=== PATIENT | male | born 1940 | race Caucasian/White ===

== ENCOUNTER → 2021-06-07 11:21 | Outpatient (CLI) | payer OTHER, SELFPAY ==
--- NOTE | ~2021-06-07 | XR_ITS ---
XR_[id number]_CR DATE: 06/07/2021 12:20 INDICATION: Fall. Right rib injury, pain TECHNIQUE: PA chest. 3 views of the right ribs. COMPARISON: 01/05/2019 PA and lateral chest FINDINGS: There is postoperative change from cervical as well as lumbar spinal fusion. There is diffuse osteopenia. No right rib fracture or bone destruction is evident. Old healed left lateral seventh and eighth rib fracture deformities are noted incidentally. Degenerative spurring and dextroscoliosis of the thoracic and lumbar spine. There is interposition of right colon between the diaphragm and the liver. IMPRESSION: Osteopenia; no apparent right rib fracture is noted Status post surgical cervical and lumbar spinal fusion Degenerative changes of the thoracic and lumbar spine Reviewed, dictated and finalized at [facility]. Reviewed, dictated and finalized at location A.
== END ==
PROVIDERS: PCP Family Medicine Adolescent Medicine; Visit Provider Family Medicine Adolescent Medicine
DX: R07.81 Pleurodynia (principal); M47.815 Spondylosis without myelopathy or radiculopathy, thoracolumbar region; Z98.1 Arthrodesis status
CPT/HCPCS: 71101

== ENCOUNTER → 2021-07-03 16:08 | Outpatient (CLI) | payer OTHER, SELFPAY ==
--- NOTE | ~2021-07-03 | XR_ITS ---
XR chest 2V DATE: 07/03/2021 16:55 INDICATION: Cough, rib pain TECHNIQUE: 2 views COMPARISON: 01/05/2019 PA and lateral chest FINDINGS: Multiple old left rib fracture deformities are again noted, present on 01/05/2019. Bilateral hyperinflation and relative flattening the diaphragm, consistent with COPD. No pulmonary infiltrate or consolidation, pleural effusion or pulmonary vascular congestion or pneumo thorax. Normal heart size. No hilar or mediastinal enlargement. Degenerative spurring of the thoracic spine. Diffuse osteopenia. IMPRESSION: Bilateral hyperinflation consistent with COPD Reviewed, dictated and finalized at location A.
--- NOTE | ~2021-07-03 | XR_ITS ---
XR foot RT min 3V DATE: 07/03/2021 16:55 INDICATION: Right foot injury, swelling TECHNIQUE: 4 views COMPARISON: None FINDINGS: There is a 3.7 mm long radiopaque foreign body measuring less than a millimeter maximal wid th, situated at the dorsal aspect of the soft tissues between the second and third metatarsophalangea l joints. There is diffuse osteopenia. There is osteoarthritis at the first metatarsophalangeal joint. There is osteoarthritic change at the first tarsometatarsal joint. There is minimal plantar calcaneal enthesopathy. No fracture, dislocation, periosteal reaction or bone destruction is detected. IMPRESSION: Diffuse osteopenia Radiopaque foreign body Osteoarthritis Reviewed, dictated and finalized at location A.
== END ==
PROVIDERS: PCP Family Medicine Adolescent Medicine; Visit Provider Physician Assistant
DX: S90.851A Superficial foreign body, right foot, initial encounter (principal); X58.XXXA Exposure to other specified factors, initial encounter; R91.8 Other nonspecific abnormal finding of lung field; M19.071 Primary osteoarthritis, right ankle and foot; M85.871 Other specified disorders of bone density and structure, right ankle and foot
CPT/HCPCS: 71046; 73630

== ENCOUNTER 2021-08-20 19:06 | Emergency (ER) | payer OTHER, SELFPAY ==
--- NOTE | ~2021-08-20 | XR_ITS ---
EXAMINATION: XR ribs LT 2V w CXR 2V DATE: 08/20/2021 22:23 INDICATION: Left rib pain. TECHNIQUE: Frontal and lateral views of the chest and 2 views on 3 radiographs of the left ribs were obtained. COMPARISON: Chest 2 views 07/03/2021, chest CT 01/05/2018 FINDINGS: CHEST TWO VIEWS: There is mild scarring at the lung apices. There are airspace opacities in the mid a nd lower lung zones with a basilar predominance. No pleural effusion or pneumothorax. The heart size is normal. There are changes of anterior fusion procedure in cervical spine. There are changes of pos terior fusion procedure in lumbar spine. LEFT RIBS: There are multiple old healed left rib fractures. There is an acute fracture of left seven th rib. IMPRESSION: 1. Acute fracture of left seventh rib. 2. Airspace opacities in the mid and lower lung zones, consistent with atelectasis versus pneumonia. Reviewed, dictated and finalized at location A. [employer] IMPRESSION: 1. Acute fracture of left seventh rib. 2. Airspace opacities in the mid and lower lung zones, consistent with atelecta sis versus pneumonia.
[2021-08-20 19:22] VITALS: BP 111/65; PULSE 98; RESP 16; TEMP 36.3; O2SAT 98
[2021-08-20 22:04] VITALS: BP 120/83; PULSE 76; RESP 18; O2SAT 96
[2021-08-20] MEDS: HYDROcodone/acetaminophen (*CRX) 5-325 MG TABLET 1 TAB PO (22:05)
--- NOTE | 2021-08-20 22:09 | PC.NURSE ---
Patient taken to xray via stretcher.
--- NOTE | 2021-08-20 22:22 | ED.GENADULT ---
HPI - General Adult General Chief complaint: Fall Stated complaint: fall with rib pain Time Seen by Provider: 08/20/21 21:46 History of Present Illness HPI narrative: Patient 80-year-old gentleman who presents the emergency department with chief complaint of left-sided rib pain. The patient reports that he was on the toilet and slid off the toilet and struck the left side of his chest wall against the bathtub. Patient reports no loss of consciousness reports he is on blood thinners had no head injury reports no back pain abdominal pain. Patient states the pain is worse with inspiration and worse with movement. Related Data Home Medications Medication Instructions Recorded Confirmed apixaban 5 mg tablet 5 mg PO BID 05/17/21 05/17/21 calcium carbonate 600 mg-vitamin 1 tablet PO BID 05/17/21 05/17/21 D3 20 mcg (800 unit) tablet donepezil 10 mg tablet 10 mg PO DAILY tablet 05/17/21 05/17/21 dutasteride 0.5 mg capsule 0.5 mg PO DAILY 05/17/21 05/17/21 gabapentin 100 mg capsule 100 mg PO QID cap 05/17/21 05/17/21 multivitamin 1 tablet PO DAILY 05/17/21 05/17/21 tamsulosin 0.4 mg capsule 0.4 mg PO DAILY 05/17/21 05/17/21 Allergies Allergy/AdvReac Type Severity Reaction Status Date / Time doxycycline Allergy Mild rash Verified 08/20/21 19:25 Review of Systems Review of Systems: A 10 system review of systems was completed on the patient and is negative except for what is stated in the HPI. Nursing and ancillary documentation was reviewed. [facility] Social History Social History Smoking status: Never smoker Alcohol intake: never Exam Narrative: GENERAL: Well-appearing, well-nourished, and in no acute distress. HEAD: Normocephalic, atraumatic. EYES: PERRLA and EOMI. ENT: Nares clear, no rhinorrhea or epistaxis. Mucous membranes moist. NECK: Supple. CHEST: Clear to auscultation. No respiratory distress. Tenderness to palpation on the left chest wall HEART: Regular rate and rhythm. No murmur heard. Normal peripheral pulses. ABDOMEN: Soft, nontender, nondistended, normal active bowel sounds. EXTREMITIES: Normal range of motion. No edema. SKIN: Warm, dry, no rash. NEURO: No focal deficits. Alert and oriented x3. PSYCH: Normal mood and affect. Course Course Emergency Course: Chest x-ray shows evidence of a rib fracture on the left side, no pneumothorax no pulmonary contusion Vital Signs Vital signs: Vital Signs Temperature 36.3 C L 08/20/21 19:22 Pulse Rate 98 08/20/21 19:22 Respiratory Rate 16 08/20/21 19:22 Blood Pressure 111/65 08/20/21 19:22 Pulse Oximetry 98 08/20/21 19:22 Temperature 36.3 C L 08/20/21 19:22 Pulse Rate 76 08/20/21 22:04 Respiratory Rate 18 08/20/21 22:04 Blood Pressure 120/83 08/20/21 22:04 Pulse Oximetry 96 08/20/21 22:04 Medical Decision Making Vital Signs Vital Signs: Vital Signs Temperature 36.3 C L 08/20/21 19:22 Pulse Rate 98 08/20/21 19:22 Respiratory Rate 16 08/20/21 19:22 Blood Pressure 111/65 08/20/21 19:22 Pulse Oximetry 98 08/20/21 19:22 Temperature 36.3 C L 08/20/21 19:22 Pulse Rate 76 08/20/21 22:04 Respiratory Rate 18 08/20/21 22:04 Blood Pressure 120/83 08/20/21 22:04 Pulse Oximetry 96 08/20/21 22:04 Discharge Plan Discharge Clinical Impression: Fracture of rib Qualifiers: Encounter type: initial encounter Rib fracture type: single rib Fracture type: closed Laterality: left Qualified Code(s): S22.32XA - Fracture of one rib, left side, initial encounter for closed fracture Patient Disposition: Home, Self-Care Condition: Stable Instructions: Antibiotic Form, Rib Fracture (ED), How to Use an Incentive Spirometer (ED) Prescriptions: New hydrocodone-acetaminophen 5-325 mg tablet 1 tablet PO Q6H PRN (Reason: pain) 3 Days Qty: 12 RF: 0 No Action dutasteride 0.5 mg capsule 0.5 mg PO DAILY RF: 0 tamsulosi
[2021-08-20 23:17] VITALS: BP 120/88; PULSE 76; RESP 17; O2SAT 94
== END 2021-08-20 23:22 | disposition home or self-care (01) ==
PROVIDERS: Emergency Provider Emergency Medicine; PCP Family Medicine Adolescent Medicine
DX: S22.32XA Fracture of one rib, left side, initial encounter for closed fracture (principal); W18.12XA Fall from or off toilet with subsequent striking against object, initial encounter
CPT/HCPCS: 71046; 71100; 99283; A9270

== ENCOUNTER → 2022-07-18 14:44 | Outpatient (CLI) | payer OTHER, SELFPAY ==
--- NOTE | ~2022-07-18 | DEXA_ITS ---
Bone Density Report Name: BARBIE GARCIA Age: 81 Sex: Male Ethnicity: White Date of : 1940 Indication: osteopenia; height loss; seizure disorder; Referring Provider: ZACH BROOKE Study: Bone densitometry was performed. Exam Date: July 18, 2022 Accession number: [id number] Bone Density: Region BMD T-score Z-score Classification AP Spine (L1, L2) 1.513 4.2 5.4 Normal Femoral Neck (Left) 0.620 -2.3 -0.6 Osteopenia Total Hip (Left) 0.850 -1.2 0.0 Osteopenia Femoral Neck (Right) 0.641 -2.1 -0.5 Osteopenia Total Hip (Right) 0.766 -1.8 -0.6 Osteopenia Total Hip Mean 0.808 -1.5 -0.3 Osteopenia World Health Organization criteria for BMD impression classify patients as: Normal (T-score at or above -1.0), Osteopenia (T-score between -1.0 and -2.5), or Osteoporosis (T-score at or below -2.5). 10-year Fracture Risk(1): Major Osteoporotic Fracture 10% Hip Fracture 4.6% Reported Risk Factors: [place] (), Neck BMD=0.620, BMI=25.0 (1) FRAX(R) Version 3.08. Fracture probability calculated for an untreated patient. Fracture probability may be lower if the patient has received treatment. Previous Exams: Region Exam Age BMD T-score BMD Change BMD Change Date g/cm2 vs Baseline vs Previous AP Spine(L1, L2) 07/18/2022 81 1.513 4.2 -0.033* -0.033* 11/03/2010 69 1.546 4.5 Total Hip(Left) 07/18/2022 81 0.850 -1.2 -0.010 -0.010 11/03/2010 69 0.860 -1.1 Total Hip(Right) 07/18/2022 81 0.766 -1.8 -0.068* -0.068* 11/03/2010 69 0.834 -1.3 *Denotes significance at 95% confidence level, LSC for AP Spine = 0.022 g/cm2, LSC for Total Hip = 0.027 g/cm2 Clinical Information Provided by Patient: Has used the following medications: Vitamin D, Calcium Has the following medical conditions: Any Seizure Disorders Patient maximum height was 70 No regular weight bearing exercise Drinks caffeinated beverages Impression: The patient has low bone mass, based on the Left Femoral Neck T-score. The patient has an estimated ten-year risk of hip fracture of 4.6% and an estimated ten-year risk of major fracture of 10%, based on the WHO FRAX algorithm. The BMD for the AP Spine(L1, L2) decreased, changing by -0.033 since the last DXA exam. The BMD for the Total Hip(Right) decreased, changing by -0.068 since the last DXA exam. Discussion: BONE DENSITY IS LOW AT ONE OR MORE SKELETAL SITES. THE JAMES
== END ==
PROVIDERS: PCP Family Medicine Adolescent Medicine; Visit Provider Physician Assistant
DX: M81.0 Age-related osteoporosis without current pathological fracture (principal); M85.852 Other specified disorders of bone density and structure, left thigh; M85.851 Other specified disorders of bone density and structure, right thigh
CPT/HCPCS: 77080

== ENCOUNTER 2022-07-27 01:50 | Inpatient (IN) | payer OTHER, SELFPAY ==
[2022-07-27] VITALS (52 sets, daily range): BP systolic 94–142; BP diastolic 55–84; PULSE 65–116; RESP 12–26; TEMP 36.1–36.8; O2SAT 87–100; BMI 20.9
--- NOTE | ~2022-07-27 | CT_ITS ---
EXAMINATION: CTA chest PE protocol DATE: 07/27/2022 05:49 INDICATION: Dyspnea TECHNIQUE: Computed tomography angiography (CTA) of the chest was performed with 100 mL Omnipaque-350 intravenous contrast timed to evaluate the pulmonary arteries. Coronal maximum intensity projection 3D-reconstructions were created by the technologist. Automated exposure control and iterative reconst ruction technique were employed. Exam dose: 580.17 mGy-cm total exam DLP. COMPARISON: 07/27/2022 AP chest 01/05/2018 CT pulmonary scan (examination reported extensive bilateral pulmonary emboli) FINDINGS: There is diagnostic contrast enhancement of the pulmonary arteries and no evidence of pulmo nary embolism. The ascending aorta measures up to approximately 4.3 cm diameter, the mid arch 2.7 cm diameter. No th oracic aortic dissection. Cardiomegaly. Coronary artery calcifications. Trace pericardial fluid. Posterior right apical and upper lobe discoid scarring. Prominent right lower lobe basilar discoid at electasis or scarring. There is prominent stricture of the left mainstem bronchus, which is nearly completely occluded, with prominent left lower lobe atelectasis and consolidation, left upper lobe infiltrate and atelectasis. There is left hilar and subcarinal lymph node prominence. No superior mediastinal, right paratracheal or hilar or axillary lymphadenopathy is noted. The adrenal glands and included upper abdominal structures are unremarkable. Status post anterior and interbody surgical spinal fusion. Status post posterior lumbar spine surgica l fusion. There are extensive degenerative changes of the cervical, thoracic and lumbar spine. 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 Bronchoscopic correlation and bio psy should be considered Left hilar and subcarinal lymphadenopathy No evidence of pulmonary embolism Ascending aortic ectasia (4.3 cm diameter) Reviewed, dictated and finalized at [facility]. Reviewed, dictated and finalized at location A. RUCTOR EXTENSION WORK IMPRESSION: Severe stricture/near occlusion of the left mainstem bronchus with associated left lung infiltrate/atelectasis, particularly affecting the left l ower lobe. Bronchoscopic correlation and biopsy should be considered Left hilar and subcarinal lymphadenopathy No evidence of pulmonary embolism Ascending aortic ectasia (4.3 cm diameter)
--- NOTE | ~2022-07-27 | XR_ITS ---
EXAMINATION: XR chest 1V DATE: 07/27/2022 02:37 INDICATION: COVID positive. Hypoxia. TECHNIQUE: frontal view of the chest was obtained. COMPARISON: Chest radiograph dated 08/20/2021 FINDINGS: Mild biapical pleural-parenchymal scarring. Improved aeration at the right lung base. Opacities in th e left lower lung zone. No pleural effusion or pneumothorax. The cardiomediastinal silhouette is norm al. Anterior plate and screw fixation for cervical anterior spinal fusion. Again seen are a few bilat eral anterior lower rib fractures. IMPRESSION: 1. Opacities in the left lower lung zone concerning for pneumonia versus less likely asymmetric pulmo nary edema or atelectasis. Reviewed, dictated and finalized at location A. VATION MANAGER IMPRESSION: 1. Opacities in the left lower lung zone concerning for pneumonia versus less l ikely asymmetric pulmonary edema or atelectasis.
--- NOTE | ~2022-07-27 | CT_ITS ---
EXAMINATION: CT cervical spine wo con DATE: 07/27/2022 02:24 INDICATION: Fall, head injury. Dementia. TECHNIQUE: Computed tomography (CT) of the cervical spine was performed without intravenous contrast. Automated exposure control and iterative reconstruction technique were employed. Exam dose: 141.81 mGy-cm total exam DLP. COMPARISON: None FINDINGS: C1 and C2 are normally aligned and the odontoid process appears intact. There is some promi nent cystic change of the odontoid process. Status post anterior and interbody spinal fusion at C3-C5. Severe degenerative disc disease at C5-6, C6-7. There is fusion at C7-T1 intervertebral disc spaces a nd severe degenerative disc disease at T1-T2. Degenerative change of the apophyseal joints of the cervical spine.. IMPRESSION: No recent fracture, dislocation, locked facet Status post anterior cervical spine fusion at C3-C5 Severe degenerative changes Reviewed, dictated and finalized at [facility]. Reviewed, dictated and finalized at location A. UNT UNDERWRITER
--- NOTE | ~2022-07-27 | CT_ITS ---
EXAMINATION: CT brain wo con DATE: 07/27/2022 02:23 INDICATION: Patient fell in wheelchair and struck head. History of dementia. TECHNIQUE: Computed tomography (CT) of the head was performed without intravenous contrast. The mA wa s adjusted according to patient size. Iterative reconstruction technique was employed. Exam dose: 68 1.00 mGy-cm total exam DLP. COMPARISON: 01/05/2018 CT brain FINDINGS: Probably calcified left frontal meningioma is again noted. Otherwise no intracranial mass l esion or hemorrhage or cerebrovascular accident is noted. No midline shift or mass effect effect. No subdural or epidural hematoma. There is moderately prominent central and cortical cerebral and cerebellar atrophy. No skull fracture or bone destruction is noted. The left mastoid air cells are clear. There is extensive fusion of the right mastoid air cells. There is complete opacification of the right maxillary sinus, prominent mucoperiosteal thickening and fluid level left maxillary sinus. There is severe opacification of the ethmoid air cells bilaterally and complete opacification of the right frontal sinus and fluid levels in the left frontal sinus. Mo derately prominent sphenoid sinus mucoperiosteal thickening. IMPRESSION: No skull fracture or acute intracranial finding Chronic ossified left frontal meningioma Moderately prominent central and cortical cerebral and cerebellar atrophy Extensive paranasal sinus disease, right mastoid effusions Reviewed, dictated and finalized at [facility]. Reviewed, dictated and finalized at location A. ING MACHINE OPERATOR
--- NOTE | ~2022-07-27 | XR_ITS ---
XR chest 1V portable 07/31/2022 09:11 Indication: Pneumonia Procedure: AP portable chest Comparison: Comparison to multiple prior studies sequentially, with oldest reviewed study dated 09/2020. Findings: Heart size normal. Persistent airspace disease left lung base which appears chronic. There is right upper lobe scarring. There are chronic healed left rib fractures. No significant effusion or pneumothorax. Impression: 1: Persistent chronic left basilar infiltrates, which may represent atelectasis/scarring versus atypi slade pneumonia.. Reviewed, dictated and finalized at location A. ET SWAGING MACHINE OPERATOR Impression: 1: Persistent chronic left basilar infiltrates, which may represent atelectasis /scarring versus atypical pneumonia..
--- NOTE | ~2022-07-27 | XR_ITS ---
EXAMINATION: XR chest 1V portable DATE: 07/30/2022 05:41 INDICATION: Atelectasis. TECHNIQUE: A single frontal view of the chest was obtained. COMPARISON: Chest single view 07/27/2022, chest CT 07/27/2022 FINDINGS: There are airspace opacities at left lung base. No pleural effusion or pneumothorax. The he art size is normal. Calcified left hilar lymph nodes are consistent with old granulomatous disease. T here are old healed left rib fractures. IMPRESSION: 1. Persistent airspace opacities at left lung base, consistent with pneumonia versus atelectasis. Reviewed, dictated and finalized at location A. GER ESTATE IMPRESSION: 1. Persistent airspace opacities at left lung base, consistent with pneumonia v ersus atelectasis.
--- NOTE | ~2022-07-27 | XR_ITS ---
EXAMINATION: XR hip BI 2V w AP pelvis DATE: 07/27/2022 02:36 INDICATION: Fall with dementia. TECHNIQUE: Anteroposterior view of the pelvis and anteroposterior and frog leg lateral views of the l eft hip and anteroposterior and frog-leg lateral views of the right hip and were obtained. COMPARISON: 09/26/2015 FINDINGS: Old healed fracture deformity left inferior pubic ramus. No acute fractures identified. Mild lumbar d extrocurvature and 2 mm right lateral listhesis of L4 on L5. L4-L5 posterior spinal fusion with bilat eral vertical plate and pedicle screw fixation. Chronic bone graft harvest site at the left posterior iliac spine. Severe lumbar spondylosis. Mild to moderate bilateral hip and sacroiliac osteoarthritis . Postoperative change of bilateral inguinal hernia repairs. IMPRESSION: 1. Old healed left inferior pubic ramus fracture. No acute osseous abnormality. Reviewed, dictated and finalized at location A. R OPERATOR
--- NOTE | ~2022-07-27 | XR_ITS ---
XR chest 1V portable 08/04/2022 06:15 Indication: Atelectasis. Procedure: AP portable chest Comparison: Comparison to multiple prior studies sequentially, with oldest reviewed study dated 08/02 and 07/27/2022. Findings: Heart size normal. There are left perihilar and basilar infiltrates with progression of the perihilar opacities. No significant effusion. No pneumothorax. Impression: 1: Progression of left perihilar infiltrates with stable left basilar opacities. Differential diagnos is includes pneumonia and/or atelectasis/scarring. Reviewed, dictated and finalized at location A. AL TREATMENT INVESTIGATOR Impression: 1: Progression of left perihilar infiltrates with stable left basilar opacities . Differential diagnosis includes pneumonia and/or atelectasis/scarring.
--- NOTE | 2022-07-27 02:27 | ED.FALL ---
HPI - Fall General Chief Complaint: Fall <YOUNG Alejandre Last Filed: 07/27/22 04:28> Stated Complaint: COVID+ FELL OUT OF W/C <YOUNG Alejandre Last Filed: 07/27/22 04:28> Time Seen by Provider: 07/27/22 04:18 <YOUNG Alejandre Last Filed: 07/27/22 04:28> Source: patient, EMS and old records reviewed <YOUNG Alejandre Last Filed: 07/27/22 04:28> Mode of arrival: EMS <YOUNG Alejandre Last Filed: 07/27/22 04:28> Limitations: dementia <YOUNG Alejandre Last Filed: 07/27/22 04:28> History of Present Illness HPI Narrative: Patient is a 81 y/o male who presents to the ED via EMS with c/o fall. Patient has a history of dementia and is alert and oriented x1 at baseline. He lives at home with his . Patient reportedly fell face first out of his wheelchair today. No LOC. Patient sustained a small skin abrasion to the top of his head. Bleeding controlled by the time of my evaluation. Patient denies any further areas of pain. Denies chest pain, shortness of breath. He is unable to tell me further how the fall occurred. Per EMS, they were diagnosed with COVID-19 1 week ago. Per EMS, patient's oxygenation was 88% on RA upon arrival. He was placed on 2L NC, given a nebulizer Tx en route, as well as SoluMedrol 125mgIV. Patient does not wear oxygen at home. Patient is wheelchair-bound at baseline. <YOUNG Alejandre Last Filed: 07/27/22 04:28> Related Data Home Medications: Home Medications Medication Instructions Recorded Confirmed calcium carbonate 600 mg-vitamin 1 tablet PO BID 05/17/21 05/03/22 D3 20 mcg (800 unit) tablet multivitamin 1 tablet PO DAILY 05/17/21 05/03/22 <YOUNG Alejandre Last Filed: 07/27/22 04:28> Allergies/Adverse Reactions: Allergies Allergy/AdvReac Type Severity Reaction Status Date / Time doxycycline Allergy Mild rash Verified 05/17/22 14:18 <Tonia Shin PA-C - Last Filed: 07/27/22 04:28> Review of Systems Review of Systems: ROS unobtainable: Yes unobtainable due to mental status <Tonia Shin PA-C - Last Filed: 07/27/22 04:28> [facility] Past Medical History Medical History: Medical History Atherosclerotic heart disease of [place] coronary artery without angina pectoris Chronic renal failure, stage 3a Epilepsy, unspecified, not intractable, without status epilepticus Erectile dysfunction Factor V Leiden HTN (hypertension) Thoracic aortic aneurysm <Tonia Shin PA-C - Last Filed: 07/27/22 04:28> Surgical History Surgical History: Surgical History History of fusion of cervical spine History of inguinal hernia repair, bilateral History of lumbar discectomy <Tonia Shin PA-C - Last Filed: 07/27/22 04:28> Family History Family History: Family History Mother Diabetes mellitus Heart disease Sibling Diabetes mellitus Father Dementia <Tonia Shin PA-C - Last Filed: 07/27/22 04:28> Social History Social History: Social History Smoking status: Never smoker Second hand tobacco smoke exposure: No Alcohol intake: never Substance use: never Substance use type: does not use Gender identity (if verbalized by the patient): Male Sexual Orientation (if Verbalized by the Patient): Straight or Heterosexual Spiritual care concerns: No <Tonia Shin PA-C - Last Filed: 07/27/22 04:28> Exam Narrative: GENERAL: Elderly, thin, frail, non-toxic, in no acute distress. HEAD: Normocephalic. Small skin abrasion to L superior scalp, no active bleeding. No deeper laceration. NECK: Supple. No adenopathy, no masses. No appreciable midli
--- NOTE | 2022-07-27 02:53 | ECG_ITS ---
Measurements Intervals [place] Rate: 91 P: 69 MA: 159 QRS: -40 QRSD: 90 T: 63 QT: 334 QTc: 412 Interpretive Statements SINUS RHYTHM ATRIAL TRIPLET AND ATRIAL PREMATURE COMPLEX LEFT AXIS DEVIATION ANTERIOR INFARCT, AGE INDETERMINATE BORDERLINE ST-T WAVE ABNORMALITY- HIGH LATERAL LEADS BASELINE ARTIFACT- I, II, III, AVR, AVL, AVF, V1-V6 ABNORMAL ECG NO PREVIOUS ECG AVAILABLE FOR COMPARISON Electronically Signed On 07-27-2022 9:45:35 TERRAZZO INSTALLER by Avtar Echevarria D.O.
[2022-07-27 03:53] LABS: Basophils Absolute Auto 0.1 K/mm3 (0.0-0.1); Basophils Percent Auto 0.3 % (0.2-1.2); Hematocrit 42.9 % (42.0-52.0); Hemoglobin 14.4 g/dL (14.0-18.0); Immature Granulocyte Absolute 0.14 K/mm3 (0.00-0.031); Immature Granulocyte Percent A 0.7 % (0-0.5); Mean Corpuscular HGB Conc 33.6 g/dl (32-36); Mean Corpuscular Volume 89.4 fl (80-100); Mean Platelet Volume 9.6 fl (7.4-10.4); Monocytes Absolute Auto 0.4 K/mm3 (0.1-0.6); Neutrophils Absolute Auto 19.1 K/mm3 (1.3-6.7); Neutrophils Percent Auto 95.5 % (45.5-73.1); Platelet Count Result 349 k/mm3 (150-375); Red Cell Distribution Width 12.5 % (11.5-14.5)
[2022-07-27 04:02] LABS: Alanine Aminotransferase 26 U/L (6-50); Albumin Level 3.5 g/dL (3.5-5.1); Alkaline Phosphatase 119 U/L (38-126); Anion Gap 8 mmol/L (8-16); Aspartate Amino Transferase 30 U/L (17-59); Bilirubin,Total 0.5 mg/dL (0.2-1.3); Blood Urea Nitrogen 16 mg/dL (9-20); Calcium 8.8 mg/dL (8.4-10.2); Carbon Dioxide 25 mmol/L (22-30); Chloride 105 mmol/L (98-107); Estimated Glomerular Filt Rate > 60; Glucose 208 mg/dL (65-110); Potassium 3.7 mmol/L (3.4-5.0); Sodium 138 mmol/L (137-145)
[2022-07-27 04:03] LABS: INR 1.7; Prothrombin Time 19.6 Seconds (11.1-14.7)
[2022-07-27 04:04] LABS: Partial Thromboplastin Time 44.3 SECONDS (22.3-36.8)
[2022-07-27 04:13] LABS: Lymphocytes Percent Auto 1.5 % (18.3-44.2)
[2022-07-27 04:14] LABS: NT Pro B Type Natriuretic Pept 331 pg/mL (5-100); Troponin I < 0.012 ng/mL (0.000-0.034)
[2022-07-27] MEDS: SODIUM CHLORIDE 0.9% IV 1,000 ML 999 ML IV CONT (04:36)
[2022-07-27 04:45] LABS: Influenza A QL RT-PCR Negative (Negative); Influenza B QL RT-PCR Negative (Negative); SARS-CoV-2 RNA PCR Positive
[2022-07-27 05:07] LABS: Lactic Acid Reflex 1.1 mmol/L (0.7-2.0)
[2022-07-27 05:08] LABS: Add Urine Microscopic? YES; Appearance Urine Turbid (Clear); Bilirubin Urine 1+ (Negative); Blood Urine 2+ (Negative); Color Urine Brown (Yellow); Glucose Urine UA Negative (Negative); Ketones Urine 1+ mg/dL (Negative); Leukocyte Esterase Ur Trace LEU/UL (Negative); Nitrate Urine Negative (Negative); Protein Urine 2+ mg/dL (Negative); Specific Grav Ur 1.015 (1.001-1.035); Urobilinogen Urine 0.2 mg/dL (<2.0); pH Urine >=9.0 (5.0-9.0)
[2022-07-27 05:13] LABS: Bacteria Urine Trace /hpf; Mucus Urine Heavy /lpf; RBC Urine >75 /hpf (0-2); WBC Urine 31-50 /hpf
[2022-07-27 05:24] LABS: Alveolar/Arterial O2 Gradient 46.7 mmHg; Base Excess ABG -0.4 mEq/l (+/-2.0); Fractional Inspired Oxygen 30 %; HCO3 ABG 23.8 mEq/l (22.0-26.0); Methemoglobin ABG 0.4 %THb (0-1.5); Oxygen Content ABG 19.2 %vol (16.0-22.0); Oxygen Saturation ABG 98.5 % (95.0-100.0); Oxyhemoglobin 96.7 % THb (90.0-100.0); PCO2 ABG 37.5 mmHg (35.0-45.0); PO2 ABG 123.1 mmHg (80.0-100.0); Reduced Hemoglobin 1.9 %THb (0-5.0)
[2022-07-27 05:28] LABS: Device NON-REBREATHER MASK; Modified Allen's Test Pass; Site Drawn RIGHT RADIAL
--- NOTE | 2022-07-27 06:41 | PM.IMHP ---
H&P: HPI History of Present Illness Date/Time: 07/27/22 06:41 Chief Complaint: Fell out of his wheelchair and hit his head Narrative: 81-year-old male with past medical history of dementia, BPH, seizure disorder abdominal aortic aneurysm, factor 5 laden and bolus pemphigoid was brought in from home due to falling out of his wheelchair and hitting his head. According to nursing report the patient was diagnosed with COVID 6 days ago. His is at home currently with COVID. The patient is oriented to self only at baseline and is unable to provide history and has such history of physical is obtained from ER records. EMS reported that the patient was found to be 88% on room air he was placed on 2 L nasal cannula shortly after arriving to the ER the patient's oxygen saturations dropped progressively until he ended up on 6 L nasal cannula. He was still dropping his oxygen saturations they tried to place patient on high-flow but he was a mouth breather. Subsequently the patient was placed on a non-rebreather. Patient falls asleep in his eyes roll back in his head any does have snoring with intermittent bouts of apnea. Subsequently ABG was performed the patient had no evidence of CO2 retention. Patient had marked leukocytosis but was afebrile. Imaging ruled out any obvious fractures. CT of the head demonstrated no acute process. However given severe hypoxia patient received CT of the chest PE protocol despite being on Eliquis due to history of hypercoagulable state with factor 5 laden and concurrent COVID infection. CTA demonstrated left mainstem bronchus compression possibly due to neoplastic mass. Left base atelectasis with probable aspiration or postobstructive pneumonia. Possible findings consistent with previous operative changes in the left hilar region. Review of Systems Review of Systems: 12 systems were reviewed with pertinent positives and negatives per HPI. Except as documented in the HPI, all other systems were reviewed and are negative. Review of systems was nearly impossible due to the patient's history of dementia. [facility] Past Medical History Medical History (Updated 07/27/22 @ 09:10 by Jessika Joy DO) Atherosclerotic heart disease of [place] coronary artery without angina pectoris BPH (benign prostatic hyperplasia) Chronic renal failure, stage 3a Dementia Erectile dysfunction Factor V Leiden HTN (hypertension) Osteoporosis Peripheral neuropathy Pulmonary embolism with acute cor pulmonale (12/2017) He was transferred to tertiary care for thrombectomy with echo at that time demonstrated severe pulmonary hypertension and positive Adame sign Seizure disorder Thoracic aortic aneurysm Urge incontinence of urine Surgical History Surgical History History of fusion of cervical spine History of inguinal hernia repair, bilateral History of lumbar discectomy Family History Family History Mother Diabetes mellitus Heart disease Sibling Diabetes mellitus Father Dementia Social History Social History (Updated 07/27/22 @ 09:01 by Jessika Joy DO) Social History: Patient has been for 62 years. He used to smoke in the distant past. Does not drink alcohol. He lives at home with his . He is wheelchair bound. Smoking status: Never smoker Second hand tobacco smoke exposure: No Alcohol intake: never Substance use: never Substance use type: does not use Lack of Transportation: No Lack of Food: Never True Current Housing: I Have Housing Concerned About Future Housing: No Difficulty Paying Gas/Electric Bills: No Difficulty Paying for Meds: No Currently Unemployed: No Education: High School Diploma/GED Difficulty w/ Childcare or Family Care: No Gender identity (if verbalized by the patient): Male Sexual Orientation (if Verbalized by the Patient): Straight or
[2022-07-27] MEDS: SODIUM CHLORIDE 0.9% IV 1,000 ML 80 ML IV CONT (06:47)
--- NOTE | 2022-07-27 10:08 | PC.NURSE ---
Patient care report called to ANDREA Middleton. All questions answered at this time.
--- NOTE | 2022-07-27 11:41 | PCSTNOTE ---
Please refer to the Bedside Swallow Evaluation in the EMR. Please note, silent aspiration cannot be ruled out at bedside.
[2022-07-27] MEDS: levETIRAcetam 500MG/NACL 100ML 500 MG/100 ML BAG 400 MG IVPB (11:44)
[2022-07-27] MEDS: REMDESIVIR 200 MG/NS 250 ML 200 MG/250 ML BAG 250 MG IVPB (13:26)
[2022-07-27] MEDS: ALBUTEROL SULFATE NEB 2.5 MG/3 ML INH 5 MG INHALATION ×2 (14:01→21:00)
[2022-07-27] MEDS: IPRATROPIUM BR 0.02% INH SOLN 0.5 MG/2.5 ML VIAL INHALATION ×2 (14:01→21:05)
--- NOTE | 2022-07-27 14:21 | ADMGEN ---
This patient, Juan Manuel Vargas, was admitted to IMU Room 232-01 on 07/27/22 at 1020. Patient/family oriented to hospital policies and general routines including ID bracelet, bed and alarms, visiting hours, pain management, procedures, bathroom and other care routines, personal items, smoking policy, room service/diet, and visiting hours. Information on how to activate the Rapid Response Team has been discussed. Patient/Family are encouraged to report perceived risks to care and to ask questions if they do not understand what they are told or what they should do.
--- NOTE | 2022-07-27 14:59 | PM.IMPN ---
Progress Note: A&P Assessment and Plan (1) Acute respiratory failure with hypoxia: Code(s): J96.01 - Acute respiratory failure with hypoxia Status: Acute Assessment and Plan: 07/27/2022 interval history: patient remains hypoxic with COVID started on dexamethasone and remdesivir, will continue to monitor, will have PT OT evaluate the patient and further recommendation to follow. (2) COVID-19: Code(s): U07.1 - COVID-19 Status: Acute (3) Aspiration pneumonia: Code(s): J69.0 - Pneumonitis due to inhalation of food and vomit Status: Acute (4) Bronchial obstruction: Code(s): J98.09 - Other diseases of bronchus, not elsewhere classified Status: Acute (5) Chronic renal failure, stage 3a: Code(s): N18.31 - Chronic kidney disease, stage 3a Status: Chronic (6) Factor V Leiden: Code(s): D68.51 - Activated protein C resistance Status: Chronic (7) BPH (benign prostatic hyperplasia): Code(s): N40.0 - Benign prostatic hyperplasia without lower urinary tract symptoms Status: Acute Plan Severe acute hypoxic respiratory failure likely due to COVID and concomitant compression of left mainstem bronchus with associated postobstructive versus aspiration pneumonia. On exam patient has thick yellow mucus in his posterior oropharynx in coding is soft palate, patient has a weak cough and will not likely built to provide sputum specimen. He has received Decadron and Remdesivir for COVID. Will also place patient on broad-spectrum antibiotic coverage with cefepime and vancomycin. Pulmonology has been consulted for recommendations see the patient may benefit from bronchoscopy to evaluate bronchus compression. Will start the patient on scheduled nebulizer treatments with albuterol and Atrovent. CT and states possible enterocolitis but the patient is sound having any GI symptoms. 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 Patient has BPH. Will resume home prostate medications when med arcus available for review. Patient would benefit from swallow eval given possibility of aspiration. Will leave NPO except for meds until after speech therapy evaluate the patient. Patient was seen and examined in the ER. Patient's condition is critical overall prognosis is poor patient has borderline low blood pressures. Will provide 1 more L fluid bolus. Will continue broad-spectrum antibiotic coverage. Blood cultures and urine cultures pending. Given the patient's history of seizure disorder will switch Keppra to IV while he is seriously ill. As I am not convinced the patient swallowed pills without increased aspiration. Subjective Date/time seen: 07/27/22 14:59 Severe acute hypoxic respiratory failure likely due to COVID and concomitant compression of left mainstem bronchus with associated postobstructive versus aspiration pneumonia. On exam patient has thick yellow mucus in his posterior oropharynx in coding is soft palate, patient has a weak cough and will not likely built to provide sputum specimen. He has received Decadron and Remdesivir for COVID. Will also place patient on broad-spectrum antibiotic coverage with cefepime and vancomycin. Pulmonology has been consulted for recommendations see the patient may benefit from bronchoscopy to evaluate bronchus compression. Will start the patient on scheduled nebulizer treatments with albuterol and Atrovent. CT and states possible enterocolitis but the patient is sound having any GI symptoms. 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 Patient has BPH. Will resume home prostate medications when med arcus available for review. Patient would benefit from swallow eval given possibility of aspiration. Will leave NPO except for meds until after speech therapy niko
[2022-07-27] MEDS: GABAPENTIN 100 MG CAPSULE 200 MG PO (18:15)
[2022-07-27] MEDS: APIXABAN 5 MG TABLET PO (18:16)
[2022-07-27] MEDS: OXYBUTYNIN CHLORIDE 5 MG TABLET PO (18:23)
[2022-07-27] MEDS: levETIRAcetam 500 MG TABLET 1000 MG BY MOUTH (22:36)
[2022-07-28] VITALS (13 sets, daily range): BP systolic 96–126; BP diastolic 54–77; PULSE 66–88; RESP 16–20; TEMP 36.3–36.5; O2SAT 94–98
--- NOTE | 2022-07-28 01:39 | PCRCNOTE ---
initially charted against wrong time.
[2022-07-28] MEDS: ALBUTEROL SULFATE NEB 2.5 MG/3 ML INH 5 MG INHALATION ×3 (02:13→14:49)
[2022-07-28] MEDS: IPRATROPIUM BR 0.02% INH SOLN 0.5 MG/2.5 ML VIAL INHALATION ×3 (02:14→14:49)
[2022-07-28] MEDS: SODIUM CHLORIDE 0.9% IV 1,000 ML 80 ML IV CONT ×2 (04:27→16:44)
[2022-07-28 04:40] LABS: Basophils Percent Auto 0.1 % (0.2-1.2); Hematocrit 36.3 % (42.0-52.0); Hemoglobin 12.2 g/dL (14.0-18.0); Immature Granulocyte Absolute 0.15 K/mm3 (0.00-0.031); Immature Granulocyte Percent A 0.7 % (0-0.5); Lymphocytes Absolute Auto 0.96 K/mm3 (0.9-3.2); Lymphocytes Percent Auto 4.3 % (18.3-44.2); Mean Corpuscular HGB Conc 33.6 g/dl (32-36); Mean Corpuscular Hemoglobin 29.7 pg (26-34); Mean Corpuscular Volume 88.3 fl (80-100); Mean Platelet Volume 9.6 fl (7.4-10.4); Monocytes Percent Auto 4.3 % (2.6-8.5); Neutrophils Absolute Auto 20.1 K/mm3 (1.3-6.7); Neutrophils Percent Auto 90.6 % (45.5-73.1); Platelet Count Result 329 k/mm3 (150-375); Red Blood Count 4.11 M/mm3 (4.6-6.20); Red Cell Distribution Width 12.5 % (11.5-14.5); White Blood Count 22.2 K/mm3 (4.5-10.0)
[2022-07-28 04:47] LABS: INR 1.7; Prothrombin Time 19.2 Seconds (11.1-14.7)
[2022-07-28 05:02] LABS: Alanine Aminotransferase 24 U/L (6-50); Albumin Level 2.7 g/dL (3.5-5.1); Alkaline Phosphatase 104 U/L (38-126); Anion Gap 3 mmol/L (8-16); Aspartate Amino Transferase 31 U/L (17-59); Bilirubin,Total 0.2 mg/dL (0.2-1.3); Blood Urea Nitrogen 19 mg/dL (9-20); Calcium 8.5 mg/dL (8.4-10.2); Carbon Dioxide 27 mmol/L (22-30); Chloride 109 mmol/L (98-107); Estimated CRCL calculation 38 ml/min; Estimated Glomerular Filt Rate > 60; Glucose 124 mg/dL (65-110); Lactate Dehydrogenase 164 U/L (120-246); Magnesium 2.2 mg/dL (1.6-2.3); Phosphorus 3.2 mg/dL (2.5-4.5); Potassium 4.2 mmol/L (3.4-5.0); Sodium 139 mmol/L (137-145)
[2022-07-28 05:16] LABS: D Dimer 0.76 ug/mL (<0.48)
[2022-07-28 05:23] LABS: CRP 12.3 mg/dL (<1.0)
[2022-07-28 05:38] LABS: Thyroid Stimulating Hormone Reflex 0.407 uIU/mL (0.465-4.68)
[2022-07-28 06:20] LABS: Free T4 Free Thyroxine Reflex 2.21 ng/dL (0.78-2.19)
[2022-07-28] MEDS: DUTASTERIDE 0.5 MG CAPSULE PO (09:28)
[2022-07-28] MEDS: MULTIVITAMINS /C LUTEIN (CENTRUM SILVER) TABLET *BKC 1 TAB PO (09:28)
[2022-07-28] MEDS: GABAPENTIN 100 MG CAPSULE 200 MG PO ×2 (09:28→16:43)
[2022-07-28] MEDS: DONEPEZIL HCL 10 MG TABLET PO (09:28)
[2022-07-28] MEDS: CALCIUM CARBONATE (OSCAL) 500 MG TABLET PO (09:28)
[2022-07-28] MEDS: APIXABAN 5 MG TABLET PO ×2 (09:28→16:43)
[2022-07-28] MEDS: TAMSULOSIN HCL 0.4 MG CAPSULE PO (09:28)
[2022-07-28] MEDS: OXYBUTYNIN CHLORIDE 5 MG TABLET PO ×2 (09:29→16:43)
[2022-07-28] MEDS: levETIRAcetam 500 MG TABLET BY MOUTH (09:29)
--- NOTE | 2022-07-28 11:19 | PC.NURSE ---
Report given to ANDREA Santos with 3 med-surg at 1112. All questions answered and plan of care reviewed. Patient to transfer to 3 med-surg room 332.
[2022-07-28] MEDS: REMDESIVIR 100 MG/NS 250 ML 100 MG/250 ML BAG 250 MG IVPB (11:25)
--- NOTE | 2022-07-28 12:00 | PC.NURSE ---
This patient, Juan Manuel Vargas, was received from [imu] on 07/28/22 at 1145. Patient/family oriented to unit policies and routines. report from Nicky Swan
--- NOTE | 2022-07-28 12:41 | PM.IMPN ---
Progress Note: A&P Assessment and Plan (1) Acute respiratory failure with hypoxia: Code(s): J96.01 - Acute respiratory failure with hypoxia Status: Acute Assessment and Plan: 07/28/2022 interval history: upon arrival?patient was hypoxic with COVID and was requiring high flow N/C, was started on dexamethasone 2/10 and remdesivir 2/5, today patient is feeling much better and stats doing better, will continue to monitor,? will have PT OT evaluate the patient and further recommendation to follow. patient will benefit going to rehab. (2) COVID-19: Code(s): U07.1 - COVID-19 Status: Acute (3) Aspiration pneumonia: Code(s): J69.0 - Pneumonitis due to inhalation of food and vomit Status: Acute (4) Bronchial obstruction: Code(s): J98.09 - Other diseases of bronchus, not elsewhere classified Status: Acute (5) Chronic renal failure, stage 3a: Code(s): N18.31 - Chronic kidney disease, stage 3a Status: Chronic (6) Factor V Leiden: Code(s): D68.51 - Activated protein C resistance Status: Chronic (7) BPH (benign prostatic hyperplasia): Code(s): N40.0 - Benign prostatic hyperplasia without lower urinary tract symptoms Status: Acute Plan Severe acute hypoxic respiratory failure likely due to COVID and concomitant compression of left mainstem bronchus with associated postobstructive versus aspiration pneumonia. On exam patient has thick yellow mucus in his posterior oropharynx in coding is soft palate, patient has a weak cough and will not likely built to provide sputum specimen. He has received Decadron and Remdesivir for COVID. Will also place patient on broad-spectrum antibiotic coverage with cefepime and vancomycin. Pulmonology has been consulted for recommendations see the patient may benefit from bronchoscopy to evaluate bronchus compression. Will start the patient on scheduled nebulizer treatments with albuterol and Atrovent. CT and states possible enterocolitis but the patient is sound having any GI symptoms. 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 Patient has BPH. Will resume home prostate medications when med arcus available for review. Patient would benefit from swallow eval given possibility of aspiration. Will leave NPO except for meds until after speech therapy evaluate the patient. Patient was seen and examined in the ER. Patient's condition is critical overall prognosis is poor patient has borderline low blood pressures. Will provide 1 more L fluid bolus. Will continue broad-spectrum antibiotic coverage. Blood cultures and urine cultures pending. Given the patient's history of seizure disorder will switch Keppra to IV while he is seriously ill. As I am not convinced the patient swallowed pills without increased aspiration. Subjective Date/time seen: 07/28/22 12:41 07/28/2022 interval history: upon arrival?patient was hypoxic with COVID and was requiring high flow N/C, was started on dexamethasone 2/10 and remdesivir 2/5, today patient is feeling much better and stats doing better, will continue to monitor,? will have PT OT evaluate the patient and further recommendation to follow. patient will benefit going to rehab. Review of Systems Review of Systems: per HPI Exam Narrative: elderly frail Patient is comfortable, NAD HEENT: eyes are clear and none icteric LUNGS: normal respiratory effort ABD: not distended Lower extremities: no edema SKIN: nonjaundiced Neuro: grossly intact. Objective Data Vital Signs Vital Signs: Vital Signs - 24 hr 07/27/22 13:58 07/27/22 13:58 07/27/22 14:08 Temperature Pulse Rate 78 79 Respiratory Rate 22 H 22 H Blood Pressure Pulse Oximetry 97 Oxygen Delivery Room Air Oxygen Flow Rate 07/27/22 14:00 07/27/22 16:00 07/27/22 16:00 Temperature 97.3 F L Pulse Rate 77 71
[2022-07-28] MEDS: levETIRAcetam 500 MG TABLET 1000 MG BY MOUTH (20:48)
[2022-07-29] VITALS (13 sets, daily range): BP systolic 101–136; BP diastolic 63–80; PULSE 73–108; RESP 16–20; TEMP 35.8–36.6; O2SAT 91–96
[2022-07-29 07:28] LABS: INR 1.6; Prothrombin Time 18.9 Seconds (11.1-14.7)
[2022-07-29 07:31] LABS: Alanine Aminotransferase 32 U/L (6-50); Estimated CRCL calculation 49 ml/min; Estimated Glomerular Filt Rate > 60
[2022-07-29] MEDS: GABAPENTIN 100 MG CAPSULE 200 MG PO ×2 (08:12→17:55)
[2022-07-29] MEDS: OXYBUTYNIN CHLORIDE 5 MG TABLET PO ×2 (08:12→17:12)
[2022-07-29] MEDS: MULTIVITAMINS /C LUTEIN (CENTRUM SILVER) TABLET *BKC 1 TAB PO (08:12)
[2022-07-29] MEDS: APIXABAN 5 MG TABLET PO ×2 (08:12→17:12)
[2022-07-29] MEDS: levETIRAcetam 500 MG TABLET BY MOUTH (08:13)
[2022-07-29] MEDS: TAMSULOSIN HCL 0.4 MG CAPSULE PO (08:13)
[2022-07-29] MEDS: CALCIUM CARBONATE (OSCAL) 500 MG TABLET PO (08:13)
[2022-07-29] MEDS: DONEPEZIL HCL 10 MG TABLET PO (08:13)
[2022-07-29] MEDS: DUTASTERIDE 0.5 MG CAPSULE PO (08:14)
[2022-07-29] MEDS: IPRATROPIUM BR 0.02% INH SOLN 0.5 MG/2.5 ML VIAL INHALATION ×3 (08:18→21:32)
[2022-07-29] MEDS: ALBUTEROL SULFATE NEB 2.5 MG/3 ML INH 5 MG INHALATION ×3 (08:18→21:32)
[2022-07-29] MEDS: REMDESIVIR 100 MG/NS 250 ML 100 MG/250 ML BAG 250 MG IVPB (09:30)
[2022-07-29 11:58] LABS: Vancomycin Trough 10.9 ug/mL (10.0-20.0)
--- NOTE | 2022-07-29 13:20 | PM.IMPN ---
Progress Note: A&P Assessment and Plan (1) Acute respiratory failure with hypoxia: Code(s): J96.01 - Acute respiratory failure with hypoxia Status: Acute Assessment and Plan: 07/29/2022 interval history: upon arrival?patient was hypoxic with COVID and was requiring high flow N/C, was started on dexamethasone 11/09 and remdesivir /, today patient is feeling much better and stats doing better, patient is on room air, will continue to monitor,? will have PT OT evaluate the patient and further recommendation to follow. patient is a wheelchair-bound (2) COVID-19: Code(s): U07.1 - COVID-19 Status: Acute (3) Aspiration pneumonia: Code(s): J69.0 - Pneumonitis due to inhalation of food and vomit Status: Acute (4) Bronchial obstruction: Code(s): J98.09 - Other diseases of bronchus, not elsewhere classified Status: Acute (5) Chronic renal failure, stage 3a: Code(s): N18.31 - Chronic kidney disease, stage 3a Status: Chronic (6) Factor V Leiden: Code(s): D68.51 - Activated protein C resistance Status: Chronic (7) BPH (benign prostatic hyperplasia): Code(s): N40.0 - Benign prostatic hyperplasia without lower urinary tract symptoms Status: Acute Plan Severe acute hypoxic respiratory failure likely due to COVID and concomitant compression of left mainstem bronchus with associated postobstructive versus aspiration pneumonia. On exam patient has thick yellow mucus in his posterior oropharynx in coding is soft palate, patient has a weak cough and will not likely built to provide sputum specimen. He has received Decadron and Remdesivir for COVID. Will also place patient on broad-spectrum antibiotic coverage with cefepime and vancomycin. Pulmonology has been consulted for recommendations see the patient may benefit from bronchoscopy to evaluate bronchus compression. Will start the patient on scheduled nebulizer treatments with albuterol and Atrovent. CT and states possible enterocolitis but the patient is sound having any GI symptoms. 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 Patient has BPH. Will resume home prostate medications when med arcus available for review. Patient would benefit from swallow eval given possibility of aspiration. Will leave NPO except for meds until after speech therapy evaluate the patient. Patient was seen and examined in the ER. Patient's condition is critical overall prognosis is poor patient has borderline low blood pressures. Will provide 1 more L fluid bolus. Will continue broad-spectrum antibiotic coverage. Blood cultures and urine cultures pending. Given the patient's history of seizure disorder will switch Keppra to IV while he is seriously ill. As I am not convinced the patient swallowed pills without increased aspiration. Subjective Date/time seen: 07/29/22 13:20 07/29/2022 interval history: upon arrival?patient was hypoxic with COVID and was requiring high flow N/C, was started on dexamethasone 11/09 and remdesivir 11/04, today patient is feeling much better and stats doing better, patient is on room air, will continue to monitor,? will have PT OT evaluate the patient and further recommendation to follow. patient is a wheelchair-bound Exam Narrative: elderly frail Patient is comfortable, NAD HEENT: eyes are clear and none icteric LUNGS: normal respiratory effort ABD: not distended Lower extremities: no edema SKIN: nonjaundiced Neuro: grossly intact. Objective Data Vital Signs Vital Signs: Vital Signs - 24 hr 07/28/22 14:49 07/28/22 15:05 07/28/22 16:00 Temperature Pulse Rate 74 77 88 Respiratory Rate 18 18 Blood Pressure Pulse Oximetry Oxygen Delivery Oxygen Flow Rate 07/28/22 16:00 07/28/22 16:00 07/28/22 20:00 Temperature 97.3 F L Pulse Rate 72 Respiratory Rate 18 Blood
--- NOTE | 2022-07-29 16:46 | PM.CNPUL ---
Assessment and Plan Assessment and plan (1) COVID-19: Code(s): U07.1 - COVID-19 Status: Acute (2) Acute respiratory failure with hypoxia: Code(s): J96.01 - Acute respiratory failure with hypoxia Status: Acute Assessment and Plan: 81-year-old man with a history of dementia, Hospitalized with hypoxemia left lower lobe infiltrate/ atelectasis with volume loss on the left probably due to left mainstem bronchus mucous plugging versus tumor. Respiratory status has improved as patient is currently on just room air. On physical exam he continues to have a decreased breath sounds at left base posteriorly. We will continue with current antibiotic regimen at this point and repeat chest x-ray in a.m.. Added incentive spirometry. Regarding recent COVID 19 positive testing at home, the chest CT showed unilateral infiltrate which is not consistent with COVID-19 infection. furthermore, the positive COVID test was more than 7 days ago and the patient's respiratory status has improved. I have discontinued remdesivir and IV dexamethasone. Will consider bronchoscopy if left lung atelectasis persists. (3) Bronchial obstruction: Code(s): J98.09 - Other diseases of bronchus, not elsewhere classified Status: Acute (4) Aspiration pneumonia: Code(s): J69.0 - Pneumonitis due to inhalation of food and vomit Status: Acute (5) Epilepsy, unspecified, not intractable, without status epilepticus: Code(s): G40.909 - Epilepsy, unspecified, not intractable, without status epilepticus Status: Chronic (6) Factor V Leiden: Code(s): D68.51 - Activated protein C resistance Status: Chronic (7) Dementia: Code(s): F03.90 - Unspecified dementia, unspecified severity, without behavioral disturbance, psychotic disturbance, mood disturbance, and anxiety Status: Chronic History of Present Illness History of Present Illness Consult date: 07/29/22 Chief complaint: COVID 19/Acute Respiratory Failure w Hypoxia/L Richard Narrative: this 81-year-old man was brought into the hospital after he fell at home. He has got history of dementia, seizure disorder, abdominal aortic aneurysm, factor 5 laden,. The patient lives at home. Reportedly approximately 7 days prior to this admission he and his tested positive for COVID-19 infection. After he fell at home, he was brought into the emergency room by EMS who found him to be hypoxemic. Workup with a chest CT showed left lung infiltrate/ atelectasis especially of the left lower lobe with evidence of volume loss on the left most likely related to left mainstem occluding lesion question mucus plugging versus malignancy. In addition there was mild hilar and mediastinal lymphadenopathy. On admission the WBC was elevated and the patient has been treated with antibiotics, cefepime and vancomycin. In addition he has been on treatment with remdesivir and dexamethasone for COVID-19 pneumonia. Over the last 2 days the patient's respiratory status has improved. Currently the patient is on room air. Upon questioning the patient denied having any respiratory symptoms. His WBC remains elevated but patient is on IV dexamethasone. Review of Systems Review of Systems: ROS unobtainable: Yes unobtainable due to medical condition PMFSH Past Medical History Medical History (Updated 07/27/22 @ 09:10 by Jessika Joy, DO) Atherosclerotic heart disease of [place] coronary artery without angina pectoris BPH (benign prostatic hyperplasia) Chronic renal failure, stage 3a Dementia Erectile dysfunction Factor V Leiden HTN (hypertension) Osteoporosis Peripheral neuropathy Pulmonary embolism with acute cor pulmonale (12/2017) He was transferred to tertiary care for thrombectomy with echo at that time demonstrated severe pulmonary hypertension and positive Adame sign Seizure disorder Thoracic aortic aneurysm Urge incontinence of urine Surgical History S
[2022-07-29] MEDS: levETIRAcetam 500 MG TABLET 1000 MG BY MOUTH (20:41)
[2022-07-30] VITALS (12 sets, daily range): BP systolic 109–140; BP diastolic 65–94; PULSE 50–100; RESP 16–20; TEMP 35.7–36.9; O2SAT 90–100
[2022-07-30] MEDS: ALBUTEROL SULFATE NEB 2.5 MG/3 ML INH 5 MG INHALATION ×3 (02:03→14:01)
[2022-07-30] MEDS: IPRATROPIUM BR 0.02% INH SOLN 0.5 MG/2.5 ML VIAL INHALATION ×3 (02:03→14:01)
[2022-07-30 07:37] LABS: Hematocrit 40.1 % (42.0-52.0); Hemoglobin 13.3 g/dL (14.0-18.0); Mean Corpuscular HGB Conc 33.2 g/dl (32-36); Mean Corpuscular Hemoglobin 29.4 pg (26-34); Mean Corpuscular Volume 88.7 fl (80-100); Mean Platelet Volume 9.4 fl (7.4-10.4); Platelet Count Result 357 k/mm3 (150-375); Red Blood Count 4.52 M/mm3 (4.6-6.20); Red Cell Distribution Width 12.7 % (11.5-14.5); White Blood Count 12.6 K/mm3 (4.5-10.0)
[2022-07-30 07:51] LABS: INR 1.8; Prothrombin Time 20.6 Seconds (11.1-14.7)
[2022-07-30 08:17] LABS: Alanine Aminotransferase 34 U/L (6-50); Albumin Level 2.9 g/dL (3.5-5.1); Alkaline Phosphatase 88 U/L (38-126); Anion Gap 5 mmol/L (8-16); Aspartate Amino Transferase 54 U/L (17-59); Bilirubin,Total 0.3 mg/dL (0.2-1.3); Blood Urea Nitrogen 13 mg/dL (9-20); Calcium 8.5 mg/dL (8.4-10.2); Carbon Dioxide 26 mmol/L (22-30); Chloride 108 mmol/L (98-107); Estimated CRCL calculation 51 ml/min; Estimated Glomerular Filt Rate > 60; Glucose 101 mg/dL (65-110); Magnesium 2.2 mg/dL (1.6-2.3); Potassium 3.8 mmol/L (3.4-5.0); Sodium 139 mmol/L (137-145)
[2022-07-30] MEDS: levETIRAcetam 500 MG TABLET BY MOUTH (08:27)
[2022-07-30] MEDS: TAMSULOSIN HCL 0.4 MG CAPSULE PO (08:27)
[2022-07-30] MEDS: APIXABAN 5 MG TABLET PO ×2 (08:28→17:05)
[2022-07-30] MEDS: OXYBUTYNIN CHLORIDE 5 MG TABLET PO ×2 (08:28→17:04)
[2022-07-30] MEDS: DONEPEZIL HCL 10 MG TABLET PO (08:28)
[2022-07-30] MEDS: GABAPENTIN 100 MG CAPSULE 200 MG PO ×2 (08:28→17:04)
[2022-07-30] MEDS: CALCIUM CARBONATE (OSCAL) 500 MG TABLET PO (08:28)
[2022-07-30] MEDS: DUTASTERIDE 0.5 MG CAPSULE PO (08:28)
[2022-07-30] MEDS: MULTIVITAMINS /C LUTEIN (CENTRUM SILVER) TABLET *BKC 1 TAB PO (08:28)
--- NOTE | 2022-07-30 11:22 | PM.PNPUL ---
Progress Note: A&P Assessment and Plan (1) Acute respiratory failure with hypoxia: Code(s): J96.01 - Acute respiratory failure with hypoxia Status: Acute Assessment and Plan: Respiratory status stable and essentially unchanged over the last 24 hours. The patient remaining on room air but chest x-ray done today still showed left lung atelectasis. White cell count trending down on current antibiotic regimen. Remdesivir and IV dexamethasone were discontinued. Plan; continue with current regimen for now; add incentive spirometry. Will repeat chest x-ray in couple of days. if left lung atelectasis persists will proceed with bronchoscopy. (2) COVID-19: Code(s): U07.1 - COVID-19 Status: Acute (3) Factor V Leiden: Code(s): D68.51 - Activated protein C resistance Status: Chronic (4) Dementia: Code(s): F03.90 - Unspecified dementia, unspecified severity, without behavioral disturbance, psychotic disturbance, mood disturbance, and anxiety Status: Chronic Subjective Date/time seen: 07/30/22 11:22 patient has no new respiratory symptoms. Remains on room air. Review of Systems Review of Systems: ROS unobtainable: Yes unobtainable due to medical condition Exam Narrative: GENERAL APPEARANCE: Well developed, well nourished, Awake cooperative and in no respiratory distress while breathing ambient air. SKIN: Inspection of the skin reveals no rashes, ulcerations or petechiae. HEENT: Sclerae anicteric and conjunctivae pink and moist. Extraocular movements were intact and pupils were equal, round. Dry oral mucosa CHEST: Normal AP diameter and normal contour without any kyphoscoliosis. LUNGS: decreased breath sounds at left base posteriorly, no wheezing CARDIAC: There was a regular rate and rhythm without any murmurs. LYMPH NODES: No lymphadenopathy was appreciated in the neck. EXTREMITIES: No cyanosis, clubbing or edema. NEUROLOGIC: awake cooperative moving or extremities. Objective Data Vital Signs Vital Signs: Vital Signs - 24 hr 07/29/22 12:00 07/29/22 12:00 07/29/22 15:27 Temperature 36.1 C L Pulse Rate 108 H 76 Respiratory Rate 18 Blood Pressure 136/80 Pulse Oximetry 94 Oxygen Delivery Room Air 07/29/22 15:48 07/29/22 16:00 07/29/22 13:59 Temperature 36.5 C Pulse Rate 85 92 84 Respiratory Rate 20 20 Blood Pressure 132/69 Pulse Oximetry 94 Oxygen Delivery 07/29/22 14:08 07/29/22 14:08 07/29/22 20:00 Temperature Pulse Rate 86 92 Respiratory Rate 18 20 Blood Pressure Pulse Oximetry 94 94 Oxygen Delivery Room Air Room Air 07/29/22 20:00 07/29/22 21:33 07/29/22 21:33 Temperature 36.5 C Pulse Rate 78 83 83 Respiratory Rate 18 16 18 Blood Pressure 119/63 Pulse Oximetry 95 93 Oxygen Delivery Room Air 07/30/22 00:00 07/30/22 02:05 07/30/22 02:15 Temperature 36.9 C Pulse Rate 91 85 87 Respiratory Rate 18 18 16 Blood Pressure 122/66 Pulse Oximetry 93 Oxygen Delivery 07/29/22 20:00 07/30/22 00:00 07/30/22 04:00 Temperature Pulse Rate 98 87 66 Respiratory Rate Blood Pressure Pulse Oximetry Oxygen Delivery 07/30/22 04:00 07/30/22 09:14 07/30/22 08:00 Temperature 36.4 C L Pulse Rate 50 L 87 65 Respiratory Rate 20 Blood Pressure 131/86 Pulse Oximetry 90 94 Oxygen Delivery Room Air 07/30/22 08:00 Temperature Pulse Rate Respiratory Rate Blood Pressure Pulse Oximetry 93 Oxygen Delivery Room Air Intake/Output Intake/Output: Intake & Output 07/27/22 07/28/22 07/29/22 07/30/22 23:59 23:59 23:59 23:59 Intake Total 3490 2720 3052 300 Output Total 5030 687 9836 600 Balance 2440 2045 2 -300 Meds/Results Medications: Active Medications Generic Name Dose Route Start Last Admin Trade Name Freq PRN Reason Stop Dose Admin Albuterol 5 mg 07/27/22 08:00 07/30/22 09:13 Albuterol Sulfate Neb 2.5 Mg/3 Ml Inh INHALATION 5 mg Q
--- NOTE | 2022-07-30 17:12 | PM.IMPN ---
Progress Note: A&P Assessment and Plan (1) Acute respiratory failure with hypoxia: Code(s): J96.01 - Acute respiratory failure with hypoxia Status: Acute Assessment and Plan: 07/30/2022 interval history: upon arrival?patient was hypoxic with COVID and was requiring high flow N/C, was started on dexamethasone 12/10 and remdesivir /, today patient is feeling much better and stats doing better, patient is on room air, patient was seen by pulmonology and stopped remdesivir and dexamethasone, will continue to monitor,? may discharge patient home tomorrow, will have PT OT evaluate the patient and further recommendation to follow. patient is a wheelchair-bound (2) COVID-19: Code(s): U07.1 - COVID-19 Status: Acute (3) Aspiration pneumonia: Code(s): J69.0 - Pneumonitis due to inhalation of food and vomit Status: Acute (4) Bronchial obstruction: Code(s): J98.09 - Other diseases of bronchus, not elsewhere classified Status: Acute (5) Chronic renal failure, stage 3a: Code(s): N18.31 - Chronic kidney disease, stage 3a Status: Chronic (6) Factor V Leiden: Code(s): D68.51 - Activated protein C resistance Status: Chronic (7) BPH (benign prostatic hyperplasia): Code(s): N40.0 - Benign prostatic hyperplasia without lower urinary tract symptoms Status: Acute Plan Severe acute hypoxic respiratory failure likely due to COVID and concomitant compression of left mainstem bronchus with associated postobstructive versus aspiration pneumonia. On exam patient has thick yellow mucus in his posterior oropharynx in coding is soft palate, patient has a weak cough and will not likely built to provide sputum specimen. He has received Decadron and Remdesivir for COVID. Will also place patient on broad-spectrum antibiotic coverage with cefepime and vancomycin. Pulmonology has been consulted for recommendations see the patient may benefit from bronchoscopy to evaluate bronchus compression. Will start the patient on scheduled nebulizer treatments with albuterol and Atrovent. CT and states possible enterocolitis but the patient is sound having any GI symptoms. 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 Patient has BPH. Will resume home prostate medications when med arcus available for review. Patient would benefit from swallow eval given possibility of aspiration. Will leave NPO except for meds until after speech therapy evaluate the patient. Patient was seen and examined in the ER. Patient's condition is critical overall prognosis is poor patient has borderline low blood pressures. Will provide 1 more L fluid bolus. Will continue broad-spectrum antibiotic coverage. Blood cultures and urine cultures pending. Given the patient's history of seizure disorder will switch Keppra to IV while he is seriously ill. As I am not convinced the patient swallowed pills without increased aspiration. Subjective Date/time seen: 07/30/22 17:12 07/30/2022 interval history: upon arrival?patient was hypoxic with COVID and was requiring high flow N/C, was started on dexamethasone 12/10 and remdesivir 12/05, today patient is feeling much better and stats doing better, patient is on room air, patient was seen by pulmonology and stopped remdesivir and dexamethasone, will continue to monitor,? may discharge patient home tomorrow, will have PT OT evaluate the patient and further recommendation to follow. patient is a wheelchair-bound Exam Narrative: elderly frail Patient is comfortable, NAD HEENT: eyes are clear and none icteric LUNGS: normal respiratory effort ABD: not distended Lower extremities: no edema SKIN: nonjaundiced Neuro: grossly intact. Objective Data Vital Signs Vital Signs: Vital Signs - 24 hr 07/29/22 20:00 07/29/22 20:00 07/29/22 21:33 Temperature 97.7 F Pulse Rate 9
[2022-07-30] MEDS: levETIRAcetam 500 MG TABLET 1000 MG BY MOUTH (20:47)
--- NOTE | 2022-07-30 23:05 | PCRCNOTE ---
Window of time for administration has passed. See next scheduled administration.
[2022-07-30 23:55] LABS: Vancomycin Trough 17.8 ug/mL (10.0-20.0)
[2022-07-31] VITALS (13 sets, daily range): BP systolic 94–129; BP diastolic 57–72; PULSE 79–104; RESP 14–20; TEMP 36–36.6; O2SAT 90–91
[2022-07-31] MEDS: IPRATROPIUM BR 0.02% INH SOLN 0.5 MG/2.5 ML VIAL INHALATION ×2 (04:28→12:55)
[2022-07-31] MEDS: ALBUTEROL SULFATE NEB 2.5 MG/3 ML INH 5 MG INHALATION ×2 (04:28→12:55)
[2022-07-31 06:11] LABS: Hematocrit 40.2 % (42.0-52.0); Hemoglobin 13.4 g/dL (14.0-18.0); Mean Corpuscular HGB Conc 33.3 g/dl (32-36); Mean Corpuscular Volume 89.9 fl (80-100); Mean Platelet Volume 9.6 fl (7.4-10.4); Platelet Count Result 346 k/mm3 (150-375); Red Blood Count 4.47 M/mm3 (4.6-6.20); Red Cell Distribution Width 12.6 % (11.5-14.5); White Blood Count 20.5 K/mm3 (4.5-10.0)
[2022-07-31 06:21] LABS: INR 1.7; Prothrombin Time 19.6 Seconds (11.1-14.7)
[2022-07-31 06:23] LABS: Alanine Aminotransferase 41 U/L (6-50); Albumin Level 2.8 g/dL (3.5-5.1); Alkaline Phosphatase 84 U/L (38-126); Anion Gap 3 mmol/L (8-16); Aspartate Amino Transferase 43 U/L (17-59); Bilirubin,Total 0.5 mg/dL (0.2-1.3); Blood Urea Nitrogen 17 mg/dL (9-20); Calcium 8.2 mg/dL (8.4-10.2); Carbon Dioxide 24 mmol/L (22-30); Chloride 104 mmol/L (98-107); Estimated CRCL calculation 45 ml/min; Estimated Glomerular Filt Rate > 60; Glucose 130 mg/dL (65-110); Magnesium 2.1 mg/dL (1.6-2.3); Sodium 131 mmol/L (137-145)
[2022-07-31] MEDS: GABAPENTIN 100 MG CAPSULE 200 MG PO ×2 (08:26→16:16)
[2022-07-31] MEDS: TAMSULOSIN HCL 0.4 MG CAPSULE PO (08:26)
[2022-07-31] MEDS: DONEPEZIL HCL 10 MG TABLET PO (08:26)
[2022-07-31] MEDS: OXYBUTYNIN CHLORIDE 5 MG TABLET PO ×2 (08:26→16:16)
[2022-07-31] MEDS: CALCIUM CARBONATE (OSCAL) 500 MG TABLET PO (08:26)
[2022-07-31] MEDS: APIXABAN 5 MG TABLET PO ×2 (08:26→16:16)
[2022-07-31] MEDS: levETIRAcetam 500 MG TABLET BY MOUTH (08:26)
[2022-07-31] MEDS: DUTASTERIDE 0.5 MG CAPSULE PO (08:26)
[2022-07-31] MEDS: MULTIVITAMINS /C LUTEIN (CENTRUM SILVER) TABLET *BKC 1 TAB PO (08:26)
[2022-07-31 09:52] LABS: SARS-CoV-2 RNA PCR Positive
--- NOTE | 2022-07-31 11:00 | PCRCNOTE ---
Window of time for administration has passed. See next scheduled administration.
--- NOTE | 2022-07-31 17:06 | PM.PNPUL ---
Progress Note: A&P Assessment and Plan (1) Acute respiratory failure with hypoxia: Code(s): J96.01 - Acute respiratory failure with hypoxia Status: Acute Assessment and Plan: Respiratory status stable and essentially unchanged over the last 24 hours. The patient remaining on room air but chest x-ray done today still showed left lung atelectasis. WBC over 20 K today while patient is off antibiotics. Need to treat Klebsiella ESBL in the urine at this point as this may be the cause of leukocytosis. patient is still PCR positive for COVID-19 infection. Regarding persistent left lung atelectasis, he will need bronchoscopy with possible bronchial biopsy of left mainstem occluding mass once he is PCR negative for COVID-19 infection and off the direct anticoagulant for at least 24 hours. Case was discussed with Dr. Hand the hospitalist regarding positive urine culture for Klebsiella ESBL and the plan for further workup for left lung atelectasis. continue with incentive spirometry. (2) COVID-19: Code(s): U07.1 - COVID-19 Status: Acute (3) Factor V Leiden: Code(s): D68.51 - Activated protein C resistance Status: Chronic (4) Dementia: Code(s): F03.90 - Unspecified dementia, unspecified severity, without behavioral disturbance, psychotic disturbance, mood disturbance, and anxiety Status: Chronic Subjective Date/time seen: 07/31/22 17:06 patient has no new respiratory symptoms. He remains on room air. White cell count over 20,000 again while patient is off antibiotics. underwent PCR test for COVID which was again positive. Chest x-ray also done today showed no significant change. Patient growing Klebsiella ESBL from urine. Review of Systems Review of Systems: ROS unobtainable: Yes unobtainable due to medical condition Exam Narrative: GENERAL APPEARANCE: Well developed, well nourished, Awake cooperative and in no respiratory distress while breathing ambient air. SKIN: Inspection of the skin reveals no rashes, ulcerations or petechiae. HEENT: Sclerae anicteric and conjunctivae pink and moist. Extraocular movements were intact and pupils were equal, round. Dry oral mucosa CHEST: Normal AP diameter and normal contour without any kyphoscoliosis. LUNGS: decreased breath sounds at left base posteriorly, no wheezing CARDIAC: There was a regular rate and rhythm without any murmurs. LYMPH NODES: No lymphadenopathy was appreciated in the neck. EXTREMITIES: No cyanosis, clubbing or edema. NEUROLOGIC: awake cooperative moving or extremities. Objective Data Vital Signs Vital Signs: Vital Signs - 24 hr 07/30/22 20:00 07/30/22 20:47 07/30/22 23:39 Temperature 36.4 C L 36.6 C Pulse Rate 95 100 Respiratory Rate 18 20 Blood Pressure 140/94 H 138/74 Pulse Oximetry 92 90 Oxygen Delivery Room Air 07/31/22 00:00 07/30/22 20:00 07/31/22 04:00 Temperature Pulse Rate 98 80 81 Respiratory Rate Blood Pressure Pulse Oximetry Oxygen Delivery 07/31/22 04:29 07/31/22 04:43 07/31/22 04:00 Temperature 36.6 C Pulse Rate 80 79 104 H Respiratory Rate 16 16 20 Blood Pressure 94/58 L Pulse Oximetry 91 Oxygen Delivery 07/31/22 08:55 07/31/22 08:55 07/31/22 10:32 Temperature 36.3 C L Pulse Rate 82 79 86 Respiratory Rate 16 18 Blood Pressure 107/61 Pulse Oximetry 91 91 Oxygen Delivery Room Air 07/31/22 12:00 07/31/22 12:45 07/31/22 12:45 Temperature Pulse Rate 101 H 89 89 Respiratory Rate 16 Blood Pressure Pulse Oximetry 91 Oxygen Delivery Room Air 07/31/22 14:25 07/31/22 16:00 Temperature 36.1 C L Pulse Rate 92 92 Respiratory Rate 18 Blood Pressure 102/65 Pulse Oximetry 90 Oxygen Delivery Intake/Output Intake/Output: Intake & Output 07/28/22 07/29/22 07/30/22 07/31/22 23:59 23:59 23:59 23:59 Intake Total 2720 3052 1250 550 Output Total 675 3050 2800 900 Balance 2045 2 -1550 -35
--- NOTE | 2022-07-31 17:08 | PM.IMPN ---
Progress Note: A&P Assessment and Plan (1) Acute respiratory failure with hypoxia: Code(s): J96.01 - Acute respiratory failure with hypoxia Status: Acute Assessment and Plan: 07/31/2022 interval history: upon arrival?patient was hypoxic with COVID and was requiring high flow N/C, was started on dexamethasone 12/10 and remdesivir 12/05, on 07/30 patient was feeling much better and stats doing better, patient is on room air, patient was seen by pulmonology and stopped remdesivir and dexamethasone, will continue to monitor, repeat chest x-ray shows persistent chronic left basilar infiltrate, patient urinary is positive for Klebsiella pneumonia ESBL, patient being treated Cefepime 11/06, patient is seen by elevator operator freight and further recommendation to follow, will have PT OT evaluate the patient and further recommendation to follow. patient is a wheelchair-bound (2) COVID-19: Code(s): U07.1 - COVID-19 Status: Acute (3) Aspiration pneumonia: Code(s): J69.0 - Pneumonitis due to inhalation of food and vomit Status: Acute (4) Bronchial obstruction: Code(s): J98.09 - Other diseases of bronchus, not elsewhere classified Status: Acute (5) Chronic renal failure, stage 3a: Code(s): N18.31 - Chronic kidney disease, stage 3a Status: Chronic (6) Factor V Leiden: Code(s): D68.51 - Activated protein C resistance Status: Chronic (7) BPH (benign prostatic hyperplasia): Code(s): N40.0 - Benign prostatic hyperplasia without lower urinary tract symptoms Status: Acute Plan Severe acute hypoxic respiratory failure likely due to COVID and concomitant compression of left mainstem bronchus with associated postobstructive versus aspiration pneumonia. On exam patient has thick yellow mucus in his posterior oropharynx in coding is soft palate, patient has a weak cough and will not likely built to provide sputum specimen. He has received Decadron and Remdesivir for COVID. Will also place patient on broad-spectrum antibiotic coverage with cefepime and vancomycin. Pulmonology has been consulted for recommendations see the patient may benefit from bronchoscopy to evaluate bronchus compression. Will start the patient on scheduled nebulizer treatments with albuterol and Atrovent. CT and states possible enterocolitis but the patient is sound having any GI symptoms. 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 Patient has BPH. Will resume home prostate medications when med arcus available for review. Patient would benefit from swallow eval given possibility of aspiration. Will leave NPO except for meds until after speech therapy evaluate the patient. Patient was seen and examined in the ER. Patient's condition is critical overall prognosis is poor patient has borderline low blood pressures. Will provide 1 more L fluid bolus. Will continue broad-spectrum antibiotic coverage. Blood cultures and urine cultures pending. Given the patient's history of seizure disorder will switch Keppra to IV while he is seriously ill. As I am not convinced the patient swallowed pills without increased aspiration. Subjective Date/time seen: 07/31/22 17:08 07/31/2022 interval history: upon arrival?patient was hypoxic with COVID and was requiring high flow N/C, was started on dexamethasone 4/10 and remdesivir 4/5, on 07/30 patient was feeling much better and stats doing better, patient is on room air, patient was seen by pulmonology and stopped remdesivir and dexamethasone, will continue to monitor, repeat chest x-ray shows persistent chronic left basilar infiltrate, patient urinary is positive for Klebsiella pneumonia ESBL, patient being treated Cefepime 11/06, patient is seen by elevator operator freight and further recommendation to follow, will have PT OT evaluate the patient and further recommendation to follow. patient is
[2022-07-31] MEDS: levETIRAcetam 500 MG TABLET 1000 MG BY MOUTH (21:45)
[2022-08-01] VITALS (14 sets, daily range): BP systolic 98–117; BP diastolic 57–83; PULSE 73–88; RESP 13–20; TEMP 36.2–36.7; O2SAT 92–97
--- NOTE | 2022-08-01 00:48 | PCRCNOTE ---
Window of time for administration has passed. See next scheduled administration.
[2022-08-01] MEDS: ALBUTEROL SULFATE NEB 2.5 MG/3 ML INH 5 MG INHALATION ×2 (02:52→14:06)
[2022-08-01] MEDS: IPRATROPIUM BR 0.02% INH SOLN 0.5 MG/2.5 ML VIAL INHALATION ×2 (02:53→14:07)
[2022-08-01 06:31] LABS: Hematocrit 42.6 % (42.0-52.0); Hemoglobin 14.1 g/dL (14.0-18.0); Mean Corpuscular HGB Conc 33.1 g/dl (32-36); Mean Corpuscular Hemoglobin 29.9 pg (26-34); Mean Corpuscular Volume 90.4 fl (80-100); Mean Platelet Volume 9.7 fl (7.4-10.4); Platelet Count Result 378 k/mm3 (150-375); Red Blood Count 4.71 M/mm3 (4.6-6.20); Red Cell Distribution Width 12.8 % (11.5-14.5); White Blood Count 14.3 K/mm3 (4.5-10.0)
[2022-08-01 06:35] LABS: Alanine Aminotransferase 43 U/L (6-50); Alkaline Phosphatase 103 U/L (38-126); Anion Gap 9 mmol/L (8-16); Aspartate Amino Transferase 42 U/L (17-59); Bilirubin,Total 0.5 mg/dL (0.2-1.3); Blood Urea Nitrogen 18 mg/dL (9-20); Calcium 8.6 mg/dL (8.4-10.2); Carbon Dioxide 24 mmol/L (22-30); Chloride 102 mmol/L (98-107); Estimated CRCL calculation 38 ml/min; Estimated Glomerular Filt Rate > 60; Glucose 97 mg/dL (65-110); Magnesium 2.2 mg/dL (1.6-2.3); Potassium 3.5 mmol/L (3.4-5.0); Sodium 135 mmol/L (137-145)
[2022-08-01] MEDS: GABAPENTIN 100 MG CAPSULE 200 MG PO ×2 (09:04→16:55)
[2022-08-01] MEDS: OXYBUTYNIN CHLORIDE 5 MG TABLET PO ×2 (09:04→16:55)
[2022-08-01] MEDS: MULTIVITAMINS /C LUTEIN (CENTRUM SILVER) TABLET *BKC 1 TAB PO (09:04)
[2022-08-01] MEDS: TAMSULOSIN HCL 0.4 MG CAPSULE PO (09:04)
[2022-08-01] MEDS: APIXABAN 5 MG TABLET PO ×2 (09:05→16:55)
[2022-08-01] MEDS: CALCIUM CARBONATE (OSCAL) 500 MG TABLET PO (09:05)
[2022-08-01] MEDS: DONEPEZIL HCL 10 MG TABLET PO (09:05)
[2022-08-01] MEDS: levETIRAcetam 500 MG TABLET BY MOUTH (09:05)
[2022-08-01] MEDS: DUTASTERIDE 0.5 MG CAPSULE PO (09:05)
--- NOTE | 2022-08-01 09:20 | PM.IMPN ---
Progress Note: A&P Assessment and Plan (1) Acute respiratory failure with hypoxia: Code(s): J96.01 - Acute respiratory failure with hypoxia Status: Acute Assessment and Plan: patient presented with hypoxia. Tested positive for COVID and was requiring high flow N/C, treated with dexamethasone and remdesivir. Finished the course of remdesivir oxygen has been tapered off and currently on room air. patient is on room air, patient was seen by pulmonology and stopped remdesivir and dexamethasone, will continue to monitor, repeat chest x-ray shows persistent chronic left basilar infiltrate, patient urinary is positive for Klebsiella pneumonia ESBL, patient being treated Cefepime 11/06, patient is seen by postbed stitcher and further recommendation to follow, will have PT OT evaluate the patient and further recommendation to follow. 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 Bronchoscopic correlation and biopsy should be considered Left hilar and subcarinal lymphadenopathy No evidence of pulmonary embolism Ascending aortic ectasia (4.3 cm diameter) Bronchoscopy will be planned once COVID is negative and off apixaban for 24 hours purple (5) Chronic renal failure, stage 3a: Code(s): N18.31 - Chronic kidney disease, stage 3a Status: Chronic (6) Factor V Leiden: Code(s): D68.51 - Activated protein C resistance Status: Chronic (7) BPH (benign prostatic hyperplasia): Code(s): N40.0 - Benign prostatic hyperplasia without lower urinary tract symptoms Status: Acute (8) Urinary tract infection: Code(s): N39.0 - Urinary tract infection, site not specified Status: Acute Assessment and Plan: Klebsiella ESBL On cefepime IV Plan # Severe acute hypoxic respiratory failure likely due to COVID and concomitant compression of left mainstem bronchus with associated postobstructive versus aspiration pneumonia. On exam patient has thick yellow mucus in his posterior oropharynx in coding is soft palate, patient has a weak cough and will not likely built to provide sputum specimen. He has received Decadron and Remdesivir for COVID. also placed patient on broad-spectrum antibiotic coverage with cefepime and vancomycin. Pulmonology has been consulted for recommendations see the patient may benefit from bronchoscopy to evaluate bronchus compression. patient on scheduled nebulizer treatments with albuterol and Atrovent. #CT and states possible enterocolitis but the patient does not sound having any GI symptoms. 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 home medication # seizure disorder Natalya Subjective Date/time seen: 08/01/22 09:20 Interval history: patient presented with hypoxia requiring high-flow oxygen via nasal cannula. Test positive for COVID. He was started on dexamethasone and remdesivir, finish the tested. Off oxygen. Chest x-ray showed left lung atelectasis with leukocytosis while off antibiotics. Urine culture grew Klebsiella ESBL. Pulmonary on board planning for bronchoscopy with possible bronchial biopsy of left mainstem occluding mass once PCR is negative. Patient is wheelchair-bound. Feels well. Denies any shortness of breath. Denies any cough. Patient poor historian. Has underlying dementia. Review of Systems Review of Systems: All systems reviewed & are unremarkable except as noted in HPI and below Exam Narrative:
--- NOTE | 2022-08-01 10:09 | PCNFU ---
Nutrition Follow-Up Complete: Inadequate oral intake related to NPO status, acute illness as evidenced by diet order. Goal:Adequate PO intake at least 75% meals when able to advance diet - Goal being met. Continue same goal Pt current nutrition is Regular diet, level 6 soft and bite sized. 50-90% intakes. Ate breakfast well. Ensure compact BID. Nutrition recommendation: Continue current care plan and monitoring. Agree with diet order. Last recorded weight is 59.8 kg. Bowel Motility: No BMs charted Labs Reviewed: Alb 3.0, Na 135 Meds Noted: Cefepime, dexamethasone, remdesivir, vancomycin Skin: Skin tear to scalp Additional Notes: Remains on covid isolation. Communication with RN and tech re: intakes and feeding. Monitoring diet advancement, intakes, weights, plan of care. Follow up in 7 days
[2022-08-01] MEDS: levETIRAcetam 500 MG TABLET 1000 MG BY MOUTH (21:02)
[2022-08-02] VITALS (12 sets, daily range): BP systolic 101–116; BP diastolic 66–77; PULSE 77–93; RESP 14–20; TEMP 36.4–36.8; O2SAT 90–95
[2022-08-02 06:31] LABS: Hematocrit 42.5 % (42.0-52.0); Mean Corpuscular HGB Conc 32.9 g/dl (32-36); Mean Corpuscular Hemoglobin 29.7 pg (26-34); Mean Platelet Volume 9.5 fl (7.4-10.4); Platelet Count Result 380 k/mm3 (150-375); Red Blood Count 4.72 M/mm3 (4.6-6.20); Red Cell Distribution Width 12.8 % (11.5-14.5); White Blood Count 14.2 K/mm3 (4.5-10.0)
[2022-08-02 06:45] LABS: Alanine Aminotransferase 41 U/L (6-50); Albumin Level 3.2 g/dL (3.5-5.1); Alkaline Phosphatase 99 U/L (38-126); Anion Gap 8 mmol/L (8-16); Aspartate Amino Transferase 33 U/L (17-59); Bilirubin,Total 0.6 mg/dL (0.2-1.3); Blood Urea Nitrogen 18 mg/dL (9-20); Calcium 8.7 mg/dL (8.4-10.2); Carbon Dioxide 24 mmol/L (22-30); Chloride 104 mmol/L (98-107); Estimated CRCL calculation 41 ml/min; Estimated Glomerular Filt Rate > 60; Glucose 105 mg/dL (65-110); Magnesium 2.3 mg/dL (1.6-2.3); Potassium 3.5 mmol/L (3.4-5.0); Sodium 136 mmol/L (137-145)
[2022-08-02] MEDS: GABAPENTIN 100 MG CAPSULE 200 MG PO ×2 (09:09→16:47)
[2022-08-02] MEDS: TAMSULOSIN HCL 0.4 MG CAPSULE PO (09:10)
[2022-08-02] MEDS: OXYBUTYNIN CHLORIDE 5 MG TABLET PO ×2 (09:10→16:47)
[2022-08-02] MEDS: DUTASTERIDE 0.5 MG CAPSULE PO (09:10)
[2022-08-02] MEDS: levETIRAcetam 500 MG TABLET BY MOUTH (09:10)
[2022-08-02] MEDS: DONEPEZIL HCL 10 MG TABLET PO (09:10)
[2022-08-02] MEDS: APIXABAN 5 MG TABLET PO ×2 (09:10→16:47)
[2022-08-02] MEDS: CALCIUM CARBONATE (OSCAL) 500 MG TABLET PO (09:10)
[2022-08-02] MEDS: MULTIVITAMINS /C LUTEIN (CENTRUM SILVER) TABLET *BKC 1 TAB PO (09:10)
[2022-08-02] MEDS: ALBUTEROL SULFATE NEB 2.5 MG/3 ML INH 5 MG INHALATION ×3 (09:45→21:41)
[2022-08-02] MEDS: IPRATROPIUM BR 0.02% INH SOLN 0.5 MG/2.5 ML VIAL INHALATION ×3 (09:45→21:41)
--- NOTE | 2022-08-02 15:52 | PM.IMPN ---
Progress Note: A&P Assessment and Plan (1) Acute respiratory failure with hypoxia: Code(s): J96.01 - Acute respiratory failure with hypoxia Status: Acute Assessment and Plan: patient presented with hypoxia. Tested positive for COVID and was requiring high flow N/C, treated with dexamethasone and remdesivir. Finished the course of remdesivir oxygen has been tapered off and currently on room air. patient is on room air, patient was seen by pulmonology and stopped remdesivir and dexamethasone, repeat chest x-ray shows persistent chronic left basilar infiltrate, patient urinary is positive for Klebsiella pneumonia ESBL, patient being treated Cefepime patient is seen by phlebotomy specialist Discussed with pulmonary 08/02/2022: Plans to do bronchoscopy early next week if COVID test is negative (2) COVID-19: Code(s): U07.1 - COVID-19 Status: Acute (3) Aspiration pneumonia: Code(s): J69.0 - Pneumonitis due to inhalation of food and vomit Status: Acute (4) Bronchial obstruction: Code(s): J98.09 - Other diseases of bronchus, not elsewhere classified Status: Acute Assessment and Plan: CTA on admission showed 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 Bronchoscopic correlation and biopsy should be considered which is tentatively planned for Saturday Left hilar and subcarinal lymphadenopathy No evidence of pulmonary embolism Ascending aortic ectasia (4.3 cm diameter) Bronchoscopy will be planned once COVID is negative and off apixaban for 24 hours period (5) Chronic renal failure, stage 3a: Code(s): N18.31 - Chronic kidney disease, stage 3a Status: Chronic (6) Factor V Leiden: Code(s): D68.51 - Activated protein C resistance Status: Chronic (7) BPH (benign prostatic hyperplasia): Code(s): N40.0 - Benign prostatic hyperplasia without lower urinary tract symptoms Status: Acute (8) Urinary tract infection: Code(s): N39.0 - Urinary tract infection, site not specified Status: Acute Assessment and Plan: Klebsiella ESBL On cefepime IV Plan # Severe acute hypoxic respiratory failure likely due to COVID and concomitant compression of left mainstem bronchus with associated postobstructive versus aspiration pneumonia. On exam patient has thick yellow mucus in his posterior oropharynx in coding is soft palate, patient has a weak cough and will not likely built to provide sputum specimen. He has received Decadron and Remdesivir for COVID. also placed patient on broad-spectrum antibiotic coverage with cefepime and vancomycin. Pulmonology has been consulted for recommendations see the patient may benefit from bronchoscopy to evaluate bronchus compression. patient on scheduled nebulizer treatments with albuterol and Atrovent. #CT and states possible enterocolitis but the patient does not sound having any GI symptoms. 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 home medication # seizure disorder Krishnappra Subjective Date/time seen: 08/02/22 15:52 Interval history: patient presented with hypoxia requiring high-flow oxygen via nasal cannula. Test positive for COVID. He was started on dexamethasone and remdesivir, finish the tested. Off oxygen. Chest x-ray showed left lung atelectasis with leukocytosis while off antibiotics. Urine culture grew Klebsiella ESBL. Pulmonary on board planning for bronchoscopy with possible bronchial biopsy of left mainstem occluding mass once PCR is negative. Patient is wheelchair-bound. Feels well. Denies any shortness of breath. Denies any cough. Patient poor historian. Has underlying dementia. 08/02/2022: No overnight events. Patient reports his breathing has improved. Denies any chest pain. No urinary complaints. Has a Bae catheter in place.
[2022-08-02] MEDS: levETIRAcetam 500 MG TABLET 1000 MG BY MOUTH (22:06)
[2022-08-03] VITALS (12 sets, daily range): BP systolic 93–128; BP diastolic 59–85; PULSE 80–107; RESP 14–20; TEMP 36.1–36.7; O2SAT 92–100
[2022-08-03] MEDS: IPRATROPIUM BR 0.02% INH SOLN 0.5 MG/2.5 ML VIAL INHALATION ×3 (02:38→14:18)
[2022-08-03] MEDS: ALBUTEROL SULFATE NEB 2.5 MG/3 ML INH 5 MG INHALATION ×3 (02:38→14:18)
[2022-08-03 07:01] LABS: Hematocrit 40.9 % (42.0-52.0); Hemoglobin 13.4 g/dL (14.0-18.0); Mean Corpuscular HGB Conc 32.8 g/dl (32-36); Mean Corpuscular Hemoglobin 29.8 pg (26-34); Mean Corpuscular Volume 90.9 fl (80-100); Mean Platelet Volume 9.5 fl (7.4-10.4); Platelet Count Result 359 k/mm3 (150-375); White Blood Count 7.7 K/mm3 (4.5-10.0)
[2022-08-03 07:12] LABS: Alanine Aminotransferase 34 U/L (6-50); Alkaline Phosphatase 83 U/L (38-126); Anion Gap 5 mmol/L (8-16); Aspartate Amino Transferase 27 U/L (17-59); Bilirubin,Total 0.4 mg/dL (0.2-1.3); Blood Urea Nitrogen 17 mg/dL (9-20); Calcium 8.8 mg/dL (8.4-10.2); Carbon Dioxide 27 mmol/L (22-30); Chloride 103 mmol/L (98-107); Estimated CRCL calculation 42 ml/min; Estimated Glomerular Filt Rate > 60; Glucose 121 mg/dL (65-110); Magnesium 2.4 mg/dL (1.6-2.3); Potassium 3.7 mmol/L (3.4-5.0); Sodium 135 mmol/L (137-145)
[2022-08-03] MEDS: APIXABAN 5 MG TABLET PO ×2 (09:34→17:20)
[2022-08-03] MEDS: CALCIUM CARBONATE (OSCAL) 500 MG TABLET PO (09:34)
[2022-08-03] MEDS: GABAPENTIN 100 MG CAPSULE 200 MG PO ×2 (09:34→17:21)
[2022-08-03] MEDS: DONEPEZIL HCL 10 MG TABLET PO (09:34)
[2022-08-03] MEDS: OXYBUTYNIN CHLORIDE 5 MG TABLET PO ×2 (09:34→17:21)
[2022-08-03] MEDS: levETIRAcetam 500 MG TABLET BY MOUTH (09:34)
[2022-08-03] MEDS: MULTIVITAMINS /C LUTEIN (CENTRUM SILVER) TABLET *BKC 1 TAB PO (09:34)
[2022-08-03] MEDS: DUTASTERIDE 0.5 MG CAPSULE PO (09:34)
[2022-08-03] MEDS: TAMSULOSIN HCL 0.4 MG CAPSULE PO (09:34)
--- NOTE | 2022-08-03 12:03 | PM.IMPN ---
Progress Note: A&P Assessment and Plan (1) Acute respiratory failure with hypoxia: Code(s): J96.01 - Acute respiratory failure with hypoxia Status: Acute Assessment and Plan: patient presented with hypoxia. Tested positive for COVID and was requiring high flow N/C, treated with dexamethasone and remdesivir. Finished the course of remdesivir oxygen has been tapered off and currently on room air. patient is on room air, patient was seen by pulmonology and stopped remdesivir and dexamethasone, repeat chest x-ray shows persistent chronic left basilar infiltrate, patient urinary is positive for Klebsiella pneumonia ESBL, patient being treated Cefepime patient is seen by tool sharpener Discussed with pulmonary 08/02/2022: Plans to do bronchoscopy early next week if COVID test is negative Will hold Eliquis from tomorrow morning, recheck covid in am. 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 Bronchoscopic correlation and biopsy should be considered which is tentatively planned for Saturday Left hilar and subcarinal lymphadenopathy No evidence of pulmonary embolism Ascending aortic ectasia (4.3 cm diameter) Bronchoscopy will be planned once COVID is negative and off apixaban for 24 hours period Discussed with pulmonary (5) Chronic renal failure, stage 3a: Code(s): N18.31 - Chronic kidney disease, stage 3a Status: Chronic (6) Factor V Leiden: Code(s): D68.51 - Activated protein C resistance Status: Chronic (7) BPH (benign prostatic hyperplasia): Code(s): N40.0 - Benign prostatic hyperplasia without lower urinary tract symptoms Status: Acute (8) Urinary tract infection: Code(s): N39.0 - Urinary tract infection, site not specified Status: Acute Assessment and Plan: Klebsiella ESBL On cefepime IV Plan # Severe acute hypoxic respiratory failure likely due to COVID and concomitant compression of left mainstem bronchus with associated postobstructive versus aspiration pneumonia. On exam patient has thick yellow mucus in his posterior oropharynx in coding is soft palate, patient has a weak cough and will not likely built to provide sputum specimen. He has received Decadron and Remdesivir for COVID. also placed patient on broad-spectrum antibiotic coverage with cefepime and vancomycin. Pulmonology has been consulted for recommendations see the patient may benefit from bronchoscopy to evaluate bronchus compression. patient on scheduled nebulizer treatments with albuterol and Atrovent. #CT and states possible enterocolitis but the patient does not sound having any GI symptoms. 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 home medication # seizure disorder Radhikara Subjective Date/time seen: 08/03/22 12:03 Interval history: patient presented with hypoxia requiring high-flow oxygen via nasal cannula. Test positive for COVID. He was started on dexamethasone and remdesivir, finish the tested. Off oxygen. Chest x-ray showed left lung atelectasis with leukocytosis while off antibiotics. Urine culture grew Klebsiella ESBL. Pulmonary on board planning for bronchoscopy with possible bronchial biopsy of left mainstem occluding mass once PCR is negative. Patient is wheelchair-bound. Feels well. Denies any shortness of breath. Denies any cough. Patient poor historian. Has underlying dementia. 08/02/2022: No overnight events. Patient reports his breathing has
--- NOTE | 2022-08-03 12:46 | PM.PNPUL ---
Progress Note: A&P Assessment and Plan (1) Acute respiratory failure with hypoxia: Code(s): J96.01 - Acute respiratory failure with hypoxia Status: Acute Assessment and Plan: Respiratory status stable and essentially unchanged over the last 24 hours. on physical exam auscultatory findings are essentially unchanged. Patient receiving antibiotics for UTI due to Klebsiella ESBL. WBC trending down. Plan: Will proceed with bronchoscopy early next week. Patient should be off the direct anticoagulant for approximately 2 days prior to procedure. Case was discussed with the hospitalist. will repeat chest x-ray in a.m.atelectasis. continue with incentive spirometry. (2) COVID-19: Code(s): U07.1 - COVID-19 Status: Acute (3) Factor V Leiden: Code(s): D68.51 - Activated protein C resistance Status: Chronic (4) Dementia: Code(s): F03.90 - Unspecified dementia, unspecified severity, without behavioral disturbance, psychotic disturbance, mood disturbance, and anxiety Status: Chronic Subjective Date/time seen: 08/03/22 12:46 No new respiratory symptoms. Afebrile. On cefepime for UTI Review of Systems Review of Systems: All systems reviewed & are unremarkable except as noted in HPI and below Exam Narrative: GENERAL APPEARANCE: Well developed, well nourished, Awake cooperative and in no respiratory distress. SKIN: Inspection of the skin reveals no rashes, ulcerations or petechiae. HEENT: Sclerae anicteric and conjunctivae pink and moist. Extraocular movements were intact and pupils were equal, round. Dry oral mucosa CHEST: Normal AP diameter and normal contour without any kyphoscoliosis. LUNGS: decreased breath sounds at left base posteriorly, no wheezing CARDIAC: There was a regular rate and rhythm without any murmurs. LYMPH NODES: No lymphadenopathy was appreciated in the neck. EXTREMITIES: No cyanosis, clubbing or edema. NEUROLOGIC: awake cooperative moving or extremities. Objective Data Vital Signs Vital Signs: Vital Signs - 24 hr 08/02/22 14:01 08/02/22 14:13 08/02/22 14:44 Temperature 36.4 C L Pulse Rate 90 84 88 Respiratory Rate 16 16 18 Blood Pressure 102/66 Pulse Oximetry 91 Oxygen Delivery 08/02/22 21:44 08/02/22 22:00 08/02/22 22:00 Temperature 36.8 C Pulse Rate 87 90 Respiratory Rate 16 14 Blood Pressure 101/77 Pulse Oximetry 95 Oxygen Delivery Room Air 08/03/22 02:00 08/03/22 02:39 08/02/22 21:58 Temperature 36.7 C Pulse Rate 107 H 82 90 Respiratory Rate 14 16 16 Blood Pressure 119/85 Pulse Oximetry 92 Oxygen Delivery 08/03/22 02:56 08/03/22 06:00 08/03/22 09:56 Temperature 36.6 C Pulse Rate 84 80 80 Respiratory Rate 16 14 20 Blood Pressure 93/59 L Pulse Oximetry 93 Oxygen Delivery 08/03/22 10:00 Temperature 36.4 C Pulse Rate 85 Respiratory Rate 18 Blood Pressure 128/64 Pulse Oximetry Oxygen Delivery Intake/Output Intake/Output: Intake & Output 07/31/22 08/01/22 08/02/22 08/03/22 23:59 23:59 23:59 23:59 Intake Total 850 910 820 470 Output Total 2400 850 920 Balance -1550 60 -100 470 Meds/Results Medications: Active Medications Generic Name Dose Route Start Last Admin Trade Name Baironq PRN Reason Stop Dose Admin Albuterol 5 mg 07/27/22 08:00 08/03/22 09:56 Albuterol Sulfate Neb 2.5 Mg/3 Ml Inh INHALATION 5 mg Q6HRT MONE Administration Apixaban 5 mg 07/27/22 17:00 08/03/22 09:34 Apixaban 5 Mg Tablet PO 5 mg BID MONE Administration Calcium Carbonate 500 mg 07/28/22 09:00 08/03/22 09:34 Calcium Carbonate (Oscal) 500 Mg Tablet PO 500 mg DAILY MONE Administration Calcium Carbonate 1,000 mg 07/27/22 17:00 08/03/22 09:35 Calcium/Vitamin D 500 Mg Tablet PO 1,000 mg BID MONE Administration Donepezil HCl 10 mg 07/28/22 09:00 08/03/22 09:34 Donepezil Hcl 10 Mg Tablet PO 10 mg DAILY MONE Administration Dut
[2022-08-03] MEDS: levETIRAcetam 500 MG TABLET 1000 MG BY MOUTH (21:10)
[2022-08-04] VITALS (13 sets, daily range): BP systolic 100–124; BP diastolic 58–79; PULSE 74–101; RESP 12–18; TEMP 35.8–36.7; O2SAT 91–96
[2022-08-04] MEDS: ALBUTEROL SULFATE NEB 2.5 MG/3 ML INH 5 MG INHALATION ×4 (03:15→20:43)
[2022-08-04] MEDS: IPRATROPIUM BR 0.02% INH SOLN 0.5 MG/2.5 ML VIAL INHALATION ×4 (03:15→20:43)
[2022-08-04 07:31] LABS: Hematocrit 43.8 % (42.0-52.0); Hemoglobin 14.3 g/dL (14.0-18.0); Mean Corpuscular HGB Conc 32.6 g/dl (32-36); Mean Corpuscular Hemoglobin 29.1 pg (26-34); Mean Platelet Volume 9.2 fl (7.4-10.4); Platelet Count Result 384 k/mm3 (150-375); Red Blood Count 4.92 M/mm3 (4.6-6.20); Red Cell Distribution Width 12.9 % (11.5-14.5); White Blood Count 11.6 K/mm3 (4.5-10.0)
[2022-08-04 07:33] LABS: Alanine Aminotransferase 37 U/L (6-50); Albumin Level 3.2 g/dL (3.5-5.1); Alkaline Phosphatase 95 U/L (38-126); Anion Gap 4 mmol/L (8-16); Aspartate Amino Transferase 37 U/L (17-59); Bilirubin,Total 0.4 mg/dL (0.2-1.3); Blood Urea Nitrogen 18 mg/dL (9-20); Calcium 9.2 mg/dL (8.4-10.2); Carbon Dioxide 32 mmol/L (22-30); Chloride 103 mmol/L (98-107); Estimated CRCL calculation 37 ml/min; Estimated Glomerular Filt Rate > 60; Glucose 109 mg/dL (65-110); Magnesium 2.3 mg/dL (1.6-2.3); Potassium 4.1 mmol/L (3.4-5.0); Sodium 139 mmol/L (137-145)
[2022-08-04] MEDS: DUTASTERIDE 0.5 MG CAPSULE PO (09:45)
[2022-08-04] MEDS: DONEPEZIL HCL 10 MG TABLET PO (09:45)
[2022-08-04] MEDS: OXYBUTYNIN CHLORIDE 5 MG TABLET PO ×2 (09:45→17:02)
[2022-08-04] MEDS: TAMSULOSIN HCL 0.4 MG CAPSULE PO (09:45)
[2022-08-04] MEDS: levETIRAcetam 500 MG TABLET BY MOUTH (09:45)
[2022-08-04] MEDS: GABAPENTIN 100 MG CAPSULE 200 MG PO ×2 (09:45→17:02)
[2022-08-04] MEDS: MULTIVITAMINS /C LUTEIN (CENTRUM SILVER) TABLET *BKC 1 TAB PO (09:45)
[2022-08-04] MEDS: CALCIUM CARBONATE (OSCAL) 500 MG TABLET PO (09:46)
--- NOTE | 2022-08-04 11:58 | PM.IMPN ---
Progress Note: A&P Assessment and Plan (1) Acute respiratory failure with hypoxia: Code(s): J96.01 - Acute respiratory failure with hypoxia Status: Acute Assessment and Plan: patient presented with hypoxia. Tested positive for COVID and was requiring high flow N/C, treated with dexamethasone and remdesivir. Finished the course of remdesivir oxygen has been tapered off and currently on room air. patient is on room air, patient was seen by pulmonology and stopped remdesivir and dexamethasone, repeat chest x-ray shows persistent chronic left basilar infiltrate, patient urinary is positive for Klebsiella pneumonia ESBL, patient being treated Cefepime patient is seen by ranch helper Discussed with pulmonary 08/02/2022: Plans to do bronchoscopy early next week if COVID test is negative Marcyis on hold for planned bronchoscopy on Saturday (2) COVID-19: Code(s): U07.1 - COVID-19 Status: Acute (3) Aspiration pneumonia: Code(s): J69.0 - Pneumonitis due to inhalation of food and vomit Status: Acute (4) Bronchial obstruction: Code(s): J98.09 - Other diseases of bronchus, not elsewhere classified Status: Acute Assessment and Plan: CTA on admission showed 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 Bronchoscopic correlation and biopsy should be considered which is tentatively planned for Saturday Left hilar and subcarinal lymphadenopathy No evidence of pulmonary embolism Ascending aortic ectasia (4.3 cm diameter) Bronchoscopy will be planned once COVID is negative and off apixaban for 24 hours period Discussed with pulmonary (5) Chronic renal failure, stage 3a: Code(s): N18.31 - Chronic kidney disease, stage 3a Status: Chronic (6) Factor V Leiden: Code(s): D68.51 - Activated protein C resistance Status: Chronic (7) BPH (benign prostatic hyperplasia): Code(s): N40.0 - Benign prostatic hyperplasia without lower urinary tract symptoms Status: Acute (8) Urinary tract infection: Code(s): N39.0 - Urinary tract infection, site not specified Status: Acute Assessment and Plan: Klebsiella ESBL On cefepime IV Plan # Severe acute hypoxic respiratory failure likely due to COVID and concomitant compression of left mainstem bronchus with associated postobstructive versus aspiration pneumonia. On exam patient has thick yellow mucus in his posterior oropharynx in coding is soft palate, patient has a weak cough and will not likely built to provide sputum specimen. He has received Decadron and Remdesivir for COVID. also placed patient on broad-spectrum antibiotic coverage with cefepime and vancomycin. Pulmonology has been consulted for recommendations see the patient may benefit from bronchoscopy to evaluate bronchus compression. patient on scheduled nebulizer treatments with albuterol and Atrovent. #CT and states possible enterocolitis but the patient does not sound having any GI symptoms. 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 home medication # seizure disorder Natalya Subjective Date/time seen: 08/04/22 11:58 Interval history: patient presented with hypoxia requiring high-flow oxygen via nasal cannula. Test positive for COVID. He was started on dexamethasone and remdesivir, finish the tested. Off oxygen. Chest x-ray showed left lung atelectasis with leukocytosis while off antibiotics. Urine culture grew Klebsiella ESBL. Pulmonary on board planning for bronchoscopy with possible bronchial biopsy of left mainstem occluding mass once PCR is negative. Patient is wheelchair-bound. Feels well. Denies any shortness of breath. Denies any cough. Patient poor historian. Has underlying dementia. 08/02/2022: No overnight events. Patient reports his breathing has improved.
[2022-08-04 16:23] LABS: SARS-CoV-2 RNA PCR Positive
[2022-08-04] MEDS: levETIRAcetam 500 MG TABLET 1000 MG BY MOUTH (20:56)
[2022-08-05] VITALS (11 sets, daily range): BP systolic 101–135; BP diastolic 68–83; PULSE 78–105; RESP 12–20; TEMP 36.1–36.6; O2SAT 92–97
[2022-08-05] MEDS: ALBUTEROL SULFATE NEB 2.5 MG/3 ML INH 5 MG INHALATION ×6 (02:52→21:54)
[2022-08-05] MEDS: IPRATROPIUM BR 0.02% INH SOLN 0.5 MG/2.5 ML VIAL INHALATION ×6 (02:53→21:54)
[2022-08-05 08:07] LABS: Hematocrit 42.4 % (42.0-52.0); Hemoglobin 13.9 g/dL (14.0-18.0); Mean Corpuscular HGB Conc 32.8 g/dl (32-36); Mean Corpuscular Hemoglobin 29.7 pg (26-34); Mean Corpuscular Volume 90.6 fl (80-100); Mean Platelet Volume 9.3 fl (7.4-10.4); Platelet Count Result 351 k/mm3 (150-375); Red Blood Count 4.68 M/mm3 (4.6-6.20); White Blood Count 11.7 K/mm3 (4.5-10.0)
--- NOTE | 2022-08-05 08:21 | PM.IMPN ---
Progress Note: A&P Assessment and Plan (1) Acute respiratory failure with hypoxia: Code(s): J96.01 - Acute respiratory failure with hypoxia Status: Acute Assessment and Plan: patient presented with hypoxia. Tested positive for COVID and was requiring high flow N/C, treated with dexamethasone and remdesivir. Finished the course of remdesivir oxygen has been tapered off and currently on room air. patient is on room air, patient was seen by pulmonology and stopped remdesivir and dexamethasone, repeat chest x-ray shows persistent chronic left basilar infiltrate, patient urinary is positive for Klebsiella pneumonia ESBL, patient being treated Cefepime patient is seen by core measures abstractor Discussed with pulmonary 08/02/2022: Plans to do bronchoscopy early next week if COVID test is negative Eliquis on hold for planned bronchoscopy on Saturday08/04/2022 COVID test still came back positive [place] with Pulmonary if he will be able to do bronchoscopy Saturday. 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 Bronchoscopic correlation and biopsy should be considered which is tentatively planned for Saturday Left hilar and subcarinal lymphadenopathy No evidence of pulmonary embolism Ascending aortic ectasia (4.3 cm diameter) Bronchoscopy will be planned once COVID is negative and off apixaban for 24 hours period. Apixaban currently on hold for planned bronchoscopy Discussed with pulmonary (5) Chronic renal failure, stage 3a: Code(s): N18.31 - Chronic kidney disease, stage 3a Status: Chronic (6) Factor V Leiden: Code(s): D68.51 - Activated protein C resistance Status: Chronic (7) BPH (benign prostatic hyperplasia): Code(s): N40.0 - Benign prostatic hyperplasia without lower urinary tract symptoms Status: Acute (8) Urinary tract infection: Code(s): N39.0 - Urinary tract infection, site not specified Status: Acute Assessment and Plan: Klebsiella ESBL On cefepime IV Plan # Severe acute hypoxic respiratory failure likely due to COVID and concomitant compression of left mainstem bronchus with associated postobstructive versus aspiration pneumonia. On exam patient has thick yellow mucus in his posterior oropharynx in coding is soft palate, patient has a weak cough and will not likely built to provide sputum specimen. He has received Decadron and Remdesivir for COVID. also placed patient on broad-spectrum antibiotic coverage with cefepime and vancomycin. Pulmonology has been consulted for recommendations see the patient may benefit from bronchoscopy to evaluate bronchus compression. patient on scheduled nebulizer treatments with albuterol and Atrovent. #CT and states possible enterocolitis but the patient does not sound having any GI symptoms. 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 home medication # seizure disorder Natalya Subjective Date/time seen: 08/05/22 08:21 Interval history: patient presented with hypoxia requiring high-flow oxygen via nasal cannula. Test positive for COVID. He was started on dexamethasone and remdesivir, finish the tested. Off oxygen. Chest x-ray showed left lung atelectasis with leukocytosis while off antibiotics. Urine culture grew Klebsiella ESBL. Pulmonary on board planning for bronchoscopy with possible bronchial biopsy of left mainstem occluding mass once PCR is negative. Patient is wheelchair-bound. Feels well. Denies any shor
[2022-08-05 08:24] LABS: Alanine Aminotransferase 37 U/L (6-50); Albumin Level 3.3 g/dL (3.5-5.1); Alkaline Phosphatase 105 U/L (38-126); Anion Gap 4 mmol/L (8-16); Aspartate Amino Transferase 33 U/L (17-59); Bilirubin,Total 0.4 mg/dL (0.2-1.3); Blood Urea Nitrogen 17 mg/dL (9-20); Calcium 9.6 mg/dL (8.4-10.2); Carbon Dioxide 33 mmol/L (22-30); Chloride 101 mmol/L (98-107); Estimated CRCL calculation 41 ml/min; Estimated Glomerular Filt Rate > 60; Glucose 115 mg/dL (65-110); Magnesium 2.4 mg/dL (1.6-2.3); Potassium 4.1 mmol/L (3.4-5.0); Sodium 138 mmol/L (137-145)
[2022-08-05] MEDS: levETIRAcetam 500 MG TABLET BY MOUTH (08:24)
[2022-08-05] MEDS: MULTIVITAMINS /C LUTEIN (CENTRUM SILVER) TABLET *BKC 1 TAB PO (08:25)
[2022-08-05] MEDS: CALCIUM CARBONATE (OSCAL) 500 MG TABLET PO (08:25)
[2022-08-05] MEDS: TAMSULOSIN HCL 0.4 MG CAPSULE PO ×2 (08:25→21:10)
[2022-08-05] MEDS: GABAPENTIN 100 MG CAPSULE 200 MG PO ×2 (08:25→17:11)
[2022-08-05] MEDS: DUTASTERIDE 0.5 MG CAPSULE PO (08:25)
[2022-08-05] MEDS: OXYBUTYNIN CHLORIDE 5 MG TABLET PO ×2 (08:25→17:11)
[2022-08-05] MEDS: DONEPEZIL HCL 10 MG TABLET PO (08:25)
--- NOTE | 2022-08-05 12:37 | PM.PNPUL ---
Progress Note: A&P Assessment and Plan (1) Acute respiratory failure with hypoxia: Code(s): J96.01 - Acute respiratory failure with hypoxia Status: Acute Assessment and Plan: Respiratory status stable and essentially unchanged over the last 24 hours. on physical exam auscultatory findings are essentially unchanged. Patient receiving antibiotics for UTI due to Klebsiella ESBL. WBC trending down. Chest x-ray done yesterday showed persistent left lung atelectasis, most likely related to left mainstem lesion seen on initial chest CT. Discussed patient's respiratory status with his , inccluding the need for bronchoscopy regarding persistent left lung atelectasis related to left mainstem lesion. Plan: Will proceed with bronchoscopy possibly tomorrow. Patient has been off the direct anticoagulant for 2 days. Ordered PT INR. NPO after midnight. Case was discussed with the hospitalist. (2) COVID-19: Code(s): U07.1 - COVID-19 Status: Acute (3) Factor V Leiden: Code(s): D68.51 - Activated protein C resistance Status: Chronic (4) Dementia: Code(s): F03.90 - Unspecified dementia, unspecified severity, without behavioral disturbance, psychotic disturbance, mood disturbance, and anxiety Status: Chronic Subjective Date/time seen: 08/05/22 12:37 patient has no new respiratory symptoms. Remaining on room air. Last test for COVID 19 infection still positive. Chest x-ray done yesterday showed partial atelectasis on left as before. Remains on IV antibiotics for Klebsiella ESBL UTI. Review of Systems Review of Systems: All systems reviewed & are unremarkable except as noted in HPI and below Exam Narrative: GENERAL APPEARANCE: Well developed, well nourished, Awake cooperative and in no respiratory distress. SKIN: Inspection of the skin reveals no rashes, ulcerations or petechiae. HEENT: Sclerae anicteric and conjunctivae pink and moist. Extraocular movements were intact and pupils were equal, round. Dry oral mucosa CHEST: Normal AP diameter and normal contour without any kyphoscoliosis. LUNGS: decreased breath sounds at left base posteriorly, no wheezing CARDIAC: There was a regular rate and rhythm without any murmurs. LYMPH NODES: No lymphadenopathy was appreciated in the neck. EXTREMITIES: No cyanosis, clubbing or edema. NEUROLOGIC: awake cooperative moving or extremities. Objective Data Vital Signs Vital Signs: Vital Signs - 24 hr 08/04/22 14:00 08/04/22 15:30 08/04/22 15:43 Temperature 35.8 C L Pulse Rate 88 80 85 Respiratory Rate 16 18 18 Blood Pressure 100/67 Pulse Oximetry 95 Oxygen Delivery 08/04/22 20:19 08/04/22 20:44 08/04/22 20:44 Temperature 36.7 C Pulse Rate 98 95 95 Respiratory Rate 16 18 18 Blood Pressure 124/79 Pulse Oximetry 94 95 Oxygen Delivery Room Air 08/04/22 21:02 08/04/22 20:30 08/04/22 23:58 Temperature 36.5 C Pulse Rate 101 H 101 H 81 Respiratory Rate 18 18 12 Blood Pressure 112/58 L Pulse Oximetry 95 96 Oxygen Delivery Room Air 08/05/22 02:54 08/05/22 02:54 08/05/22 03:09 Temperature Pulse Rate 81 81 99 Respiratory Rate 16 16 16 Blood Pressure Pulse Oximetry 94 Oxygen Delivery Room Air 08/05/22 05:43 08/05/22 09:45 08/05/22 09:54 Temperature 36.6 C Pulse Rate 87 101 H 105 H Respiratory Rate 12 18 18 Blood Pressure 113/68 Pulse Oximetry 92 Oxygen Delivery 08/05/22 08:15 Temperature Pulse Rate Respiratory Rate Blood Pressure Pulse Oximetry Oxygen Delivery Room Air Intake/Output Intake/Output: Intake & Output 08/02/22 08/03/22 08/04/22 08/05/22 23:59 23:59 23:59 23:59 Intake Total 820 1350 1310 532 Output Total 920 Balance -100 1350 1310 532 Meds/Results Medications: Active Medications Generic Name Dose Route Start Last Admin Trade Name Freq PRN Reason Stop Dose Admin Albuterol 5 mg 07/27/22 08:00
[2022-08-05 13:22] LABS: INR 1.2; Prothrombin Time 15.1 Seconds (11.1-14.7)
[2022-08-05 20:33] LABS: Appearance Urine Slightly Cloudy (Clear); Bilirubin Urine Negative (Negative); Blood Urine Trace-lysed (Negative); Color Urine Yellow (Yellow); Glucose Urine UA Negative (Negative); Ketones Urine Negative (Negative); Leukocyte Esterase Ur Negative LEU/UL (Negative); Nitrate Urine Negative (Negative); Protein Urine 2+ mg/dL (Negative); Urobilinogen Urine 0.2 mg/dL (<2.0)
[2022-08-05 20:37] LABS: Amorphous Sediment Urine Few; RBC Urine 0-2 /hpf (0-2); WBC Urine 0-3 /hpf
[2022-08-05 20:39] LABS: Add Urine Microscopic? YES
[2022-08-05] MEDS: levETIRAcetam 500 MG TABLET 1000 MG BY MOUTH (21:10)
--- NOTE | 2022-08-05 23:34 | PC.NURSE ---
Pt is resting in bed. Pt is able to turn self. Pt is unable to participate and contribute in plan of care due to A&O status. Pt has no complaints of pain at this time. Will continue to monitor pt.
[2022-08-06] VITALS (14 sets, daily range): BP systolic 100–132; BP diastolic 61–97; PULSE 64–107; RESP 14–31; TEMP 36.1–36.6; O2SAT 93–98
[2022-08-06] MEDS: ALBUTEROL SULFATE NEB 2.5 MG/3 ML INH 5 MG INHALATION ×2 (01:57→09:29)
[2022-08-06 06:41] LABS: Alanine Aminotransferase 40 U/L (6-50); Albumin Level 3.4 g/dL (3.5-5.1); Alkaline Phosphatase 96 U/L (38-126); Anion Gap 2 mmol/L (8-16); Aspartate Amino Transferase 36 U/L (17-59); Bilirubin,Total 0.5 mg/dL (0.2-1.3); Blood Urea Nitrogen 17 mg/dL (9-20); Calcium 10.1 mg/dL (8.4-10.2); Carbon Dioxide 32 mmol/L (22-30); Chloride 100 mmol/L (98-107); Estimated CRCL calculation 41 ml/min; Estimated Glomerular Filt Rate > 60; Glucose 125 mg/dL (65-110); Magnesium 2.4 mg/dL (1.6-2.3); Sodium 134 mmol/L (137-145)
[2022-08-06 06:47] LABS: Hematocrit 43.5 % (42.0-52.0); Hemoglobin 14.4 g/dL (14.0-18.0); Mean Corpuscular HGB Conc 33.1 g/dl (32-36); Mean Corpuscular Hemoglobin 30.7 pg (26-34); Mean Corpuscular Volume 92.8 fl (80-100); Mean Platelet Volume 9.4 fl (7.4-10.4); Platelet Count Result 341 k/mm3 (150-375); Red Blood Count 4.69 M/mm3 (4.6-6.20); Red Cell Distribution Width 13.2 % (11.5-14.5); White Blood Count 13.7 K/mm3 (4.5-10.0)
[2022-08-06] MEDS: CALCIUM CARBONATE (OSCAL) 500 MG TABLET PO (09:08)
[2022-08-06] MEDS: TAMSULOSIN HCL 0.4 MG CAPSULE PO ×2 (09:08→17:45)
[2022-08-06] MEDS: MULTIVITAMINS /C LUTEIN (CENTRUM SILVER) TABLET *BKC 1 TAB PO (09:08)
[2022-08-06] MEDS: GABAPENTIN 100 MG CAPSULE 200 MG PO ×2 (09:08→17:44)
[2022-08-06] MEDS: OXYBUTYNIN CHLORIDE 5 MG TABLET PO ×2 (09:08→17:45)
[2022-08-06] MEDS: DUTASTERIDE 0.5 MG CAPSULE PO (09:08)
[2022-08-06] MEDS: levETIRAcetam 500 MG TABLET BY MOUTH (09:08)
[2022-08-06] MEDS: DONEPEZIL HCL 10 MG TABLET PO (09:09)
[2022-08-06] MEDS: IPRATROPIUM BR 0.02% INH SOLN 0.5 MG/2.5 ML VIAL INHALATION (09:29)
--- NOTE | 2022-08-06 12:51 | PCOTNOTE ---
Attempted to see Patient at this time. Patient is out of the room having a bronchoscopy done.
[2022-08-06] MEDS: LACTATED RINGERS 1,000 ML 150 ML IV CONT (12:58)
--- NOTE | 2022-08-06 13:12 | WPDANESEPPF ---
Anes - Initial Pre Proc Eval Procedure: Operation Date: 08/06/22 15:00 Proposed Procedures p Flexible Bronchoscopy - Jorge Luis Enriquez MD Date/Time: 08/06/22 13:12 Surgeon: Ritchie Blanca MD Pre Op Diagnosis: COVID 19/Acute Respiratory Failure w Hypoxia/L Richard Patient Data Age: 81 Gender: M Height: 1.68 m Weight: 58.3 kg Last Vital Signs Temp 36.3 C L 08/06/22 12:55 Pulse 89 08/06/22 12:55 Resp 20 08/06/22 12:55 BP 106/61 08/06/22 12:55 Pulse Ox 94 08/06/22 12:55 O2 Del Method Room Air 08/06/22 12:55 O2 Flow Rate 2 07/28/22 20:00 Allergies Allergy/AdvReac Type Severity Reaction Status Date / Time doxycycline Allergy Mild rash Verified 05/17/22 14:18 Home Medications Medication Instructions Recorded Confirmed Type donepezil 10 mg tablet 10 mg PO DAILY #90 tabs 02/16/22 07/27/22 Rx tamsulosin 0.4 mg capsule 0.4 mg PO DAILY #90 caps 03/21/22 07/27/22 Rx Light weight manual wheel chair #1 ea 05/08/22 07/27/22 Rx with swing away foot rests levetiracetam 500 mg tablet See Rx Instructions .Route 05/16/22 07/27/22 Rx .COMPLEX #270 tabs Adults Multivitamin 1 tab-cap PO DAILY 07/27/22 07/27/22 History apixaban 5 mg tablet (Eliquis) 5 mg PO BID 07/27/22 07/27/22 History calcium 600 mg capsule 600 mg PO DAILY 07/27/22 07/27/22 History calcium carb-ergocalciferol (vit 2 tablet PO BID 07/27/22 07/27/22 History D2) 600 mg calcium-200 unit tablet cetirizine 10 mg tablet (Zyrtec) 10 mg PO DAILY PRN Allergy Symptoms 07/27/22 07/27/22 History dutasteride 0.5 mg capsule 0.5 mg PO DAILY 07/27/22 07/27/22 History gabapentin 100 mg capsule 200 mg PO BID 07/27/22 07/27/22 History oxybutynin chloride 5 mg tablet 5 mg PO BID 07/27/22 07/27/22 History triamcinolone acetonide 0.1 % 1 applic topical DAILY PRN Wound 07/27/22 07/27/22 History topical cream Healing amoxicillin 875 mg-potassium 1 tablet PO Q12H #6 tabs 08/02/22 Rx clavulanate 125 mg tablet sulfamethoxazole 800 1 tablet PO Q12H #6 tabs 08/02/22 Rx mg-trimethoprim 160 mg tablet (Bactrim DS) Laboratory Tests 08/05/22 08/05/22 08/06/22 12:49 20:26 06:14 WBC 13.7 K/mm3 H K/mm3 (4.5-10.0) RBC 4.69 M/mm3 M/mm3 (4.6-6.20) Hgb 14.4 g/dL g/dL (14.0-18.0) Hct 43.5 % % (42.0-52.0) MCV 92.8 fl fl (80-100) MCH 30.7 pg pg (26-34) MCHC 33.1 g/dl g/dl (32-36) RDW 13.2 % % (11.5-14.5) Plt Count 341 k/mm3 k/mm3 (150-375) MPV 9.4 fl fl (7.4-10.4) PT 15.1 Seconds H D Seconds (11.1-14.7) INR 1.2 Sodium Potassium Chloride Carbon Dioxide Anion Gap BUN Creatinine Estim Creat Clear Calc Estimated GFR Glucose Calcium Magnesium Total Bilirubin AST ALT Alkaline Phosphatase Total Protein Albumin Urine Color Yellow (Yellow) Urine Appearance Slightly cloudy (Clear) Urine pH 7.0 (5.0-9.0) Ur Specific [place] 1.020 (1.001-1.035) Urine Protein 2+ mg/dL H mg/dL (Negative) Urine Glucose (UA) Negative mg/dL mg/dL (Negative) Urine Ketones Negative mg/dL mg/dL (Negative) Ur Blood (Man) Trace-lysed (Negative) Urine Nitrate Negative (Negative) Urine Bilirubin Negative (Negative) Urine Urobilinogen 0.2 mg/dL mg/dL (<2.0) Leukocyte Esterase Rfl Negative BALJEET/UL BALJEET/UL (Negative) Urine RBC 0-2 /hpf /hpf (0-2) Urine WBC 0-3 /hpf /hpf Amorphous Sediment Few H (None) 08/06/22 06:14 WBC RBC Hgb Hct MCV MCH MCHC RDW Plt Count MPV PT
[2022-08-06] MEDS: LIDOCAINE HCL 2% LOCAL INJ 20 ML VIAL INFILTRATE (14:39)
[2022-08-06] MEDS: SODIUM CHLORIDE 0.9% IV 500 ML BAG IRRIGATION (14:40)
--- NOTE | 2022-08-06 14:58 | PM.PNPUL ---
Progress Note: A&P Assessment and Plan (1) Acute respiratory failure with hypoxia: Code(s): J96.01 - Acute respiratory failure with hypoxia Status: Acute Assessment and Plan: 81-year-old man has had left lung partial atelectasis with infiltrate in the left lower lobe. Patient was tested positive for COVID-19 infection when admitted to the hospital. has been on treatment with cefepime IV for Klebsiella ESBL in the urine. Patient underwent bronchoscopy earlier today. Bronchoscopy showed increased secretions in the left upper lobe and left lower lobe, also loose mucus plugs in left mainstem bronchus. There was no evidence of intraluminal masses. Right lung appeared unremarkable. All secretions and mucus plugs suctioned clear. Washings were sent for routine cultures. Plan: Okay to resume direct anticoagulant. Will repeat chest x-ray in a.m.. Okay to discharge patient home in am. patient will need to repeat tear to pulmonary clinic for follow-up with repeat chest x-ray in approximately 1 month. will Sign off call with any questions. (2) COVID-19: Code(s): U07.1 - COVID-19 Status: Acute (3) Factor V Leiden: Code(s): D68.51 - Activated protein C resistance Status: Chronic (4) Dementia: Code(s): F03.90 - Unspecified dementia, unspecified severity, without behavioral disturbance, psychotic disturbance, mood disturbance, and anxiety Status: Chronic Subjective Date/time seen: 08/06/22 14:58 Patient has no new respiratory symptoms. He remains on room air. has been on treatment for UTI. Underwent bronchoscopy earlier today. Review of Systems Review of Systems: All systems reviewed & are unremarkable except as noted in HPI and below Exam Narrative: GENERAL APPEARANCE: Well developed, well nourished, Awake cooperative and in no respiratory distress. SKIN: Inspection of the skin reveals no rashes, ulcerations or petechiae. HEENT: Sclerae anicteric and conjunctivae pink and moist. Extraocular movements were intact and pupils were equal, round. Dry oral mucosa CHEST: Normal AP diameter and normal contour without any kyphoscoliosis. LUNGS: decreased breath sounds at left base posteriorly, no wheezing CARDIAC: There was a regular rate and rhythm without any murmurs. LYMPH NODES: No lymphadenopathy was appreciated in the neck. EXTREMITIES: No cyanosis, clubbing or edema. NEUROLOGIC: awake cooperative moving or extremities. Objective Data Vital Signs Vital Signs: Vital Signs - 24 hr 08/05/22 15:41 08/05/22 15:50 08/05/22 15:51 Temperature Pulse Rate 78 83 78 Respiratory Rate 18 18 18 Blood Pressure Pulse Oximetry 97 Oxygen Delivery Room Air 08/05/22 21:13 08/05/22 21:54 08/05/22 22:00 Temperature 36.5 C Pulse Rate 78 85 Respiratory Rate 18 20 Blood Pressure 135/79 Pulse Oximetry 93 Oxygen Delivery Room Air 08/06/22 01:57 08/06/22 06:00 08/06/22 09:25 Temperature 36.1 C L Pulse Rate 107 H 64 79 Respiratory Rate 18 16 18 Blood Pressure 119/76 Pulse Oximetry 94 Oxygen Delivery 08/06/22 09:31 08/06/22 09:34 08/06/22 09:15 Temperature Pulse Rate 79 76 Respiratory Rate 18 Blood Pressure Pulse Oximetry 93 Oxygen Delivery Room Air Room Air 08/06/22 12:55 Temperature 36.3 C L Pulse Rate 89 Respiratory Rate 20 Blood Pressure 106/61 Pulse Oximetry 94 Oxygen Delivery Room Air Intake/Output Intake/Output: Intake & Output 08/03/22 08/04/22 08/05/22 08/06/22 23:59 23:59 23:59 23:59 Intake Total 1350 1310 1242 100 Output Total 550 Balance 1350 1310 692 100 Meds/Results Medications: Active Medications Generic Name Dose Route Start Last Admin Trade Name Freq PRN Reason Stop Dose Admin Albuterol 5 mg 07/27/22 08:00 08/06/22 09:29 Albuterol Sulfate Neb 2.5 Mg/3 Ml Inh INHALATION 5 mg Q6HRT MONE Administration Apixaban 5 mg 07/27/22 17:00 08/03/22 17:20 A
--- NOTE | 2022-08-06 16:31 | PM.IMPN ---
Progress Note: A&P Assessment and Plan (1) Acute respiratory failure with hypoxia: Code(s): J96.01 - Acute respiratory failure with hypoxia Status: Acute Assessment and Plan: patient presented with hypoxia. Tested positive for COVID and was requiring high flow N/C, treated with dexamethasone and remdesivir. Finished the course of remdesivir oxygen has been tapered off and currently on room air. 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 Bronchoscopic correlation and biopsy should be considered which is tentatively planned for Saturday Left hilar and subcarinal lymphadenopathy No evidence of pulmonary embolism Ascending aortic ectasia (4.3 cm diameter) Bronchoscopy will be planned once COVID is negative and off apixaban for 24 hours period. Apixaban currently on hold for planned bronchoscopy Discussed with pulmonary (5) Chronic renal failure, stage 3a: Code(s): N18.31 - Chronic kidney disease, stage 3a Status: Chronic (6) Factor V Leiden: Code(s): D68.51 - Activated protein C resistance Status: Chronic (7) BPH (benign prostatic hyperplasia): Code(s): N40.0 - Benign prostatic hyperplasia without lower urinary tract symptoms Status: Acute (8) Urinary tract infection: Code(s): N39.0 - Urinary tract infection, site not specified Status: Acute Assessment and Plan: Klebsiella ESBL On cefepime IV Plan # Severe acute hypoxic respiratory failure likely due to COVID and concomitant compression of left mainstem bronchus with associated postobstructive versus aspiration pneumonia. On exam patient has thick yellow mucus in his posterior oropharynx in coding is soft palate, patient has a weak cough and will not likely built to provide sputum specimen. He has received Decadron and Remdesivir for COVID. also placed patient on broad-spectrum antibiotic coverage with cefepime and vancomycin. Pulmonology has been consulted for recommendations see the patient may benefit from bronchoscopy to evaluate bronchus compression. patient on scheduled nebulizer treatments with albuterol and Atrovent. plan bronchoscopy today #CT and states possible enterocolitis but the patient does not sound having any GI symptoms. 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 home medication # seizure disorder Natalya Subjective Date/time seen: 08/06/22 16:31 Interval history: patient presented with hypoxia requiring high-flow oxygen via nasal cannula. Test positive for COVID. He was started on dexamethasone and remdesivir, finish the tested. Off oxygen. Chest x-ray showed left lung atelectasis with leukocytosis while off antibiotics. Urine culture grew Klebsiella ESBL. Pulmonary on board planning for bronchoscopy with possible bronchial biopsy of left mainstem occluding mass once PCR is negative. Patient is wheelchair-bound. Feels well. Denies any shortness of breath. Denies any cough. Patient poor historian. Has underlying dementia. 08/02/2022: No overnight events. Patient reports his breathing has improved. Denies any
[2022-08-06] MEDS: APIXABAN 5 MG TABLET PO (17:44)
[2022-08-06] MEDS: levETIRAcetam 500 MG TABLET 1000 MG BY MOUTH (21:41)
--- NOTE | 2022-08-06 23:04 | PC.NURSE ---
Pt is resting in bed. Pt is a q 2 turn. Pt is unable to participate and contribute in plan of care. Pt has no complaints at this time. Will continue to monitor pt.
[2022-08-07 01:15] VITALS: BP 104/79; PULSE 98; RESP 16; TEMP 36.2; O2SAT 92
[2022-08-07] MEDS: ALBUTEROL SULFATE NEB 2.5 MG/3 ML INH 5 MG INHALATION ×2 (02:56→10:32)
[2022-08-07] MEDS: IPRATROPIUM BR 0.02% INH SOLN 0.5 MG/2.5 ML VIAL INHALATION ×2 (02:56→10:32)
[2022-08-07 02:57] VITALS: PULSE 90; RESP 18
[2022-08-07 06:00] VITALS: BP 106/76; PULSE 87; RESP 16; TEMP 36.1; O2SAT 93
[2022-08-07 06:45] LABS: Hematocrit 41.9 % (42.0-52.0); Hemoglobin 13.6 g/dL (14.0-18.0); Mean Corpuscular HGB Conc 32.5 g/dl (32-36); Mean Corpuscular Hemoglobin 30.1 pg (26-34); Mean Corpuscular Volume 92.7 fl (80-100); Mean Platelet Volume 9.3 fl (7.4-10.4); Platelet Count Result 318 k/mm3 (150-375); Red Blood Count 4.52 M/mm3 (4.6-6.20); Red Cell Distribution Width 13.1 % (11.5-14.5); White Blood Count 11.4 K/mm3 (4.5-10.0)
[2022-08-07 06:59] LABS: Alanine Aminotransferase 34 U/L (6-50); Albumin Level 3.3 g/dL (3.5-5.1); Alkaline Phosphatase 100 U/L (38-126); Anion Gap 5 mmol/L (8-16); Aspartate Amino Transferase 35 U/L (17-59); Bilirubin,Total 0.6 mg/dL (0.2-1.3); Blood Urea Nitrogen 23 mg/dL (9-20); Calcium 9.5 mg/dL (8.4-10.2); Carbon Dioxide 29 mmol/L (22-30); Chloride 100 mmol/L (98-107); Estimated CRCL calculation 34 ml/min; Estimated Glomerular Filt Rate 58; Glucose 112 mg/dL (65-110); Magnesium 2.3 mg/dL (1.6-2.3); Potassium 3.8 mmol/L (3.4-5.0); Sodium 134 mmol/L (137-145)
[2022-08-07 08:00] VITALS: O2SAT 94
[2022-08-07] MEDS: TAMSULOSIN HCL 0.4 MG CAPSULE PO (08:59)
[2022-08-07] MEDS: OXYBUTYNIN CHLORIDE 5 MG TABLET PO (08:59)
[2022-08-07] MEDS: GABAPENTIN 100 MG CAPSULE 200 MG PO (08:59)
[2022-08-07] MEDS: DONEPEZIL HCL 10 MG TABLET PO (08:59)
[2022-08-07] MEDS: levETIRAcetam 500 MG TABLET BY MOUTH (08:59)
[2022-08-07] MEDS: CALCIUM CARBONATE (OSCAL) 500 MG TABLET PO (08:59)
[2022-08-07] MEDS: DUTASTERIDE 0.5 MG CAPSULE PO (08:59)
[2022-08-07] MEDS: APIXABAN 5 MG TABLET PO (09:00)
[2022-08-07] MEDS: MULTIVITAMINS /C LUTEIN (CENTRUM SILVER) TABLET *BKC 1 TAB PO (09:00)
[2022-08-07 10:33] VITALS: PULSE 96; RESP 18; O2SAT 94
[2022-08-07 10:42] VITALS: PULSE 96; RESP 18
--- NOTE | 2022-08-07 11:53 | PM.DS ---
DS: Admitting Diagnosis Discharge Date 08/07/2022 Admitting Diagnosis shortness of breath DS: Discharge Diagnosis Discharge Diagnosis (1) Acute respiratory failure with hypoxia: Code(s): J96.01 - Acute respiratory failure with hypoxia Status: Acute (2) COVID-19: Code(s): U07.1 - COVID-19 Status: Acute (3) Aspiration pneumonia: Code(s): J69.0 - Pneumonitis due to inhalation of food and vomit Status: Acute (4) Bronchial obstruction: Code(s): J98.09 - Other diseases of bronchus, not elsewhere classified Status: Acute (5) Chronic renal failure, stage 3a: Code(s): N18.31 - Chronic kidney disease, stage 3a Status: Chronic (6) Factor V Leiden: Code(s): D68.51 - Activated protein C resistance Status: Chronic (7) BPH (benign prostatic hyperplasia): Code(s): N40.0 - Benign prostatic hyperplasia without lower urinary tract symptoms Status: Acute (8) Urinary tract infection: Code(s): N39.0 - Urinary tract infection, site not specified Status: Acute DS: Summary Hospital Course Hospital Course: # Acute respiratory failure with hypoxia: ?patient presented with hypoxia.? Tested positive? for COVID and was requiring high flow N/C,? treated with dexamethasone and remdesivir.? Finished the course of remdesivir oxygen has been tapered off and currently on room airPatient was seen by Pulmonary. a finish the course of remdesivir and dexamethasone during the hospital stay. A chest x-ray showed left basilar infiltrate which remained persistent on repeat x-rays. CTA also showed severe stricture/ near occlusion of the left mainstem bronchus with associated left lung infiltrate/ atelectasis particularly affecting the left lower lobe. Due to persistent atelectasis on the left lobe pulmonary suggested bronchoscopic evaluation. Due to COVID this was needed to be held until he recovered from the COVID infection. He eventually got bronchoscope P done on 08/06/2022. Bronchoscopy showed increased secretions in the left upper lobe and left lower lobe also loose mucus plugs in left mainstem bronchus. There was no evidence of intraluminal masses. Right lung appeared unremarkable. All secretions and mucus plugs suctioned clear. Washings were sent for routine culture. He was okay for discharge from pulmonary standpoint and will be followed up as an outpatient basis with repeat chest x-ray. # COVID-19 infection: See above delete that # bronchial obstruction: ? CTA on admission showed 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 Bronchoscopic correlation and biopsy should be considered which is tentatively planned for Saturday Left hilar and subcarinal lymphadenopathy No evidence of pulmonary embolism Ascending aortic ectasia (4.3 cm diameter) Bronchoscopy will be planned once COVID is negative and off apixaban for 24 hours period.? Bronchoscopy finding as noted above # chronic renal failure stage 3 a delete that # factor 5 Leiden: On chronic anticoagulation with apixaban Delete that # UTI with Klebsiella ESBL. Treated with IV cefepime. Finish the course during the hospital stay. Repeat UA on 08/05/2022 was clear # BPH: On Flomax. Increased dose to 0.4 mg b.i.d. during the hospital stay due to urinary retention 1 episode # CT and states possible enterocolitis but the patient does not sound having any GI symptoms. # seizure disorder Keppra # DVT prophylaxis on apixaban Time Spent with Patient Time attestation: Total time spent providing and/or coordinating discharge services: 45 minutes Exam Narrative: elderly frail not in acute distress Patient is comfortable, NAD HEENT: eyes are clear and none icteric LUNGS: normal respiratory effort Diminished breath sounds On left side ABD: not distended soft nontender Lower extrem
== END 2022-08-07 13:10 | disposition home health service (06) | DRG 177 ==
LOC: ANHED 06:52 → ANHIMU 08:46 → ANH3MEDSUR 07-28 11:21
PROVIDERS: Family Medicine; Internal Medicine Pulmonary Disease; Physician Assistant; Admitting Provider Internal Medicine; Emergency Provider Emergency Medicine; PCP Family Medicine Adolescent Medicine; Visit Provider Internal Medicine
PROC: 0BJ08ZZ Inspection of Tracheobronchial Tree, Via Natural or Artificial Opening Endoscopic (ICD-10-PCS; CPT 31622; principal; 2022-08-06 15:00)
DX: U07.1 COVID-19 (principal); J96.01 Acute respiratory failure with hypoxia; J69.0 Pneumonitis due to inhalation of food and vomit; T17.590A Other foreign object in bronchus causing asphyxiation, initial encounter; N39.0 Urinary tract infection, site not specified; Z16.12 Extended spectrum beta lactamase (ESBL) resistance; D68.51 Activated protein C resistance; L12.0 Bullous pemphigoid; N18.31 Chronic kidney disease, stage 3a; I12.9 Hypertensive chronic kidney disease with stage 1 through stage 4 chronic kidney disease, or unspecified chronic kidney disease; I71.20 Thoracic aortic aneurysm, without rupture, unspecified; I25.10 Atherosclerotic heart disease of native coronary artery without angina pectoris; M81.0 Age-related osteoporosis without current pathological fracture; N40.1 Benign prostatic hyperplasia with lower urinary tract symptoms; N39.41 Urge incontinence; B96.1 Klebsiella pneumoniae [K. pneumoniae] as the cause of diseases classified elsewhere; G40.909 Epilepsy, unspecified, not intractable, without status epilepticus; G62.9 Polyneuropathy, unspecified; F03.90 Unspecified dementia, unspecified severity, without behavioral disturbance, psychotic disturbance, mood disturbance, and anxiety; Z79.01 Long term (current) use of anticoagulants; Z86.711 Personal history of pulmonary embolism; Z99.3 Dependence on wheelchair
CPT/HCPCS: 36415; 36600; 70450; 71045; 71275; 72125; 73521; 80053; 80202; 81001; 82375; 82565; 82728; 82805; 83050; 83605; 83615; 83735; 83880; 84100; 84439; 84443; 84460; 84484; 85025; 85027; 85380; 85610; 85730; 86140; 87040; 87077; 87086; 87088; 87186; 87636; 92610; 93005; 94640; 96361; 96365; 96367; 96375; 97161; 97165; 97530; 97535; 99291; A9270; J0248; J0330; J0692; J0696; J1100; J1953; J2370; J2704; J3370; J7030; J7040; J7120; Q9967; U0003; U0005

== ENCOUNTER 2022-12-04 12:59 | Inpatient (IN) | payer OTHER, SELFPAY ==
[2022-12-04] VITALS (23 sets, daily range): BP systolic 106–134; BP diastolic 71–82; PULSE 85–104; RESP 14–20; TEMP 36.4–36.6; O2SAT 93–99; BMI 22.4
--- NOTE | ~2022-12-04 | XR_ITS ---
EXAMINATION: XR chest 1V portable DATE: 12/04/2022 13:34 INDICATION: Chest pain. TECHNIQUE: A single frontal view of the chest was obtained. COMPARISON: Chest one view 08/04/2022, chest CT 07/27/2022 FINDINGS: There is mild scarring at left lung apex. There are airspace opacities in left lower lobe. No pleural effusion or pneumothorax. The heart size is normal. There are changes of anterior fusion p rocedure in cervical spine. There are old healed left rib fractures. IMPRESSION: 1. Airspace opacities in left lower lobe, consistent with atelectasis versus pneumonia. Reviewed, dictated and finalized at location A. IMPRESSION: 1. Airspace opacities in left lower lobe, consistent with atelectasis versus pn eum[place].
--- NOTE | ~2022-12-04 | US_ITS ---
EXAMINATION: US venous doppler [facility] DATE: 12/05/2022 08:58 INDICATION: Lower limb edema. TECHNIQUE: Grayscale ultrasound images without and with compression and Doppler ultrasound images of the bilateral lower extremity veins were obtained. COMPARISON: Ultrasound 01/05/2018 FINDINGS: The visualized portions of right common femoral vein, profunda (deep) femoral vein, femoral vein, pop liteal vein, peroneal veins, posterior tibial veins, and greater saphenous vein outflow are patent. The visualized portions of left common femoral vein, profunda femoral vein, femoral vein, popliteal v ein, peroneal veins, posterior tibial veins, and greater saphenous vein outflow are patent. IMPRESSION: 1. No deep venous thrombosis. Reviewed, dictated and finalized at location A.
--- NOTE | 2022-12-04 13:07 | ECG_ITS ---
Measurements Intervals [place] Rate: 93 P: 26 UT: 161 QRS: -42 QRSD: 82 T: 17 QT: 326 QTc: 406 Interpretive Statements SINUS RHYTHM WITH SINUS ARRHYTHMIA POSSIBLE ANTERIOR MYOCARDIAL INFARCTION , OF INDETERMINATE AGE [30 ms Q WAVE IN V3/V4, OR R < 0.2 mV IN V4] INFERIOR MYOCARDIAL INFARCTION , PROBABLY OLD [40+ ms Q WAVE AND/OR ST/T ABNORMALITY IN II/aVF] COMPARED TO ECG 07/27/2022 04:00:53 SINUS ARRHYTHMIA NOW PRESENT Electronically Signed On 12-04-2022 16:12:45 CDT by Edison Aguirre M.D.
[2022-12-04] MEDS: NITROGLYCERIN OINTMENT 1 INCH DOSE TRANSDERM (13:22)
[2022-12-04 13:40] LABS: INR 1.5; Prothrombin Time 17.4 Seconds (11.1-14.7)
[2022-12-04 13:41] LABS: Partial Thromboplastin Time 43.5 SECONDS (22.3-36.8)
--- NOTE | 2022-12-04 13:41 | ED.CHESTPAIN ---
HPI - Chest Pain General Chief Complaint: Chest Pain Stated Complaint: STEMI History of Present Illness HPI narrative: Pt presetns with left sided non radiating chest pain since before noon today per and and EMS. Pt had some possible ST elevation in v3 per EMS. Pt was given aspirin and nitro per EMS and pain is nearly resolved. STEMI was called initially per EMS but EKG here did not reveal STEMI. Related Data Home Medications Medication Instructions Recorded Confirmed Adults Multivitamin 1 tab-cap PO DAILY 07/27/22 12/04/22 apixaban 5 mg tablet (Eliquis) 5 mg PO Q12H 07/27/22 12/04/22 cetirizine 10 mg tablet (Zyrtec) 10 mg PO DAILY PRN Allergy Symptoms 07/27/22 12/04/22 dutasteride 0.5 mg capsule 0.5 mg PO DAILY 07/27/22 12/04/22 gabapentin 100 mg capsule 200 mg PO Q12H 07/27/22 12/04/22 oxybutynin chloride 5 mg tablet 5 mg PO Q12H 07/27/22 12/04/22 triamcinolone acetonide 0.1 % 1 applic topical DAILY PRN Wound 07/27/22 12/04/22 topical cream Healing Calcium-Vitamin D See Rx Instructions .Route .COMPLEX 12/04/22 12/04/22 donepezil 10 mg tablet 10 mg PO HS 12/04/22 12/04/22 tamsulosin 0.4 mg capsule 0.4 mg PO DIRECTED 12/04/22 12/04/22 Allergies Allergy/AdvReac Type Severity Reaction Status Date / Time doxycycline Allergy Mild rash Verified 10/17/22 13:46 Review of Systems Review of Systems: All systems reviewed & are unremarkable except as noted in HPI and below PENDING SALE TO [facility] Past Medical History Medical History Atherosclerotic heart disease of [place] coronary artery without angina pectoris BPH (benign prostatic hyperplasia) Chronic renal failure, stage 3a Dementia Erectile dysfunction Factor V Leiden HTN (hypertension) Osteoporosis Peripheral neuropathy Pulmonary embolism with acute cor pulmonale (12/2017) He was transferred to tertiary care for thrombectomy with echo at that time demonstrated severe pulmonary hypertension and positive Adame sign Seizure disorder Thoracic aortic aneurysm Urge incontinence of urine Surgical History Surgical History History of fusion of cervical spine History of inguinal hernia repair, bilateral History of lumbar discectomy Family History Family History Mother Diabetes mellitus Heart disease Sibling Diabetes mellitus Father Dementia Social History Social History (Updated 12/04/22 @ 17:06 by Lashaun Chan NP) Social History: Patient has been for 62 years. He used to smoke in the distant past. Does not drink alcohol. He lives at home with his . He is wheelchair bound.[place] Smoking status: Former smoker Tobacco type: cigarettes Second hand tobacco smoke exposure: No Alcohol intake: never Substance use: never Substance use type: does not use Lack of Transportation: No Lack of Food: Never True Current Housing: I Have Housing Concerned About Future Housing: No Difficulty Paying Gas/Electric Bills: No Difficulty Paying for Meds: No Currently Unemployed: No Education: Don't Know Difficulty w/ Childcare or Family Care: No Living arrangements: with family Occupation/Education: retired Gender identity (if verbalized by the patient): Male Sexual Orientation (if Verbalized by the Patient): Straight or Heterosexual Spiritual care concerns: No Exam Const: General: healthy appearing Nutritional Appearance: thin Orientation/consciousness: patient oriented x3 Limitations: altered mental status (dementia) HENMT: Head: normal to inspection Eyes: Conjunctivae: conjunctivae normal Pupils: Equal, round and reactive pupils present EOM: EOMs intact bilaterally Neck: Neck: normal visual inspection Chest: Other: bruising to left chest noted Resp: Effort & Inspection: normal respiratory effort Auscultation: clear to auscultation bilaterally
[2022-12-04 13:50] LABS: Alanine Aminotransferase 26 U/L (6-50); Albumin Level 3.6 g/dL (3.5-5.1); Alkaline Phosphatase 126 U/L (38-126); Anion Gap 4 mmol/L (8-16); Aspartate Amino Transferase 25 U/L (17-59); Bilirubin,Total 0.6 mg/dL (0.2-1.3); Blood Urea Nitrogen 17 mg/dL (9-20); Calcium 8.9 mg/dL (8.4-10.2); Carbon Dioxide 30 mmol/L (22-30); Chloride 102 mmol/L (98-107); Estimated Glomerular Filt Rate > 60; Glucose 92 mg/dL (65-110); Sodium 136 mmol/L (137-145)
[2022-12-04 13:58] LABS: NT Pro B Type Natriuretic Pept 517 pg/mL (19.9-100)
[2022-12-04 14:01] LABS: Troponin I < 0.012 ng/mL (0.000-0.034)
[2022-12-04 14:06] LABS: Basophils Percent Auto 0.3 % (0.2-1.2); Eosinophils Percent Auto 0.3 % (0-4.4); Hematocrit 41.4 % (42.0-52.0); Hemoglobin 13.6 g/dL (14.0-18.0); Immature Granulocyte Absolute 0.04 K/mm3 (0.00-0.031); Immature Granulocyte Percent A 0.4 % (0-0.5); Lymphocytes Percent Auto 11.2 % (18.3-44.2); Mean Corpuscular HGB Conc 32.9 g/dl (32-36); Mean Corpuscular Hemoglobin 29.1 pg (26-34); Mean Corpuscular Volume 88.5 fl (80-100); Mean Platelet Volume 9.9 fl (7.4-10.4); Monocytes Absolute Auto 0.9 K/mm3 (0.1-0.6); Monocytes Percent Auto 9.5 % (2.6-8.5); Neutrophils Absolute Auto 7.7 K/mm3 (1.3-6.7); Neutrophils Percent Auto 78.3 % (45.5-73.1); Platelet Count Result 201 k/mm3 (150-375); Red Blood Count 4.68 M/mm3 (4.6-6.20); Red Cell Distribution Width 14.1 % (11.5-14.5); White Blood Count 9.8 K/mm3 (4.5-10.0)
--- NOTE | 2022-12-04 17:05 | PM.IMHP ---
H&P: HPI History of Present Illness Date/Time: 12/04/22 17:05 Chief Complaint: Chest pain Narrative: This is an 81-year-old male patient who has a history of dementia. He had been complaining of some left-sided nonradiating chest pain since before noon today. The activated EMS. EMS felt that there was some possible ST elevation in lead V3. However once the patient arrived [facility] repeat EKG did not show any elevated ST segment. The patient is no longer complaining of any discomfort. The patient was given aspirin and nitro per EMS and his pain was resolved. A STEMI was initially called but after review of the EKG in the emergency room, the EKG did not exhibit a STEMI. The patient's H&H is 13.6 and 41.4. All 3 troponins nonreactive. BNP is 517. Once the patient was admitted the suggested that we check his urine as the patient is more confused than normal. Patient was found to be positive for UTI. Chest x-ray was read as airspace opacities in left lower lobe consistent with atelectasis versus pneumonia. The patient denies any cough and does not have any leukocytosis. Therefore the patient was not treated for pneumonia. The patient is being admitted to observation status on the date of service of 12/04/2022 Review of Systems Review of Systems: All systems reviewed & are unremarkable except as noted in HPI and below Constitutional: Constitutional: Reports as per HPI and Reports no additional constitutional complaints Eyes: Eyes: Reports as per HPI and Reports no additional eye complaints ENT: Reports system reviewed and no additional complaints, except as documented and Reports Normal hearing present Cardiovascular: Cardiovascular: Reports no additional cardiovascular complaints Respiratory: Respiratory: Reports no additional respiratory complaints and Reports no additional respiratory complaints Gastrointestinal: Gastrointestinal: Reports as per HPI and Reports no additional gastrointestinal complaints Musculoskeletal: Musculoskeletal: Reports no additional musculoskeletal complaints Integumentary/Breasts: Skin/Breast: Reports system reviewed and no additional complaints, except as docu and Reports as per HPI Neurologic: Reports system reviewed and no additional complaints, except as documented, Reports as per HPI and Reports Normal hearing present Psychiatric: Psychiatric: Reports no additional psychiatric complaints and Reports as per HPI Endocrine: Endocrine: Reports no additional endocrine complaints Hematologic/Lymphatic: Hematologic/Lymphatic: Reports no additional hematologic/lymphatic complaints Allergic/Immunologic: Allergic/Immunologic: Reports no additional allergic/immunologic complaints [facility] Past Medical History Medical History (Updated 12/04/22 @ 22:43 by Lashaun Chan NP) Atherosclerotic heart disease of [place] coronary artery without angina pectoris BPH (benign prostatic hyperplasia) Chronic renal failure, stage 3a Dementia Erectile dysfunction Factor V Leiden HTN (hypertension) Osteoporosis Peripheral neuropathy Pulmonary embolism with acute cor pulmonale (12/2017) He was transferred to tertiary care for thrombectomy with echo at that time demonstrated severe pulmonary hypertension and positive Adame sign Seizure disorder Thoracic aortic aneurysm Urge incontinence of urine Surgical History Surgical History History of fusion of cervical spine History of inguinal hernia repair, bilateral History of lumbar discectomy Family History Family History Mother Diabetes mellitus Heart disease Sibling Diabetes mellitus Father Dementia Social History Social History (Updated 12/04/22 @ 22:24 by Lashaun Chan NP) Social History: Patient has been for over 60 years and continues to live with his . He used to smoke in the distant past. Does not
[2022-12-04 17:28] LABS: Troponin I < 0.012 ng/mL (0.000-0.034)
--- NOTE | 2022-12-04 19:55 | ADMGEN ---
This patient, Juan Manuel Vargas , was admitted to IMU Room 209-01 @ 1815 Patient/family oriented to hospital policies and general routines including ID bracelet, bed and alarms, visiting hours, pain management, procedures, bathroom and other care routines, personal items, smoking policy, room service/diet, and visiting hours. Information on how to activate the Rapid Response Team has been discussed. Patient/Family are encouraged to report perceived risks to care and to ask questions if they do not understand what they are told or what they should do.
[2022-12-04 20:58] LABS: Appearance Urine Cloudy (Clear); Bacteria Urine 4+ /hpf; Bilirubin Urine Negative (Negative); Blood Urine Negative (Negative); Color Urine Yellow (Yellow); Glucose Urine UA 1+ mg/dL (Negative); Ketones Urine Negative (Negative); Leukocyte Esterase Ur 1+ LEU/UL (Negative); Nitrate Urine Positive (Negative); Non Pathogenic Casts 0-2; Protein Urine 1+ mg/dL (Negative); RBC Urine 0-2 /hpf (0-2); Specific Grav Ur 1.017 (1.001-1.035); Squamous Epithelial Cell Urine None seen /hpf (Few); Urobilinogen Urine 0.2 mg/dL (<2.0); WBC Urine 21-50 /hpf
[2022-12-04 21:03] LABS: Add Urine Microscopic? YES
[2022-12-04 21:20] LABS: Troponin I < 0.012 ng/mL (0.000-0.034)
[2022-12-04] MEDS: APIXABAN 5 MG TABLET PO (23:23)
[2022-12-04] MEDS: levETIRAcetam 500 MG TABLET 1000 MG BY MOUTH (23:23)
[2022-12-04] MEDS: GABAPENTIN 100 MG CAPSULE 200 MG PO (23:23)
[2022-12-04] MEDS: oxyBUTYnin CHLORIDE 5 MG TABLET PO (23:26)
[2022-12-05] VITALS (17 sets, daily range): BP systolic 101–137; BP diastolic 56–85; PULSE 77–102; RESP 16–22; TEMP 36.5–36.8; O2SAT 93–100
--- NOTE | 2022-12-05 | ECHO_ITS ---
Patient Info Name: Juan Manuel Vargas Age: 81 years : 1940 Gender: Male Ht: 67 in Wt: 147 lbs BSA: 1.78 m2 HR: 90 bpm BP: 135 / 69 mmHg Heart Rhythm: Sinus Rhythm Technical Quality: Fair Exam Date: 12/05/2022 9:59 AM Exam Location: [facility] Pulmonary Patient Status: Inpatient Admit Date: 12/04/2022 Staff Ordering Physician: Lashaun Chan NP Crop Research Scientist: Grace Redmond RDCS Attending Provider: Lino Hand MD Referring Physician: Dustin DEUTSCH; Exam Type: CA echo doppler color flow Study Info Indications R07.9 - Chest pain, unspecified Complete two-dimensional, color flow and Doppler transthoracic echocardiogram is performed. Summary 1. Complete two-dimensional, color flow and Doppler transthoracic echocardiogram is performed. 2. Left ventricular chamber dimension is normal. 3. Left ventricular systolic function is normal, estimated at 65-70%. 4. There is mildly increased left ventricular wall thickness. 5. The left ventricular diastolic function is grade I diastolic dysfunction. 6. There is moderate aortic valve calcification. 7. There is mild mitral valve regurgitation. 8. There is mild tricuspid valve regurgitation. 9. Mild pulmonary hypertension, estimated pulmonary arterial systolic pressure is 38 mmHg. 10. There is moderate anterior pericardial effusion. 11. The pericardium appears thickened pericardium. Left Ventricle Left ventricular chamber dimension is normal. Left ventricular systolic function is normal, estimated at 65-70%. There is mildly increased left ventricular wall thickness. The left ventricular diastolic function is grade I diastolic dysfunction. Right Ventricle Right ventricular chamber dimension is normal. Right ventricular systolic function is normal. Left Atria Left atrial chamber dimension is normal. Right Atria Right atrial chamber dimension is normal. Atrial Septum Intact interatrial septum visualized by color flow imaging. Aortic Valve The aortic valve is trileaflet. There is no aortic valve stenosis. There is trace aortic valve regurgitation. There is moderate aortic valve calcification. Pulmonic Valve The pulmonic valve is normal. There is no pulmonic valve stenosis. There is trace pulmonic regurgitation. Mitral Valve The mitral valve has normal leaflets. There is no mitral valve stenosis. There is mild mitral valve regurgitation. Tricuspid Valve The tricuspid valve leaflets are normal. There is no significant tricuspid valve stenosis. There is mild tricuspid valve regurgitation. Mild pulmonary hypertension, estimated pulmonary arterial systolic pressure is 38 mmHg. Pericardium/Pleural The pericardium appears thickened pericardium. There is moderate anterior pericardial effusion. Aorta The aortic root size at the sinus of Valsalva is normal. The prox ascending aorta size is normal. Left Ventricular Outflow Tract Name Value Normal LVOT 2D LVOT Diameter 2.0 cm LVOT Doppler LVOT Peak Gradient 5 mmHg LVOT Mean Gradient 2 mmHg LVOT VTI
[2022-12-05 04:40] LABS: Basophils Percent Auto 0.5 % (0.2-1.2); Eosinophils Percent Auto 0.4 % (0-4.4); Hematocrit 40.9 % (42.0-52.0); Hemoglobin 13.5 g/dL (14.0-18.0); Immature Granulocyte Absolute 0.03 K/mm3 (0.00-0.031); Immature Granulocyte Percent A 0.4 % (0-0.5); Lymphocytes Absolute Auto 1.33 K/mm3 (0.9-3.2); Lymphocytes Percent Auto 15.9 % (18.3-44.2); Mean Corpuscular Hemoglobin 29.3 pg (26-34); Mean Corpuscular Volume 88.9 fl (80-100); Monocytes Absolute Auto 1.1 K/mm3 (0.1-0.6); Monocytes Percent Auto 13.5 % (2.6-8.5); Neutrophils Absolute Auto 5.8 K/mm3 (1.3-6.7); Neutrophils Percent Auto 69.3 % (45.5-73.1); Platelet Count Result 208 k/mm3 (150-375); Red Cell Distribution Width 14.2 % (11.5-14.5); White Blood Count 8.4 K/mm3 (4.5-10.0)
[2022-12-05 04:48] LABS: Alanine Aminotransferase 25 U/L (6-50); Albumin Level 3.5 g/dL (3.5-5.1); Alkaline Phosphatase 115 U/L (38-126); Anion Gap 4 mmol/L (8-16); Aspartate Amino Transferase 25 U/L (17-59); Bilirubin,Total 0.6 mg/dL (0.2-1.3); Blood Urea Nitrogen 16 mg/dL (9-20); Carbon Dioxide 31 mmol/L (22-30); Chloride 101 mmol/L (98-107); Estimated CRCL calculation 46 ml/min; Estimated Glomerular Filt Rate > 60; Glucose 108 mg/dL (65-110); Potassium 4.2 mmol/L (3.4-5.0); Sodium 136 mmol/L (137-145)
[2022-12-05 08:33] LABS: Glucose Point of Care 109 mg/dl (65-105)
[2022-12-05] MEDS: DUTASTERIDE 0.5 MG CAPSULE PO (09:42)
[2022-12-05] MEDS: oxyBUTYnin CHLORIDE 5 MG TABLET PO ×2 (09:42→20:17)
[2022-12-05] MEDS: TAMSULOSIN HCL 0.4 MG CAPSULE PO ×2 (09:45→17:05)
[2022-12-05] MEDS: levETIRAcetam 500 MG TABLET BY MOUTH (09:45)
[2022-12-05] MEDS: APIXABAN 5 MG TABLET PO ×2 (09:45→20:17)
[2022-12-05] MEDS: MULTIVITAMINS THERAPEUTIC TAB (*BKC) 1 TABLET PO (09:46)
[2022-12-05] MEDS: GABAPENTIN 100 MG CAPSULE 200 MG PO ×2 (09:59→20:17)
--- NOTE | 2022-12-05 14:29 | PM.IMPN ---
Progress Note: A&P Assessment and Plan (1) Chest pain: Code(s): R07.9 - Chest pain, unspecified Status: Acute Assessment and Plan: Troponins are negative x3. Echo has been ordered. Patient has no further complaints of chest pain. 12/05/2022 interval history: 81-year-old male presented with complaint of chest patient 3 sets of cardiac enzymes are negative and there are no acute changes on EKG, patient cardiac echo shows preserved LV function with grade 1 diastolic dysfunction, however patient was more confused his suspects patient may have UTI and urine is positive and patient is being treated with ceftriaxone and will follow up on culture further recommendation to follow, patient is a bed-bound, patient is present in the room. (2) Urinary tract infection: Code(s): N39.0 - Urinary tract infection, site not specified Status: Acute Assessment and Plan: The patient was started on Rocephin. Blood and urine cultures are pending Tailor antibiotics according to cultures and sensitivities. (3) BPH (benign prostatic hyperplasia): Code(s): N40.0 - Benign prostatic hyperplasia without lower urinary tract symptoms Status: Acute Assessment and Plan: Continue with Avodart and tamsulosin (4) HTN (hypertension): Code(s): I10 - Essential (primary) hypertension Status: Acute Assessment and Plan: Patient is just on medication for BPH. (5) Factor V Leiden: Code(s): D68.51 - Activated protein C resistance Status: Chronic Assessment and Plan: Continue with Eliquis (6) Dementia: Code(s): F03.90 - Unspecified dementia, unspecified severity, without behavioral disturbance, psychotic disturbance, mood disturbance, and anxiety Status: Chronic Assessment and Plan: Continue with Aricept (7) Polyneuropathy, unspecified: Code(s): G62.9 - Polyneuropathy, unspecified Status: Chronic Assessment and Plan: Continue with home medications. (8) Seizure disorder: Code(s): G40.909 - Epilepsy, unspecified, not intractable, without status epilepticus Status: Acute Assessment and Plan: Continue with Keppra Subjective Date/time seen: 12/05/22 14:29 Chest pain HPI-Narrative: This is an 81-year-old male patient who has a history of dementia.? He had been complaining of some left-sided nonradiating chest pain since before noon today.? The activated EMS.? EMS felt that there was some possible ST elevation in lead V3.? However once the patient arrived [facility] repeat EKG did not show any elevated ST segment.? The patient is no longer complaining of any discomfort.? The patient was given aspirin and nitro per EMS and his pain was resolved.? A STEMI was initially called but after review of the EKG in the emergency room, the EKG did not? exhibit a STEMI.? The patient's H&H is 13.6 and 41.4.? All 3 troponins nonreactive.? BNP is 517.? Once the patient was admitted the suggested that we check his urine as the patient is more confused than normal.? Patient was found to be positive for UTI.? Chest x-ray was read as airspace opacities in left lower lobe consistent with atelectasis versus pneumonia.? The patient denies any cough and does not have any leukocytosis.? Therefore the patient was not treated for pneumonia.? 12/05/2022 interval history: 81-year-old male presented with complaint of chest patient 3 sets of cardiac enzymes are negative and there are no acute changes on EKG, patient cardiac echo shows preserved LV function with grade 1 diastolic dysfunction, however patient was more confused his suspects patient may have UTI and urine is positive and patient is being treated with ceftriaxone and will follow up on culture further recommendation to follow, patient is a bed-bound, patient is present in the room. Review of Systems Review of Systems: All systems reviewed & are unremarkable e
[2022-12-05] MEDS: levETIRAcetam 500 MG TABLET 1000 MG BY MOUTH (20:17)
[2022-12-05] MEDS: DONEPEZIL HCL 10 MG TABLET PO (20:17)
[2022-12-06] VITALS (9 sets, daily range): BP systolic 104–119; BP diastolic 74–87; PULSE 67–104; RESP 17–20; TEMP 36.1–36.7; O2SAT 93–98
[2022-12-06] MEDS: DUTASTERIDE 0.5 MG CAPSULE PO (08:26)
[2022-12-06] MEDS: GABAPENTIN 100 MG CAPSULE 200 MG PO ×2 (08:26→21:06)
[2022-12-06] MEDS: MULTIVITAMINS THERAPEUTIC TAB (*BKC) 1 TABLET PO (08:26)
[2022-12-06] MEDS: APIXABAN 5 MG TABLET PO ×2 (08:27→21:06)
[2022-12-06] MEDS: levETIRAcetam 500 MG TABLET BY MOUTH (08:27)
[2022-12-06] MEDS: TAMSULOSIN HCL 0.4 MG CAPSULE PO ×2 (08:27→17:11)
[2022-12-06] MEDS: oxyBUTYnin CHLORIDE 5 MG TABLET PO ×2 (08:27→21:06)
--- NOTE | 2022-12-06 11:14 | PM.IMPN ---
Progress Note: A&P Assessment and Plan (1) Chest pain: Code(s): R07.9 - Chest pain, unspecified Status: Acute Assessment and Plan: Troponins are negative x3. Echo with normal EF 65-70% grade 1 diastolic dysfunction. Mild pulmonary hypertension. Moderate pericardial effusion. Patient has no further complaints of chest pain. 12/05/2022 interval history: 81-year-old male presented with complaint of chest patient 3 sets of cardiac enzymes are negative and there are no acute changes on EKG, patient cardiac echo shows preserved LV function with grade 1 diastolic dysfunction, however patient was more confused his suspects patient may have UTI and urine is positive and patient is being treated with ceftriaxone and will follow up on culture further recommendation to follow, patient is a bed-bound, patient is present in the room. (2) Urinary tract infection: Code(s): N39.0 - Urinary tract infection, site not specified Status: Acute Assessment and Plan: The patient was started on Rocephin. Urine culture with E coli pansensitive continue Rocephin Tailor antibiotics according to cultures and sensitivities. (3) BPH (benign prostatic hyperplasia): Code(s): N40.0 - Benign prostatic hyperplasia without lower urinary tract symptoms Status: Acute Assessment and Plan: Continue with Avodart and tamsulosin (4) HTN (hypertension): Code(s): I10 - Essential (primary) hypertension Status: Acute Assessment and Plan: Patient is just on medication for BPH. (5) Factor V Leiden: Code(s): D68.51 - Activated protein C resistance Status: Chronic Assessment and Plan: Continue with Eliquis (6) Dementia: Code(s): F03.90 - Unspecified dementia, unspecified severity, without behavioral disturbance, psychotic disturbance, mood disturbance, and anxiety Status: Chronic Assessment and Plan: Continue with Aricept (7) Polyneuropathy, unspecified: Code(s): G62.9 - Polyneuropathy, unspecified Status: Chronic Assessment and Plan: Continue with home medications. (8) Seizure disorder: Code(s): G40.909 - Epilepsy, unspecified, not intractable, without status epilepticus Status: Acute Assessment and Plan: Continue with Keppra Plan Factor 5 Leiden Recurrent UTIs Seizure disorder on Keppra BPH on Flomax CKD stage 3 Subjective Date/time seen: 12/06/22 11:14 Interval history: No overnight events. Remains confused. A chest EMS felt possible ST elevation in lead V3 STEMI call was made however after review of the EKG in the ER was determined not to be STEMI. Was admitted further evaluation. Noted to be more confused than usual positive for UTI. Chest x-ray with airspace opacities in the left lower lobe consistent with atelectasis versus pneumonia. No cough or leukocytosis noted on admission. Three set of cardiac enzymes MS negative. Overall echo with preserved LV function with grade 1 diastolic dysfunction. Started on ceftriaxone patient is bedbound Review of Systems Review of Systems: All systems reviewed & are unremarkable except as noted in HPI and below Exam Narrative: Patient appears chronically ill not in acute distress Patient is comfortable, NAD HEENT: eyes are clear and none icteric LUNGS: Normal respiratory effort, diminished breath sound bilaterally ABD: Not distended soft nontender Lower extremities: no edema cyanosis or clubbing SKIN: nonjaundiced Neuro: grossly intact. confused looking; Objective Data Vital Signs Vital Signs: Vital Signs - 24 hr 12/05/22 12:00 12/05/22 12:00 12/05/22 14:00 Temperature 98 F Pulse Rate 92 81 81 Respiratory Rate 20 Blood Pressure 120/78 Pulse Oximetry 97 Oxygen Delivery 12/05/22 16:00 12/05/22 16:00 12/05/22 18:00 Temperature 97.7 F Pulse Rate 87 82 79 Respiratory Rate 22 H Blood Pressure 120/85 Pul
[2022-12-06] MEDS: levETIRAcetam 500 MG TABLET 1000 MG BY MOUTH (21:06)
[2022-12-06] MEDS: AMOXICILLIN 500 MG CAPSULE PO (21:06)
[2022-12-06] MEDS: DONEPEZIL HCL 10 MG TABLET PO (21:07)
[2022-12-07] VITALS: PULSE 78
[2022-12-07 04:00] VITALS: PULSE 75
[2022-12-07 05:15] VITALS: BP 105/66; PULSE 92; RESP 17; TEMP 36.6; O2SAT 94
[2022-12-07] MEDS: AMOXICILLIN 500 MG CAPSULE PO (05:52)
[2022-12-07 06:01] LABS: Basophils Percent Auto 0.4 % (0.2-1.2); Eosinophils Absolute Auto 0.2 K/mm3 (0-0.3); Eosinophils Percent Auto 1.7 % (0-4.4); Hemoglobin 13.1 g/dL (14.0-18.0); Immature Granulocyte Absolute 0.05 K/mm3 (0.00-0.031); Immature Granulocyte Percent A 0.5 % (0-0.5); Lymphocytes Absolute Auto 1.39 K/mm3 (0.9-3.2); Lymphocytes Percent Auto 14.6 % (18.3-44.2); Mean Corpuscular HGB Conc 32.8 g/dl (32-36); Mean Corpuscular Hemoglobin 28.9 pg (26-34); Mean Corpuscular Volume 88.1 fl (80-100); Mean Platelet Volume 9.5 fl (7.4-10.4); Monocytes Absolute Auto 1.1 K/mm3 (0.1-0.6); Monocytes Percent Auto 11.7 % (2.6-8.5); Neutrophils Absolute Auto 6.8 K/mm3 (1.3-6.7); Neutrophils Percent Auto 71.1 % (45.5-73.1); Platelet Count Result 232 k/mm3 (150-375); Red Blood Count 4.54 M/mm3 (4.6-6.20); Red Cell Distribution Width 13.7 % (11.5-14.5); White Blood Count 9.5 K/mm3 (4.5-10.0)
[2022-12-07 06:07] LABS: Alanine Aminotransferase 32 U/L (6-50); Albumin Level 3.2 g/dL (3.5-5.1); Alkaline Phosphatase 109 U/L (38-126); Anion Gap 4 mmol/L (8-16); Aspartate Amino Transferase 33 U/L (17-59); Bilirubin,Total 0.5 mg/dL (0.2-1.3); Blood Urea Nitrogen 24 mg/dL (9-20); Calcium 8.6 mg/dL (8.4-10.2); Carbon Dioxide 30 mmol/L (22-30); Chloride 101 mmol/L (98-107); Estimated CRCL calculation 42 ml/min; Estimated Glomerular Filt Rate > 60; Glucose 119 mg/dL (65-110); Magnesium 2.1 mg/dL (1.6-2.3); Potassium 3.8 mmol/L (3.4-5.0); Sodium 135 mmol/L (137-145)
[2022-12-07 08:00] VITALS: PULSE 76
[2022-12-07] MEDS: oxyBUTYnin CHLORIDE 5 MG TABLET PO (08:35)
[2022-12-07] MEDS: DUTASTERIDE 0.5 MG CAPSULE PO (08:35)
[2022-12-07] MEDS: GABAPENTIN 100 MG CAPSULE 200 MG PO (08:36)
[2022-12-07] MEDS: APIXABAN 5 MG TABLET PO (08:36)
[2022-12-07] MEDS: TAMSULOSIN HCL 0.4 MG CAPSULE PO (08:36)
[2022-12-07] MEDS: levETIRAcetam 500 MG TABLET BY MOUTH (08:36)
[2022-12-07] MEDS: MULTIVITAMINS THERAPEUTIC TAB (*BKC) 1 TABLET PO (08:36)
--- NOTE | 2022-12-07 11:49 | PC.NURSE ---
On 12/07/22, the student, [Priscila Evans], provided care and completed [facility] documentation on this patient. I have reviewed the student's documentation and agree with the findings.
[2022-12-07 12:00] VITALS: PULSE 82
--- NOTE | 2022-12-07 12:09 | PM.DS ---
DS: Admitting Diagnosis Discharge Date 12/07/2022 Admitting Diagnosis chest pain DS: Discharge Diagnosis Discharge Diagnosis (1) Chest pain: Code(s): R07.9 - Chest pain, unspecified Status: Acute (2) Urinary tract infection: Code(s): N39.0 - Urinary tract infection, site not specified Status: Acute (3) BPH (benign prostatic hyperplasia): Code(s): N40.0 - Benign prostatic hyperplasia without lower urinary tract symptoms Status: Acute (4) HTN (hypertension): Code(s): I10 - Essential (primary) hypertension Status: Acute (5) Factor V Leiden: Code(s): D68.51 - Activated protein C resistance Status: Chronic (6) Dementia: Code(s): F03.90 - Unspecified dementia, unspecified severity, without behavioral disturbance, psychotic disturbance, mood disturbance, and anxiety Status: Chronic (7) Polyneuropathy, unspecified: Code(s): G62.9 - Polyneuropathy, unspecified Status: Chronic (8) Seizure disorder: Code(s): G40.909 - Epilepsy, unspecified, not intractable, without status epilepticus Status: Acute DS: Summary Hospital Course Hospital Course: # Chest pain: Troponins are negative x3. Echo? with normal EF 65-70% grade 1 diastolic dysfunction.? Mild pulmonary hypertension.? Moderate pericardial effusion. ? Patient has no further complaints of chest pain. # UTI: The patient was started on Rocephin. Urine culture with E coli pansensitive continue Rocephin Tailor antibiotics according to cultures and sensitivities. Switched to amoxicillin was sensitive for 7 days total course # BPH: Continue with Avodart and tamsulosin . Suggest follow-up with urology as an outpatient # hypertension: Patient is just on medication for BPH. # factor 5 Leiden: Continue with Eliquis # dementia: Continue with Aricept # polyneuropathy: Continue with home medications. # seizure disorder: Continue with Keppra # Recurrent UTIs # CKD stage 3 Time Spent with Patient Time attestation: Total time spent providing and/or coordinating discharge services:45 mins Exam Narrative: Patient appears chronically ill not in acute distress Patient is comfortable, NAD HEENT: eyes are clear and none icteric LUNGS: Normal respiratory effort, diminished breath sound bilaterally ABD: Not distended soft nontender Lower extremities: no edema cyanosis or clubbing SKIN: nonjaundiced Neuro: grossly intact. confused looking; DS: Data Data Completed and Pending Completed studies during hospitalization: Exam Type: ? ? CA echo doppler color flow Study Info Indications ? ? R07.9 - Chest pain,? unspecified Complete two-dimensional, color flow and Doppler transthoracic echocardiogram is performed. Account #: ? ? [id number] Summary ? 1. Complete two-dimensional, color flow and Doppler transthoracic echocardiogram is performed. ? 2. Left ventricular chamber dimension is normal. ? 3. Left ventricular systolic function is normal, estimated at 65-70%. ? 4. There is mildly increased left ventricular wall thickness. ? 5. The left ventricular diastolic function is grade I diastolic dysfunction. ? 6. There is moderate aortic valve calcification. ? 7. There is mild mitral valve regurgitation. ? 8. There is mild tricuspid valve regurgitation. ? 9. Mild pulmonary hypertension, estimated pulmonary arterial systolic pressure is 38 mmHg. ? 10. There is moderate anterior pericardial effusion. ? 11. The pericardium appears thickened pericardium. Left Ventricle ? Left ventricular chamber dimension is normal. ? Left ventricular systolic function is normal, estimated at 65-70%. ? There is mildly increased left ventricular wall thickness. ? The left ventricular diastolic function is grade I diastolic dysfunction. Right Ventricle ? Right ventricular chamber dimension is normal. ? Right ventricular systolic function is normal. Left Atria ? Left atri
== END 2022-12-07 13:53 | disposition home health service (06) | DRG 313 ==
LOC: ANHED 13:05 → ANHIMU 16:09 → ANH2MED 12-06 15:13
PROVIDERS: Nurse Practitioner; Admitting Provider Family Medicine; Emergency Provider Emergency Medicine; PCP Family Medicine Adolescent Medicine; Visit Provider Internal Medicine
DX: R07.9 Chest pain, unspecified (principal); N39.0 Urinary tract infection, site not specified; D68.51 Activated protein C resistance; I31.39 Other pericardial effusion (noninflammatory); B96.20 Unspecified Escherichia coli [E. coli] as the cause of diseases classified elsewhere; I27.20 Pulmonary hypertension, unspecified; I12.9 Hypertensive chronic kidney disease with stage 1 through stage 4 chronic kidney disease, or unspecified chronic kidney disease; N18.9 Chronic kidney disease, unspecified; N40.0 Benign prostatic hyperplasia without lower urinary tract symptoms; F03.90 Unspecified dementia, unspecified severity, without behavioral disturbance, psychotic disturbance, mood disturbance, and anxiety; G62.9 Polyneuropathy, unspecified; G40.909 Epilepsy, unspecified, not intractable, without status epilepticus; L97.519 Non-pressure chronic ulcer of other part of right foot with unspecified severity; Z74.01 Bed confinement status
CPT/HCPCS: 36415; 71045; 80053; 81001; 82948; 83605; 83735; 83880; 84443; 84484; 85025; 85610; 85730; 87040; 87077; 87086; 87186; 93005; 93306; 93970; 96365; 96376; 97161; 99285; A9270; G0378; J0696

== ENCOUNTER 2023-08-08 11:48 | Inpatient (IN) | payer OTHER, SELFPAY ==
[2023-08-08] VITALS (28 sets, daily range): BP systolic 77–123; BP diastolic 52–80; PULSE 60–72; RESP 10–21; TEMP 36.1; O2SAT 88–98
--- NOTE | ~2023-08-08 | XR_ITS ---
XR chest 1V portable 08/08/2023 12:25 Indication: Altered mental status. Lethargy. Procedure: AP portable chest Comparison: Comparison to multiple prior studies sequentially, with oldest reviewed study dated 07/04. Findings: Left basilar airspace consolidation, consistent with pneumonia. Right lung clear. Small lef t pleural effusion. No pneumothorax. No acute osseous abnormality. There are multiple healed left low er rib fractures. Impression: 1: Left basilar airspace disease, compatible with pneumonia. Reviewed, dictated and finalized at location [facility] Impression: 1: Left basilar airspace disease, compatible with pneumonia.
--- NOTE | 2023-08-08 12:06 | ECG_ITS ---
Measurements Intervals [place] Rate: 71 P: 22 SC: 147 QRS: -33 QRSD: 106 T: 67 QT: 389 QTc: 424 Interpretive Statements SINUS RHYTHM MARKED LEFT AXIS DEVIATION [QRS AXIS < -30] POOR R-WAVE PROGRESSION COMPARED TO ECG 12/04/2022 13:05:47 NO SIGNIFICANT CHANGE Electronically Signed On 08-08-2023 19:16:23 PHARMACY BUYER by Tiffanie Franco M.D.
--- NOTE | 2023-08-08 12:16 | ED.AMS ---
HPI - Altered Mental Status General Chief Complaint: Altered Mental Status Stated Complaint: AMS Time Seen by Provider: 08/08/23 12:12 Source: patient Mode of arrival: ambulatory Limitations: no limitations History of Present Illness HPI narrative: 82 years old white male came to the emergency room by ambulance from home with his was telling me that patient been deteriorating, lethargic, weak, unable to eat or drink over the last 3 days got worse today. Patient use to feed himself, unable to do it right now. 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 requested no strenuous measures just treat what he have which high locked the urinary tract infection but no invasive procedures and the central line, resuscitation, defibrillations or intubation. Patient normally knows his name. Related Data Home Medications Medication Instructions Recorded Confirmed Adults Multivitamin 1 tab-cap PO DAILY 07/27/22 12/04/22 cetirizine 10 mg tablet (Zyrtec) 10 mg PO DAILY PRN Allergy Symptoms 07/27/22 12/04/22 triamcinolone acetonide 0.1 % 1 applic topical DAILY PRN Wound 07/27/22 12/04/22 topical cream Healing Calcium-Vitamin D See Rx Instructions .Route .COMPLEX 12/04/22 12/04/22 donepezil 10 mg tablet 10 mg PO HS 12/04/22 12/04/22 famotidine 10 mg tablet 10 mg PO DAILY 05/16/23 mirtazapine 7.5 mg tablet 7.5 mg PO DAILY 05/16/23 montelukast 10 mg tablet 10 mg PO DAILY 05/16/23 Allergies Allergy/AdvReac Type Severity Reaction Status Date / Time doxycycline Allergy Mild rash Verified 08/08/23 12:33 Review of Systems Review of Systems: All systems reviewed & are unremarkable except as noted in HPI and below PMFSH Past Medical History Medical History Aspiration pneumonia Atherosclerotic heart disease of [place] coronary artery without angina pectoris BPH (benign prostatic hyperplasia) Chronic renal failure, stage 3a COVID-19 Dementia Erectile dysfunction Factor V Leiden Osteoporosis Peripheral neuropathy Pulmonary embolism with acute cor pulmonale (12/2017) He was transferred to tertiary care for thrombectomy with echo at that time demonstrated severe pulmonary hypertension and positive Adame sign Seizure disorder Thoracic aortic aneurysm Urge incontinence of urine Surgical History Surgical History History of fusion of cervical spine History of inguinal hernia repair, bilateral History of lumbar discectomy Family History Family History Mother Diabetes mellitus Heart disease Sibling Diabetes mellitus Father Dementia Social History Social History Social History: Patient has been for over 60 years and continues to live with his . He used to smoke in the distant past. Does not drink alcohol. . He is wheelchair bound. He retired from the [employer]. Code status full code Smoking status: Former smoker Tobacco type: cigarettes Second hand tobacco smoke exposure: No Alcohol intake: never Substance use: never Substance use type: does not use Lack of Transportation: No Lack of Food: Never True Current Housing: I Have Housing Concerned About Future Housing: No Difficulty Paying Gas/Electric Bills: No Difficulty Paying for Meds: No Currently Unemployed: No Education: High School Diploma/GED Difficulty w/ Childcare or Family Care: No Living arrangements: with family Occupation/Education: retired Gender identity (if verbalized by the patient): Male Sexual Orientation (if Verbalized by the Patient): Straight or Heterosexual Spiritual care concerns: No Exam Narrative: General appearance: Well-developed, well-nourished , severely ill, lethargic, responsive to painful stimuli Skin: scattered
[2023-08-08 12:29] LABS: Basophils Percent Auto 0.5 % (0.2-1.2); Eosinophils Absolute Auto 0.1 K/mm3 (0-0.3); Eosinophils Percent Auto 1.4 % (0-4.4); Hematocrit 39.2 % (42.0-52.0); Hemoglobin 12.6 g/dL (14.0-18.0); Immature Granulocyte Absolute 0.04 K/mm3 (0.00-0.031); Immature Granulocyte Percent A 0.6 % (0-0.5); Lymphocytes Absolute Auto 0.92 K/mm3 (0.9-3.2); Lymphocytes Percent Auto 14.4 % (18.3-44.2); Mean Corpuscular HGB Conc 32.1 g/dl (32-36); Mean Corpuscular Hemoglobin 28.6 pg (26-34); Mean Corpuscular Volume 88.9 fl (80-100); Mean Platelet Volume 10.8 fl (7.4-10.4); Monocytes Absolute Auto 0.4 K/mm3 (0.1-0.6); Monocytes Percent Auto 5.9 % (2.6-8.5); Neutrophils Absolute Auto 4.9 K/mm3 (1.3-6.7); Neutrophils Percent Auto 77.2 % (45.5-73.1); Platelet Count Result 188 k/mm3 (150-375); Red Blood Count 4.41 M/mm3 (4.6-6.20); Red Cell Distribution Width 14.7 % (11.5-14.5); White Blood Count 6.4 K/mm3 (4.5-10.0)
[2023-08-08 12:39] LABS: Alanine Aminotransferase 93 U/L (6-50); Albumin Level 3.5 g/dL (3.5-5.1); Alkaline Phosphatase 136 U/L (38-126); Anion Gap 5 mmol/L (8-16); Aspartate Amino Transferase 67 U/L (17-59); Bilirubin,Total 0.4 mg/dL (0.2-1.3); Blood Urea Nitrogen 24 mg/dL (9-20); Calcium 9.6 mg/dL (8.4-10.2); Carbon Dioxide 26 mmol/L (22-30); Chloride 106 mmol/L (98-107); Estimated Glomerular Filt Rate > 60; Glucose 137 mg/dL (65-110); Potassium 3.8 mmol/L (3.4-5.0); Sodium 137 mmol/L (137-145)
[2023-08-08] MEDS: SODIUM CHLORIDE 0.9% IV 1,000 ML 30 ML IV CONT (12:46)
[2023-08-08 13:10] LABS: Influenza A QL RT-PCR Negative (Negative); Influenza B QL RT-PCR Negative (Negative); RSV RNA, RT-PCR Negative (Negative); SARS-CoV-2 RNA PCR Negative (Negative)
[2023-08-08 13:28] LABS: Lactic Acid Reflex 1.1 mmol/L (0.7-2.0)
[2023-08-08] MEDS: SODIUM CHLORIDE 0.9% IV 1,000 ML 999 ML IV CONT (14:22)
[2023-08-08 14:52] LABS: Appearance Urine Cloudy (Clear); Bacteria Urine 4+ /hpf; Bilirubin Urine Negative (Negative); Blood Urine Negative (Negative); Color Urine Yellow (Yellow); Glucose Urine UA Negative (Negative); Ketones Urine Negative (Negative); Leukocyte Esterase Ur 3+ LEU/UL (Negative); Nitrate Urine Positive (Negative); Non Pathogenic Casts 0-2; Protein Urine Trace mg/dL (Negative); RBC Urine 0-2 /hpf (0-2); Specific Grav Ur 1.014 (1.001-1.035); Squamous Epithelial Cell Urine None seen /hpf (Few); Urobilinogen Urine 0.2 mg/dL (<2.0); pH Urine 7.5 (5.0-9.0)
[2023-08-08 14:56] LABS: Add Urine Microscopic? YES
[2023-08-08] MEDS: AZITHROMYCIN 500 MG/NS 250 ML 500 MG/250 ML BAG 250 MG IVPB (15:40)
--- NOTE | 2023-08-08 18:40 | ADMGEN ---
This patient, Juan Manuel Vargas Sr., was admitted to Medical Room 341-01. Patient/family oriented to hospital policies and general routines including ID bracelet, bed and alarms, visiting hours, pain management, procedures, bathroom and other care routines, personal items, smoking policy, room service/diet, and visiting hours. Information on how to activate the Rapid Response Team has been discussed. Patient/Family are encouraged to report perceived risks to care and to ask questions if they do not understand what they are told or what they should do.
--- NOTE | 2023-08-08 19:59 | PM.IMHP ---
H&P: HPI History of Present Illness Date/Time: 08/08/23 19:59 Chief Complaint: AMS Narrative: THIS IS AN 82-YEAR-OLD MALE WITH PAST MEDICAL HISTORY SIGNIFICANT FOR CHRONIC RENAL FAILURE BENIGN PROSTATIC HYPERPLASIA FACTOR V LEIDEN DEFICIENCY PERIPHERAL NEUROPATHY SEIZURE DISORDER OSTEOPOROSIS. I DID PATIENT WAS BROUGHT TO THE EMERGENCY ROOM VIA EMS HAS CONCERNS DUE TO PATIENT'S LETHARGY DECLINE IN THE LAST SEVERAL DAYS HAS NOT BEEN ABLE TO FEED HIMSELF OF, POOR PER ORALLY INTAKE. PRELIMINARY WORKUP WAS SIGNIFICANT FOR CHEST X-RAY SHOWED LEFT BASAL INFILTRATE A URINALYSIS SHOWED NUMEROUS WBCS XR chest 1V portable 08/08/2023 12:25 Indication: Altered mental status. Lethargy. Procedure: AP portable chest Comparison: Comparison to multiple prior studies sequentially, with oldest reviewed study dated? 07/30/2022. Findings: Left basilar airspace consolidation, consistent with pneumonia. Right lung clear. Small left pleural effusion. No pneumothorax. No acute osseous abnormality. There are multiple healed left lower rib fractures. Impression: 1: Left basilar airspace disease, compatible with pneumonia. Review of Systems Review of Systems: ROS unobtainable: Yes unobtainable due to mental status (LETHARGY) [facility] Past Medical History Medical History Aspiration pneumonia Atherosclerotic heart disease of [place] coronary artery without angina pectoris BPH (benign prostatic hyperplasia) Chronic renal failure, stage 3a COVID-19 Dementia Erectile dysfunction Factor V Leiden Osteoporosis Peripheral neuropathy Pulmonary embolism with acute cor pulmonale (12/2017) He was transferred to tertiary care for thrombectomy with echo at that time demonstrated severe pulmonary hypertension and positive Adame sign Seizure disorder Thoracic aortic aneurysm Urge incontinence of urine Surgical History Surgical History History of fusion of cervical spine History of inguinal hernia repair, bilateral History of lumbar discectomy Family History Family History Mother Diabetes mellitus Heart disease Sibling Diabetes mellitus Father Dementia Social History Social History Social History: Patient has been for over 60 years and continues to live with his . He used to smoke in the distant past. Does not drink alcohol. . He is wheelchair bound. He retired from the [employer]. Code status full code Smoking status: Former smoker Tobacco type: cigars Second hand tobacco smoke exposure: No Alcohol intake: never Substance use: never Substance use type: does not use Lack of Transportation: No Lack of Food: Never True Current Housing: I Have Housing Concerned About Future Housing: No Difficulty Paying Gas/Electric Bills: No Difficulty Paying for Meds: No Currently Unemployed: No Education: High School Diploma/GED Difficulty w/ Childcare or Family Care: No Living arrangements: with family Occupation/Education: retired Gender identity (if verbalized by the patient): Male Sexual Orientation (if Verbalized by the Patient): Straight or Heterosexual Spiritual care concerns: No Meds Home Medications and Allergies Home Medications Medication Instructions Recorded Confirmed Type cetirizine 10 mg tablet (Zyrtec) 10 mg PO DAILY PRN Allergy Symptoms 07/27/22 08/08/23 History triamcinolone acetonide 0.1 % 1 applic topical DAILY PRN Wound 07/27/22 08/08/23 History topical cream Healing donepezil 10 mg tablet 10 mg PO HS 12/04/22 08/08/23 History apixaban 5 mg tablet (Eliquis) 5 mg PO Q12H #180 tabs 12/21/22 08/08/23 Rx levetiracetam 500 mg tablet See Rx Instructions .Route 05/02/23 08/08/23 Rx .COMPLEX #270 tabs famotidine 10 mg tablet 20 mg PO DAILY 05/16/23 08/08/23
[2023-08-08] MEDS: GABAPENTIN 100 MG CAPSULE 200 MG PO (21:28)
[2023-08-08] MEDS: TAMSULOSIN HCL 0.4 MG CAPSULE PO (21:28)
[2023-08-08] MEDS: MIRTAZAPINE 7.5 MG TABLET PO (21:28)
[2023-08-08] MEDS: DONEPEZIL HCL 10 MG TABLET PO (21:28)
[2023-08-08] MEDS: APIXABAN 5 MG TABLET PO (21:29)
[2023-08-08] MEDS: levETIRAcetam 500 MG TABLET 1000 MG BY MOUTH (21:29)
[2023-08-09 06:00] VITALS: TEMP 36.3
[2023-08-09 07:53] VITALS: BP 125/67; PULSE 65; RESP 16; TEMP 36.3; O2SAT 94
[2023-08-09] MEDS: CALCIUM CARBONATE (TUMS) 500 MG (200 MG ELEMENTAL) 1000 MG PO ×2 (09:40→17:13)
[2023-08-09] MEDS: MEMANTINE 5 MG TABLET 10 MG PO ×2 (09:40→17:13)
[2023-08-09] MEDS: GABAPENTIN 100 MG CAPSULE 200 MG PO ×4 (09:40→22:00)
[2023-08-09] MEDS: FAMOTIDINE 20 MG TABLET PO (09:40)
[2023-08-09] MEDS: MONTELUKAST SODIUM 10 MG TABLET PO (09:40)
[2023-08-09] MEDS: FINASTERIDE 5 MG TABLET PO (09:41)
[2023-08-09] MEDS: PSYLLIUM POWDER PACKET 1 PACKET PO (09:41)
[2023-08-09] MEDS: levETIRAcetam 500 MG TABLET BY MOUTH (09:41)
[2023-08-09] MEDS: FLUTICASONE PROPIONATE 0.05% NA SPR 16 GM BTL (*BKC) 1 SPRAY NASAL (09:42)
[2023-08-09] MEDS: APIXABAN 5 MG TABLET PO ×2 (13:30→21:59)
[2023-08-09] MEDS: AZITHROMYCIN 500 MG/NS 250 ML 500 MG/250 ML BAG 250 MG IVPB (13:34)
[2023-08-09 14:00] VITALS: BP 114/94; PULSE 70; RESP 20; TEMP 36.6; O2SAT 95
--- NOTE | 2023-08-09 14:53 | PM.IMPN ---
Progress Note: A&P Assessment and Plan (1) AMS (altered mental status): Code(s): R41.82 - Altered mental status, unspecified Status: Acute (2) Urinary tract infection: Code(s): N39.0 - Urinary tract infection, site not specified Status: Acute (3) Community acquired pneumonia: Code(s): J18.9 - Pneumonia, unspecified organism Status: Acute Plan 82M w/ PMH CKD 3a, BPH, factor V Leiden deficiency, peripheral neuropathy, seizure disorder, osteoporosis, dementia, presents with increased lethargy and confusion from home. Admitted on 08/08 for UTI, AMS, PNA. # acute toxic encephalopathy - likely 2/2 UTI and CAP - f/u cultures - cont ceftriaxone and azithromycin for at least 5 days, assess for improvement # CKD3a - stable, CTM # factor V Leiden def - cont eliquis FEN: saline lock IV, cardiac diet GI prophylaxis: cont home pepcid dose DVT prophylaxis: cont home eliquis Lines: pIV Code Status: DNR Dispo: stable. look to d/c tomorrow if stable More than 25 minutes spent on chart review, patient interaction and assessment and plan. Subjective Date/time seen: 08/09/23 14:53 Interval history: NAOE. pt is confused, A&Ox1 only. he denies complaints. he is able to follow commands. Review of Systems Review of Systems: All systems reviewed & are unremarkable except as noted in HPI and below Exam Const: General: comfortable and no acute distress Eyes: Pupils: Equal, round and reactive pupils present Resp: Effort & Inspection: normal respiratory effort Auscultation: clear to auscultation bilaterally Cardio: Rate: regular rate Rhythm: regular rhythm Heart sounds: no gallops, no murmurs and no rubs Extrem: General: no edema Objective Data Vital Signs Vital Signs: Vital Signs - 24 hr 08/08/23 15:20 08/08/23 15:39 08/08/23 15:30 Temperature Pulse Rate 67 69 Respiratory Rate 12 21 H Blood Pressure 99/52 L Pulse Oximetry 98 08/08/23 15:45 08/08/23 15:46 08/08/23 16:29 Temperature Pulse Rate 64 61 72 Respiratory Rate 11 L 18 12 Blood Pressure 123/56 L Pulse Oximetry 95 91 92 08/08/23 16:30 08/08/23 16:32 08/08/23 16:45 Temperature Pulse Rate 66 66 70 Respiratory Rate 10 L 11 L 13 Blood Pressure 77/55 L Pulse Oximetry 93 92 95 08/08/23 16:46 08/08/23 17:04 08/08/23 17:15 Temperature Pulse Rate 69 66 64 Respiratory Rate 15 11 L 11 L Blood Pressure 93/72 L Pulse Oximetry 95 90 91 08/08/23 17:16 08/08/23 17:30 08/08/23 17:31 Temperature Pulse Rate 65 67 65 Respiratory Rate 11 L 11 L 11 L Blood Pressure 84/53 L 84/64 L Pulse Oximetry 88 L 89 L 88 L 08/08/23 18:00 08/08/23 17:32 08/08/23 17:45 Temperature Pulse Rate 64 65 Respiratory Rate 12 12 Blood Pressure 92/55 L Pulse Oximetry 91 92 08/08/23 17:47 08/08/23 17:57 08/08/23 18:00 Temperature Pulse Rate 64 63 63 Respiratory Rate 11 L 11 L 12 Blood Pressure Pulse Oximetry 90 90 91 08/08/23 22:44 08/09/23 06:00 08/09/23 07:53 Temperature 97.0 F L 97.4 F L 97.4 F L Pulse Rate 71 65 Respiratory Rate 16 16 Blood Pressure 117/58 L 125/67 Pulse Oximetry 96 94 Intake/Output Intake/Output: Intake & Output 08/06/23 08/07/23 08/08/23 08/09/23 23:59 23:59 23:59 23:59 Intake Total 1300 420 Output Total 500 Balance 800 420 Meds/Results Medications: Active Medications Generic Name Dose Route Start Last Admin Trade Name Freq PRN Reason Stop Dose Admin Acetaminophen 1,000 mg 08/08/23 20:05 Acetaminophen 500 Mg Tablet PO Q6H PRN Mild Pain (1-3) or Fever Al Hydrox/Mg Hydrox/Simethicone 30 ml 08/08/23 20:05 Mag Hydrox/Al Hydrox/Simeth 30 Ml Udc PO Q6H PRN Indigestion Apixaban 5 mg 08/08/23 21:00 08/09/23 13:30 Apixaban 5 Mg Tablet PO 5 mg Q12H MONE Administration Calcium Carbonate 1,000 mg 08/09/23 09:00 08/09/23 09:40 Calcium Carbonate (Tums) 500 Mg (200 Mg Element
[2023-08-09 22:00] VITALS: BP 121/60; PULSE 77; RESP 16; TEMP 36.9; O2SAT 94
[2023-08-09] MEDS: MIRTAZAPINE 7.5 MG TABLET PO (22:00)
[2023-08-09] MEDS: DONEPEZIL HCL 10 MG TABLET PO (22:00)
[2023-08-09] MEDS: TAMSULOSIN HCL 0.4 MG CAPSULE PO (22:00)
[2023-08-09] MEDS: levETIRAcetam 500 MG TABLET 1000 MG BY MOUTH (22:00)
[2023-08-10 06:00] VITALS: BP 104/55; PULSE 77; RESP 16; TEMP 35.8; O2SAT 93
[2023-08-10 06:03] LABS: Basophils Percent Auto 0.3 % (0.2-1.2); Eosinophils Absolute Auto 0.1 K/mm3 (0-0.3); Hematocrit 37.2 % (42.0-52.0); Hemoglobin 12.1 g/dL (14.0-18.0); Immature Granulocyte Absolute 0.07 K/mm3 (0.00-0.031); Immature Granulocyte Percent A 0.6 % (0-0.5); Lymphocytes Absolute Auto 1.01 K/mm3 (0.9-3.2); Mean Corpuscular HGB Conc 32.5 g/dl (32-36); Mean Corpuscular Hemoglobin 28.7 pg (26-34); Mean Corpuscular Volume 88.4 fl (80-100); Mean Platelet Volume 10.7 fl (7.4-10.4); Monocytes Absolute Auto 0.7 K/mm3 (0.1-0.6); Monocytes Percent Auto 6.2 % (2.6-8.5); Neutrophils Absolute Auto 9.3 K/mm3 (1.3-6.7); Neutrophils Percent Auto 82.9 % (45.5-73.1); Platelet Count Result 175 k/mm3 (150-375); Red Blood Count 4.21 M/mm3 (4.6-6.20); Red Cell Distribution Width 14.6 % (11.5-14.5); White Blood Count 11.3 K/mm3 (4.5-10.0)
[2023-08-10 06:18] LABS: Alanine Aminotransferase 73 U/L (6-50); Albumin Level 2.9 g/dL (3.5-5.1); Alkaline Phosphatase 119 U/L (38-126); Anion Gap 6 mmol/L (8-16); Aspartate Amino Transferase 66 U/L (17-59); Bilirubin,Total 0.4 mg/dL (0.2-1.3); Blood Urea Nitrogen 23 mg/dL (9-20); Calcium 9.2 mg/dL (8.4-10.2); Carbon Dioxide 25 mmol/L (22-30); Chloride 106 mmol/L (98-107); Estimated CRCL calculation 45 ml/min; Estimated Glomerular Filt Rate > 60; Glucose 66 mg/dL (65-110); Potassium 3.9 mmol/L (3.4-5.0); Sodium 137 mmol/L (137-145)
[2023-08-10] MEDS: CALCIUM CARBONATE (TUMS) 500 MG (200 MG ELEMENTAL) 1000 MG PO (10:53)
[2023-08-10] MEDS: APIXABAN 5 MG TABLET PO ×2 (10:53→21:59)
[2023-08-10] MEDS: FAMOTIDINE 20 MG TABLET PO (10:54)
[2023-08-10] MEDS: FLUTICASONE PROPIONATE 0.05% NA SPR 16 GM BTL (*BKC) 1 SPRAY NASAL (10:54)
[2023-08-10] MEDS: FINASTERIDE 5 MG TABLET PO (10:54)
[2023-08-10] MEDS: GABAPENTIN 100 MG CAPSULE 200 MG PO ×4 (10:55→21:59)
[2023-08-10] MEDS: PSYLLIUM POWDER PACKET 1 PACKET PO (10:56)
[2023-08-10] MEDS: MEMANTINE 5 MG TABLET 10 MG PO ×2 (10:56→17:33)
[2023-08-10] MEDS: MONTELUKAST SODIUM 10 MG TABLET PO (10:56)
[2023-08-10] MEDS: levETIRAcetam 500 MG TABLET BY MOUTH (10:56)
[2023-08-10] MEDS: AZITHROMYCIN 500 MG/NS 250 ML 500 MG/250 ML BAG 250 MG IVPB (11:44)
--- NOTE | 2023-08-10 14:04 | PM.IMPN ---
Progress Note: A&P Assessment and Plan (1) AMS (altered mental status): Code(s): R41.82 - Altered mental status, unspecified Status: Acute (2) Urinary tract infection: Code(s): N39.0 - Urinary tract infection, site not specified Status: Acute (3) Community acquired pneumonia: Code(s): J18.9 - Pneumonia, unspecified organism Status: Acute (4) Seizure disorder: Code(s): G40.909 - Epilepsy, unspecified, not intractable, without status epilepticus Status: Acute Plan 82M w/ PMH CKD 3a, BPH, factor V Leiden deficiency, peripheral neuropathy, seizure disorder, osteoporosis, dementia, recurrent pneumonia and UTI, presents with increased lethargy and confusion from home. Admitted on 08/08 for UTI, AMS, PNA. # acute toxic encephalopathy - likely 2/2 UTI and CAP. he is near his baseline. - urine culture mixed danisha, previous culture grew e coli sensitive to ceftriaxone, will continue that - ceftriaxone and azithromycin for CAP - blood culture NGTD - leukocytosis - mild. ctm. check pro calc in am to help guide therapy. does not want to pursue MRI or aggressive evaluation - check keppra level # transaminitis - mild, and improving. f/u outpatient eval # CKD3a - stable, CTM # factor V Leiden def - cont eliquis FEN: saline lock IV, cardiac diet GI prophylaxis: cont home pepcid dose DVT prophylaxis: cont home eliquis Lines: pIV Code Status: DNR Dispo: believes patient is still confused, he cannot feed himself. check keppra level and monitor leukocytosis More than 35 minutes spent on chart review, patient interaction and assessment and plan. Subjective Date/time seen: 08/10/23 14:04 Interval history: is present in room. she reports patient's baseline is A&Ox1 at best, today he appears a bit more confused than usual, is not feeding himself. the patient himself is able to follow commands and identify his and he has no complaints. Review of Systems Review of Systems: All systems reviewed & are unremarkable except as noted in HPI and below Exam Const: General: comfortable and no acute distress Other: A&Ox1, follows simple commands Resp: Effort & Inspection: normal respiratory effort Auscultation: clear to auscultation bilaterally Cardio: Rate: regular rate Rhythm: regular rhythm Heart sounds: no gallops, no murmurs and no rubs GI: GI Palp: Yes Soft to palpation and No Tenderness to palpation present (GI) Extrem: General: no edema Objective Data Vital Signs Vital Signs: Vital Signs - 24 hr 08/09/23 22:00 08/09/23 20:00 08/10/23 06:00 Temperature 98.4 F 96.5 F L Pulse Rate 77 77 Respiratory Rate 16 16 Blood Pressure 121/60 104/55 L Pulse Oximetry 94 93 Oxygen Delivery Room Air 08/10/23 10:43 Temperature Pulse Rate Respiratory Rate Blood Pressure Pulse Oximetry Oxygen Delivery Room Air Intake/Output Intake/Output: Intake & Output 08/07/23 08/08/23 08/09/23 08/10/23 23:59 23:59 23:59 23:59 Intake Total 1300 1820 540 Output Total 500 Balance 800 1820 540 Meds/Results Medications: Active Medications Generic Name Dose Route Start Last Admin Trade Name Freq PRN Reason Stop Dose Admin Acetaminophen 1,000 mg 08/08/23 20:05 Acetaminophen 500 Mg Tablet PO Q6H PRN Mild Pain (1-3) or Fever Al Hydrox/Mg Hydrox/Simethicone 30 ml 08/08/23 20:05 Mag Hydrox/Al Hydrox/Simeth 30 Ml Udc PO Q6H PRN Indigestion Apixaban 5 mg 08/08/23 21:00 08/10/23 10:53 Apixaban 5 Mg Tablet PO 5 mg Q12H MONE Administration Calcium Carbonate 1,000 mg 08/09/23 09:00 08/10/23 10:53 Calcium Carbonate (Tums) 500 Mg (200 Mg Elemental) PO 1,000 mg BID MONE Administration Donepezil HCl 10 mg 08/08/23 21:00 08/09/23 22:00 Donepezil Hcl 10 Mg Tablet PO 10 mg HS MONE Administration Famotidine 20 mg 08/09/23 09:00 08/10/23 10:54 Famotidine 20 Mg Tablet PO 20 mg
[2023-08-10 15:01] VITALS: BP 102/63; PULSE 74; RESP 18; TEMP 36.2; O2SAT 96
[2023-08-10 21:32] VITALS: BP 120/83; PULSE 78; RESP 12; TEMP 35.7; O2SAT 92
[2023-08-10] MEDS: levETIRAcetam 500 MG TABLET 1000 MG BY MOUTH (21:59)
[2023-08-10] MEDS: TAMSULOSIN HCL 0.4 MG CAPSULE PO (21:59)
[2023-08-10] MEDS: DONEPEZIL HCL 10 MG TABLET PO (21:59)
[2023-08-10] MEDS: MIRTAZAPINE 7.5 MG TABLET PO (22:00)
[2023-08-11 06:00] VITALS: BP 121/68; PULSE 63; RESP 16; TEMP 35.9; O2SAT 93
[2023-08-11 06:22] LABS: Basophils Percent Auto 0.3 % (0.2-1.2); Eosinophils Absolute Auto 0.1 K/mm3 (0-0.3); Eosinophils Percent Auto 1.3 % (0-4.4); Hematocrit 37.4 % (42.0-52.0); Hemoglobin 11.9 g/dL (14.0-18.0); Immature Granulocyte Absolute 0.09 K/mm3 (0.00-0.031); Immature Granulocyte Percent A 0.8 % (0-0.5); Lymphocytes Absolute Auto 1.04 K/mm3 (0.9-3.2); Lymphocytes Percent Auto 9.5 % (18.3-44.2); Mean Corpuscular HGB Conc 31.8 g/dl (32-36); Mean Corpuscular Hemoglobin 28.2 pg (26-34); Mean Corpuscular Volume 88.6 fl (80-100); Mean Platelet Volume 10.7 fl (7.4-10.4); Monocytes Absolute Auto 0.9 K/mm3 (0.1-0.6); Monocytes Percent Auto 8.3 % (2.6-8.5); Neutrophils Absolute Auto 8.8 K/mm3 (1.3-6.7); Neutrophils Percent Auto 79.8 % (45.5-73.1); Platelet Count Result 147 k/mm3 (150-375); Red Blood Count 4.22 M/mm3 (4.6-6.20)
[2023-08-11 06:33] LABS: Alanine Aminotransferase 60 U/L (6-50); Albumin Level 2.8 g/dL (3.5-5.1); Alkaline Phosphatase 128 U/L (38-126); Anion Gap 5 mmol/L (8-16); Aspartate Amino Transferase 38 U/L (17-59); Bilirubin,Total 0.3 mg/dL (0.2-1.3); Blood Urea Nitrogen 19 mg/dL (9-20); Calcium 9.1 mg/dL (8.4-10.2); Carbon Dioxide 25 mmol/L (22-30); Chloride 108 mmol/L (98-107); Estimated CRCL calculation 45 ml/min; Estimated Glomerular Filt Rate > 60; Glucose 82 mg/dL (65-110); Potassium 3.7 mmol/L (3.4-5.0); Sodium 138 mmol/L (137-145)
[2023-08-11 06:58] LABS: Procalcitonin 0.3 ng/mL
[2023-08-11] MEDS: FINASTERIDE 5 MG TABLET PO (08:58)
[2023-08-11] MEDS: PSYLLIUM POWDER PACKET 1 PACKET PO (08:58)
[2023-08-11] MEDS: levETIRAcetam 500 MG TABLET BY MOUTH (08:58)
[2023-08-11] MEDS: MEMANTINE 5 MG TABLET 10 MG PO ×2 (08:59→17:01)
[2023-08-11] MEDS: MONTELUKAST SODIUM 10 MG TABLET PO (08:59)
[2023-08-11] MEDS: FAMOTIDINE 20 MG TABLET PO (08:59)
[2023-08-11] MEDS: FLUTICASONE PROPIONATE 0.05% NA SPR 16 GM BTL (*BKC) 1 SPRAY NASAL (08:59)
[2023-08-11] MEDS: GABAPENTIN 100 MG CAPSULE 200 MG PO ×4 (08:59→21:46)
[2023-08-11] MEDS: APIXABAN 5 MG TABLET PO ×2 (08:59→21:46)
--- NOTE | 2023-08-11 11:20 | PC.NURSE ---
RN spoke with hospitalist Lorelei in regards to patient's wanting placement. RN called care coordination and spoke with Jana and updated her on the 's wishes.
[2023-08-11] MEDS: AZITHROMYCIN 500 MG/NS 250 ML 500 MG/250 ML BAG 250 MG IVPB (13:09)
[2023-08-11 14:00] VITALS: BP 107/64; PULSE 58; RESP 16; TEMP 36.1; O2SAT 91
--- NOTE | 2023-08-11 14:04 | PM.IMPN ---
Progress Note: A&P Assessment and Plan (1) AMS (altered mental status): Code(s): R41.82 - Altered mental status, unspecified Status: Acute (2) Urinary tract infection: Code(s): N39.0 - Urinary tract infection, site not specified Status: Acute (3) Community acquired pneumonia: Code(s): J18.9 - Pneumonia, unspecified organism Status: Acute (4) Seizure disorder: Code(s): G40.909 - Epilepsy, unspecified, not intractable, without status epilepticus Status: Acute Plan 82M w/ PMH CKD 3a, BPH, factor V Leiden deficiency, peripheral neuropathy, seizure disorder, osteoporosis, dementia, recurrent pneumonia and UTI, presents with increased lethargy and confusion from home. Admitted on 08/08 for UTI, AMS, PNA. # acute toxic encephalopathy - likely 2/2 UTI and CAP. he is near his baseline. - urine culture mixed danisha, previous culture grew e coli sensitive to ceftriaxone, will continue that - ceftriaxone and azithromycin for CAP - blood culture NGTD - leukocytosis - mild and improving. ctm. pro slade low. does not want to pursue MRI or aggressive evaluation - check keppra level, pending # transaminitis - mild, and improving. f/u outpatient eval # CKD3a - stable, CTM # factor V Leiden def - cont eliquis FEN: saline lock IV, cardiac diet GI prophylaxis: cont home pepcid dose DVT prophylaxis: cont home eliquis Lines: pIV Code Status: DNR Dispo: no longer believes she can care for him at home. care coordination consult placed for placement. More than 35 minutes spent on chart review, patient interaction and assessment and plan. Subjective Date/time seen: 08/11/23 14:04 Interval history: naoe. daughter is at bedside and discussion for 20 minutes is held. the pt himself has no complaints. denies pain. Review of Systems Review of Systems: All systems reviewed & are unremarkable except as noted in HPI and below Exam Const: General: comfortable and no acute distress Other: A&Ox1 Neck: Neck: supple Resp: Effort & Inspection: normal respiratory effort Auscultation: clear to auscultation bilaterally Cardio: Rate: regular rate Rhythm: regular rhythm Heart sounds: no gallops, no murmurs and no rubs Extrem: General: no edema Objective Data Vital Signs Vital Signs: Vital Signs - 24 hr 08/10/23 15:01 08/10/23 21:32 08/10/23 20:00 Temperature 97.2 F L 96.2 F L Pulse Rate 74 78 Respiratory Rate 18 12 Blood Pressure 102/63 120/83 Pulse Oximetry 96 92 Oxygen Delivery Room Air 08/11/23 06:00 08/11/23 09:20 Temperature 96.6 F L Pulse Rate 63 Respiratory Rate 16 Blood Pressure 121/68 Pulse Oximetry 93 Oxygen Delivery Room Air Intake/Output Intake/Output: Intake & Output 08/08/23 08/09/23 08/10/23 08/11/23 23:59 23:59 23:59 23:59 Intake Total 1300 2820 1080 360 Output Total 500 Balance 800 2820 1080 360 Meds/Results Medications: Active Medications Generic Name Dose Route Start Last Admin Trade Name Freq PRN Reason Stop Dose Admin Acetaminophen 1,000 mg 08/08/23 20:05 Acetaminophen 500 Mg Tablet PO Q6H PRN Mild Pain (1-3) or Fever Al Hydrox/Mg Hydrox/Simethicone 30 ml 08/08/23 20:05 Mag Hydrox/Al Hydrox/Simeth 30 Ml Udc PO Q6H PRN Indigestion Apixaban 5 mg 08/08/23 21:00 08/11/23 08:59 Apixaban 5 Mg Tablet PO 5 mg Q12H MONE Administration Calcium Carbonate 1,000 mg 08/09/23 09:00 08/11/23 09:18 Calcium Carbonate (Tums) 500 Mg (200 Mg Elemental) PO Not Given BID MONE Donepezil HCl 10 mg 08/08/23 21:00 08/10/23 21:59 Donepezil Hcl 10 Mg Tablet PO 10 mg HS MONE Administration Famotidine 20 mg 08/09/23 09:00 08/11/23 08:59 Famotidine 20 Mg Tablet PO 20 mg DAILY MONE Administration Finasteride 5 mg 08/09/23 09:00 08/11/23 08:58 Finasteride 5 Mg Tablet PO 09/08/23 08:59 5 mg DAILY MONE Administration Fluticasone Propionate 1
[2023-08-11 20:07] VITALS: BP 114/67; PULSE 63; RESP 14; TEMP 36.4; O2SAT 92
[2023-08-11] MEDS: MIRTAZAPINE 7.5 MG TABLET PO (21:46)
[2023-08-11] MEDS: TAMSULOSIN HCL 0.4 MG CAPSULE PO (21:46)
[2023-08-11] MEDS: levETIRAcetam 500 MG TABLET 1000 MG BY MOUTH (21:46)
[2023-08-11] MEDS: DONEPEZIL HCL 10 MG TABLET PO (21:47)
[2023-08-12 04:39] VITALS: BP 136/86; PULSE 56; RESP 18; TEMP 36.4; O2SAT 97
[2023-08-12 05:50] LABS: Basophils Percent Auto 0.3 % (0.2-1.2); Eosinophils Absolute Auto 0.1 K/mm3 (0-0.3); Eosinophils Percent Auto 1.3 % (0-4.4); Hematocrit 40.9 % (42.0-52.0); Hemoglobin 13.2 g/dL (14.0-18.0); Immature Granulocyte Absolute 0.07 K/mm3 (0.00-0.031); Immature Granulocyte Percent A 0.6 % (0-0.5); Mean Corpuscular HGB Conc 32.3 g/dl (32-36); Mean Corpuscular Hemoglobin 28.9 pg (26-34); Mean Corpuscular Volume 89.7 fl (80-100); Mean Platelet Volume 10.8 fl (7.4-10.4); Monocytes Absolute Auto 0.6 K/mm3 (0.1-0.6); Monocytes Percent Auto 5.5 % (2.6-8.5); Neutrophils Absolute Auto 8.8 K/mm3 (1.3-6.7); Neutrophils Percent Auto 81.3 % (45.5-73.1); Platelet Count Result 153 k/mm3 (150-375); Red Blood Count 4.56 M/mm3 (4.6-6.20); Red Cell Distribution Width 14.8 % (11.5-14.5); White Blood Count 10.9 K/mm3 (4.5-10.0)
[2023-08-12 06:07] LABS: Alanine Aminotransferase 67 U/L (6-50); Albumin Level 3.3 g/dL (3.5-5.1); Alkaline Phosphatase 145 U/L (38-126); Anion Gap 4 mmol/L (8-16); Aspartate Amino Transferase 44 U/L (17-59); Bilirubin,Total 0.4 mg/dL (0.2-1.3); Blood Urea Nitrogen 16 mg/dL (9-20); Calcium 9.4 mg/dL (8.4-10.2); Carbon Dioxide 29 mmol/L (22-30); Chloride 107 mmol/L (98-107); Estimated CRCL calculation 45 ml/min; Estimated Glomerular Filt Rate > 60; Glucose 110 mg/dL (65-110); Potassium 3.5 mmol/L (3.4-5.0); Sodium 140 mmol/L (137-145)
[2023-08-12] MEDS: MONTELUKAST SODIUM 10 MG TABLET PO (09:28)
[2023-08-12] MEDS: FAMOTIDINE 20 MG TABLET PO (09:28)
[2023-08-12] MEDS: APIXABAN 5 MG TABLET PO ×2 (09:28→21:05)
[2023-08-12] MEDS: levETIRAcetam 500 MG TABLET BY MOUTH (09:28)
[2023-08-12] MEDS: MEMANTINE 5 MG TABLET 10 MG PO ×2 (09:28→17:33)
[2023-08-12] MEDS: PSYLLIUM POWDER PACKET 1 PACKET PO (09:28)
[2023-08-12] MEDS: GABAPENTIN 100 MG CAPSULE 200 MG PO ×4 (09:28→21:05)
[2023-08-12] MEDS: FINASTERIDE 5 MG TABLET PO (09:28)
[2023-08-12] MEDS: FLUTICASONE PROPIONATE 0.05% NA SPR 16 GM BTL (*BKC) 1 SPRAY NASAL (09:29)
[2023-08-12] MEDS: AZITHROMYCIN 500 MG/NS 250 ML 500 MG/250 ML BAG 250 MG IVPB (13:14)
[2023-08-12 14:00] VITALS: BP 109/75; PULSE 93; RESP 20; TEMP 37; O2SAT 91
--- NOTE | 2023-08-12 15:23 | PM.IMPN ---
Progress Note: A&P Assessment and Plan (1) AMS (altered mental status): Code(s): R41.82 - Altered mental status, unspecified Status: Acute (2) Community acquired pneumonia: Code(s): J18.9 - Pneumonia, unspecified organism Status: Acute (3) Dementia: Code(s): F03.90 - Unspecified dementia, unspecified severity, without behavioral disturbance, psychotic disturbance, mood disturbance, and anxiety Status: Chronic Plan 5 days abx for pneumonia completed. no change in status. end stage dementia. hospice eval and placement pending. DNR Subjective Date/time seen: 08/12/23 15:23 Interval history: naoe. patient is pleasantly confused as usual. he reports no symptoms, but tells me he is not doing okay however cannot detail why. spoke with Connie over the phone. she requests hospice. Review of Systems Review of Systems: All systems reviewed & are unremarkable except as noted in HPI and below Exam Const: General: comfortable and no acute distress Other: A&Ox 1 Resp: Effort & Inspection: normal respiratory effort Auscultation: clear to auscultation bilaterally Cardio: Rate: regular rate Rhythm: regular rhythm Extrem: General: no edema Objective Data Vital Signs Vital Signs: Vital Signs - 24 hr 08/11/23 20:07 08/11/23 20:00 08/12/23 04:39 Temperature 97.6 F 97.6 F Pulse Rate 63 56 L Respiratory Rate 14 18 Blood Pressure 114/67 136/86 Pulse Oximetry 92 97 Oxygen Delivery Room Air 08/12/23 09:28 08/12/23 14:00 Temperature 98.6 F Pulse Rate 93 Respiratory Rate 20 Blood Pressure 109/75 Pulse Oximetry 91 Oxygen Delivery Room Air Intake/Output Intake/Output: Intake & Output 08/09/23 08/10/23 08/11/23 08/12/23 23:59 23:59 23:59 23:59 Intake Total 2820 1080 1020 460 Output Total 700 650 Balance 2820 1080 320 -190 Meds/Results Medications: Active Medications Generic Name Dose Route Start Last Admin Trade Name Freq PRN Reason Stop Dose Admin Acetaminophen 1,000 mg 08/08/23 20:05 Acetaminophen 500 Mg Tablet PO Q6H PRN Mild Pain (1-3) or Fever Al Hydrox/Mg Hydrox/Simethicone 30 ml 08/08/23 20:05 Mag Hydrox/Al Hydrox/Simeth 30 Ml Udc PO Q6H PRN Indigestion Apixaban 5 mg 08/08/23 21:00 08/12/23 09:28 Apixaban 5 Mg Tablet PO 5 mg Q12H MONE Administration Calcium Carbonate 1,000 mg 08/09/23 09:00 08/12/23 09:28 Calcium Carbonate (Tums) 500 Mg (200 Mg Elemental) PO Not Given BID MONE Donepezil HCl 10 mg 08/08/23 21:00 08/11/23 21:47 Donepezil Hcl 10 Mg Tablet PO 10 mg HS MONE Administration Famotidine 20 mg 08/09/23 09:00 08/12/23 09:28 Famotidine 20 Mg Tablet PO 20 mg DAILY MONE Administration Finasteride 5 mg 08/09/23 09:00 08/12/23 09:28 Finasteride 5 Mg Tablet PO 09/08/23 08:59 5 mg DAILY MONE Administration Fluticasone Propionate 1 spray 08/09/23 09:00 08/12/23 09:29 Fluticasone Propionate 0.05% Na Spr 16 Gm Btl (*Bkc) NASAL 09/08/23 08:59 1 spray DAILY MONE Administration Gabapentin 200 mg 08/08/23 21:00 08/12/23 13:14 Gabapentin 100 Mg Capsule PO 200 mg QID MONE Administration Levetiracetam 1,000 mg 08/08/23 21:00 08/11/23 21:46 Levetiracetam 500 Mg Tablet BY MOUTH 1,000 mg HS MONE Administration Levetiracetam 500 mg 08/09/23 09:00 08/12/23 09:28 Levetiracetam 500 Mg Tablet BY MOUTH 500 mg QAM MONE Administration Memantine 10 mg 08/09/23 18:00 08/11/23 17:01 Memantine 5 Mg Tablet PO 10 mg QPM MONE Administration Memantine 10 mg 08/09/23 09:00 08/12/23 09:28 Memantine 5 Mg Tablet PO 10 mg QAM MONE Administration Mirtazapine 7.5 mg 08/08/23 21:00 08/11/23 21:46 Mirtazapine 7.5 Mg Tablet PO 7.5 mg HS MONE Administration Montelukast Sodium 10 mg 08/09/23 09:00 08/12/23 09:28 Montelukast Sodium 10 Mg Tablet PO 10 mg DAILY MONE Administration Nitr
[2023-08-12 20:23] VITALS: BP 131/66; PULSE 73; RESP 18; TEMP 36.4; O2SAT 93
[2023-08-12] MEDS: levETIRAcetam 500 MG TABLET 1000 MG BY MOUTH (21:05)
[2023-08-12] MEDS: MIRTAZAPINE 7.5 MG TABLET PO (21:05)
[2023-08-12] MEDS: TAMSULOSIN HCL 0.4 MG CAPSULE PO (21:05)
[2023-08-12] MEDS: DONEPEZIL HCL 10 MG TABLET PO (21:05)
[2023-08-13 03:21] LABS: Levetiracetam Keppra 36.3 mcg/mL (6.0-46.0)
[2023-08-13 04:57] VITALS: BP 128/59; PULSE 65; RESP 16; TEMP 36.5; O2SAT 92
[2023-08-13] MEDS: FAMOTIDINE 20 MG TABLET PO (09:10)
[2023-08-13] MEDS: GABAPENTIN 100 MG CAPSULE 200 MG PO ×2 (09:10→22:30)
[2023-08-13] MEDS: levETIRAcetam 500 MG TABLET BY MOUTH (09:10)
[2023-08-13] MEDS: FINASTERIDE 5 MG TABLET PO (09:10)
[2023-08-13] MEDS: MONTELUKAST SODIUM 10 MG TABLET PO (09:10)
[2023-08-13] MEDS: MEMANTINE 5 MG TABLET 10 MG PO (09:10)
[2023-08-13] MEDS: PSYLLIUM POWDER PACKET 1 PACKET PO (09:10)
[2023-08-13] MEDS: FLUTICASONE PROPIONATE 0.05% NA SPR 16 GM BTL (*BKC) 1 SPRAY NASAL (09:11)
[2023-08-13] MEDS: APIXABAN 5 MG TABLET PO ×2 (09:11→22:30)
[2023-08-13 14:00] VITALS: BP 112/62; PULSE 57; RESP 20; TEMP 36.8; O2SAT 90
--- NOTE | 2023-08-13 15:10 | PM.IMPN ---
Progress Note: A&P Assessment and Plan (1) AMS (altered mental status): Code(s): R41.82 - Altered mental status, unspecified Status: Acute (2) Dementia: Code(s): F03.90 - Unspecified dementia, unspecified severity, without behavioral disturbance, psychotic disturbance, mood disturbance, and anxiety Status: Chronic Plan pt will be going home with home hospice tomorrow (family hospice). no further changes today Subjective Date/time seen: 08/13/23 15:10 Interval history: naoe. pt rests comfortably while sittnig up in bed. he has no complaints Review of Systems Review of Systems: All systems reviewed & are unremarkable except as noted in HPI and below Exam Const: General: comfortable and no acute distress Eyes: Pupils: Equal, round and reactive pupils present Resp: Effort & Inspection: normal respiratory effort Auscultation: clear to auscultation bilaterally Cardio: Rate: regular rate Rhythm: regular rhythm Objective Data Vital Signs Vital Signs: Vital Signs - 24 hr 08/12/23 15:19 08/12/23 20:23 08/12/23 20:00 Temperature 97.6 F Pulse Rate 73 Respiratory Rate 18 Blood Pressure 131/66 Pulse Oximetry 93 Oxygen Delivery Room Air Room Air 08/13/23 04:57 08/13/23 08:36 08/13/23 14:00 Temperature 97.7 F 98.2 F Pulse Rate 65 57 L Respiratory Rate 16 20 Blood Pressure 128/59 L 112/62 Pulse Oximetry 92 90 Oxygen Delivery Room Air Intake/Output Intake/Output: Intake & Output 08/10/23 08/11/23 08/12/23 08/13/23 23:59 23:59 23:59 23:59 Intake Total 1080 1020 460 956 Output Total 093 285 400 Balance [facility] 415 -399 -125 Meds/Results Medications: Active Medications Generic Name Dose Route Start Last Admin Trade Name Freq PRN Reason Stop Dose Admin Acetaminophen 1,000 mg 08/08/23 20:05 Acetaminophen 500 Mg Tablet PO Q6H PRN Mild Pain (1-3) or Fever Al Hydrox/Mg Hydrox/Simethicone 30 ml 08/08/23 20:05 Mag Hydrox/Al Hydrox/Simeth 30 Ml Udc PO Q6H PRN Indigestion Apixaban 5 mg 08/08/23 21:00 08/13/23 09:11 Apixaban 5 Mg Tablet PO 5 mg Q12H MONE Administration Calcium Carbonate 1,000 mg 08/09/23 09:00 08/13/23 09:11 Calcium Carbonate (Tums) 500 Mg (200 Mg Elemental) PO Not Given BID MONE Donepezil HCl 10 mg 08/08/23 21:00 08/12/23 21:05 Donepezil Hcl 10 Mg Tablet PO 10 mg HS MONE Administration Famotidine 20 mg 08/09/23 09:00 08/13/23 09:10 Famotidine 20 Mg Tablet PO 20 mg DAILY MONE Administration Finasteride 5 mg 08/09/23 09:00 08/13/23 09:10 Finasteride 5 Mg Tablet PO 09/08/23 08:59 5 mg DAILY MONE Administration Fluticasone Propionate 1 spray 08/09/23 09:00 08/13/23 09:11 Fluticasone Propionate 0.05% Na Spr 16 Gm Btl (*Bkc) NASAL 09/08/23 08:59 1 spray DAILY MONE Administration Gabapentin 200 mg 08/08/23 21:00 08/13/23 13:56 Gabapentin 100 Mg Capsule PO Not Given QID MONE Levetiracetam 1,000 mg 08/08/23 21:00 08/12/23 21:05 Levetiracetam 500 Mg Tablet BY MOUTH 1,000 mg HS MONE Administration Levetiracetam 500 mg 08/09/23 09:00 08/13/23 09:10 Levetiracetam 500 Mg Tablet BY MOUTH 500 mg QAM MONE Administration Memantine 10 mg 08/09/23 18:00 08/12/23 17:33 Memantine 5 Mg Tablet PO 10 mg QPM MONE Administration Memantine 10 mg 08/09/23 09:00 08/13/23 09:10 Memantine 5 Mg Tablet PO 10 mg QAM MONE Administration Mirtazapine 7.5 mg 08/08/23 21:00 08/12/23 21:05 Mirtazapine 7.5 Mg Tablet PO 7.5 mg HS MONE Administration Montelukast Sodium 10 mg 08/09/23 09:00 08/13/23 09:10 Montelukast Sodium 10 Mg Tablet PO 10 mg DAILY MONE Administration Nitroglycerin 0.4 mg 08/08/23 21:54 Nitroglycerin Sl 0.4 Mg Tablet SUBLINGUAL Q5M PRN Chest Pain Polyethylene Glycol 17 gm 08/08/23 20:05 Polyethylene Glycol 3350 17 Gm Powd.Pack PO QAM PRN Constipation Ps
[2023-08-13 20:52] VITALS: BP 110/67; PULSE 70; RESP 16; TEMP 36.5; O2SAT 93
[2023-08-13] MEDS: levETIRAcetam 500 MG TABLET 1000 MG BY MOUTH (22:29)
[2023-08-13] MEDS: TAMSULOSIN HCL 0.4 MG CAPSULE PO (22:30)
[2023-08-13] MEDS: MIRTAZAPINE 7.5 MG TABLET PO (22:30)
[2023-08-13] MEDS: DONEPEZIL HCL 10 MG TABLET PO (22:31)
[2023-08-14 06:02] VITALS: BP 122/59; PULSE 61; RESP 16; TEMP 36.3; O2SAT 95
[2023-08-14] MEDS: PSYLLIUM POWDER PACKET 1 PACKET PO (08:38)
[2023-08-14] MEDS: MONTELUKAST SODIUM 10 MG TABLET PO (08:38)
[2023-08-14] MEDS: APIXABAN 5 MG TABLET PO (08:38)
[2023-08-14] MEDS: FAMOTIDINE 20 MG TABLET PO (08:38)
[2023-08-14] MEDS: FINASTERIDE 5 MG TABLET PO (08:38)
[2023-08-14] MEDS: GABAPENTIN 100 MG CAPSULE 200 MG PO (08:38)
[2023-08-14] MEDS: levETIRAcetam 500 MG TABLET BY MOUTH (08:38)
[2023-08-14] MEDS: MEMANTINE 5 MG TABLET 10 MG PO (08:38)
--- NOTE | 2023-08-14 09:15 | PM.DS ---
DS: Admitting Diagnosis Discharge Date 08/14/23 Admitting Diagnosis altered mental status DS: Discharge Diagnosis Discharge Diagnosis (1) AMS (altered mental status): Code(s): R41.82 - Altered mental status, unspecified Status: Acute (2) Community acquired pneumonia: Code(s): J18.9 - Pneumonia, unspecified organism Status: Acute (3) Urinary tract infection: Code(s): N39.0 - Urinary tract infection, site not specified Status: Acute DS: Summary Hospital Course Hospital Course: 82M w/ PMH CKD 3a, BPH, factor V Leiden deficiency, peripheral neuropathy, seizure disorder, osteoporosis, dementia, recurrent pneumonia and UTI, presents with increased lethargy and confusion from home. Admitted on 08/08 for UTI, AMS, PNA. He was treated with antibiotics, his mental status not improving much. The , his decision maker, decided to pursue hospice in light of his advancing dementia. [facility]. He was DNR during his admission. More than 30 minutes spent on discharge planning and documentation. Time Spent with Patient Time attestation: Total time spent providing and/or coordinating discharge services: Exam Const: General: cooperative and no acute distress Resp: Effort & Inspection: normal respiratory effort Auscultation: clear to auscultation bilaterally Cardio: Rate: regular rate Rhythm: regular rhythm Heart sounds: S1 normal heart sound present and S2 normal heart sound present GI: GI Palp: No abdominal tenderness Auscultation: normal bowel sounds Discharge Plan Discharge Attending physician on discharge: Michelle Moseley Discharging Clinician: Michelle Moseley Patient Disposition: Hospice - Home Activity: may shower Diet: as tolerated Stand Alone Forms: General Discharge Information Discharge Medications: Discontinued mirtazapine 7.5 mg tablet 7.5 mg PO HS montelukast 10 mg tablet 10 mg PO DAILY famotidine 10 mg tablet 20 mg PO DAILY donepezil 10 mg tablet 10 mg PO HS tamsulosin 0.4 mg capsule 0.4 mg PO HS gabapentin 100 mg capsule 200 mg PO QID ketoconazole 2 % shampoo 1 applic TOPICAL DAILY psyllium Packet 1 packet PO DAILY Anjel Powder 1 ea PO DAILY nitroglycerin 0.4 mg Tablet, Sublingual See Rx Instructions .ROUTE .COMPLEX PRN (Reason: Chest Pain) Rx Instructions: 0.4 mg sublingually one time under the tongue for chest pain, in no improvement after first dose take 2 additional doses, 5 minutes apart. memantine 5 mg Tablet 10 mg PO QAM memantine 5 mg Tablet 10 mg PO QPM finasteride 5 mg PO DAILY fluticasone propionate 1 spray intranasal DAILY sulfamethoxazole-trimethoprim 800-160 mg Tablet 1 tablet PO BID calcium carbonate 500 mg calcium (1,250 mg) Tablet,Chewable 1,000 mg PO BID dextromethorphan-guaifenesin [Guaifenesin DM] 10-100 mg/5 mL Syrup 10 ml PO QID PRN (Reason: Congestion) cetirizine [Zyrtec] 10 mg Tablet 10 mg PO DAILY PRN (Reason: Allergy Symptoms) triamcinolone acetonide 0.1 % cream 1 applic TOPICAL DAILY PRN (Reason: Wound Healing) Rx Instructions: blisters on abdomen Eliquis 5 mg tablet 5 mg PO Q12H Qty: 180 1RF levetiracetam 500 mg tablet See Rx Instructions .ROUTE .COMPLEX Qty: 270 3RF Dose Instruction: TAKE ONE TABLET BY MOUTH EVERY MORNING AND 2 TABLETS AT NIGHT Rx Instructions: TAKE ONE TABLET BY MOUTH EVERY MORNING AND 2 TABLETS AT NIGHT Date of admission: 08/08/23 15:37 Primary Care Provider: Roni Iqbal Admitting Provider: Edith Balbuena Attending physician on admission: Edith Balbuena Condition: Guarded Prognosis
== END 2023-08-14 12:06 | disposition hospice, home (50) | DRG 689 ==
LOC: ANHED 15:30 → ANH3MEDSUR 15:59 → ANHIMU 16:28 → ANH3MEDSUR 16:29 → ANH3MED 18:22
PROVIDERS: Emergency Medicine; Admitting Provider Internal Medicine; Emergency Provider Emergency Medicine; PCP Family Medicine Adolescent Medicine; Visit Provider General Practice
DX: N39.0 Urinary tract infection, site not specified (principal); G92.9 Unspecified toxic encephalopathy; J18.9 Pneumonia, unspecified organism; D68.51 Activated protein C resistance; G62.9 Polyneuropathy, unspecified; G40.909 Epilepsy, unspecified, not intractable, without status epilepticus; F03.90 Unspecified dementia, unspecified severity, without behavioral disturbance, psychotic disturbance, mood disturbance, and anxiety; I25.10 Atherosclerotic heart disease of native coronary artery without angina pectoris; M81.0 Age-related osteoporosis without current pathological fracture; N40.0 Benign prostatic hyperplasia without lower urinary tract symptoms; N18.31 Chronic kidney disease, stage 3a; Z66 Do not resuscitate; Z11.52 Encounter for screening for COVID-19; Z86.16 Personal history of COVID-19; Z86.711 Personal history of pulmonary embolism; Z87.891 Personal history of nicotine dependence
CPT/HCPCS: 36415; 71045; 80053; 80177; 81001; 83605; 83735; 84145; 85025; 87040; 87086; 87088; 87637; 93005; 96360; 97161; 97165; 99285; A9270; J0456; J0696; J7030